=== PATIENT | male | born 1960 | race Caucasian/White ===

== ENCOUNTER 2020-03-21 03:57 | Emergency (ER) | payer OTHER ==
[~2020-03-21] VITALS: Ht 170.2 cm; Wt 70.3 kg
[~2020-03-21 03:57] MED LIST: CIPR-273; HYDR1INJ8; NOR10T; OXYB5TAB24; PHENERGAN; TAM04C; TRAZ50TA2; VENL25TA3
[2020-03-21 05:54] VITALS: BP 148/94
[2020-03-21] MEDS: LORazepam 2MG/ML-1ML VIAL IM ONE (05:54)
== END 2020-03-21 06:39 | disposition home or self-care (01) ==
LOC: ER 03:59
DX: F41.0 Panic disorder [episodic paroxysmal anxiety] (principal); I10 Essential (primary) hypertension
CPT/HCPCS: 93005; 96372; 99283; J2060

== ENCOUNTER 2020-04-02 07:47 | Emergency (ER) | payer OTHER ==
[~2020-04-02] VITALS: Ht 170.2 cm; Wt 70.3 kg
[2020-04-02] MEDS ORDERED: ONDANSETRON HCL 4 MG/2 ML VIAL IV ONE ×2 (08:00→13:45)
[2020-04-02] MEDS ORDERED: SODIUM CHLORIDE 0.9% 1,000 ML IV ONE ×2 (08:00)
[2020-04-02 08:38] LABS: Basophils # (auto) 0 10 ^3/uL (0-0.2); Basophils % (auto) 0.4 % (0.0-2.0); Eosinophils # (auto) 0 10 ^3/uL (0-0.8); Eosinophils % (auto) 0.3 % (0.0-7.0); Hematocrit 43.2 % (41.0-53.0); Hemoglobin 15.2 g/dL (13.5-17.5); Lymphocytes # (auto) 0.9 10 ^3/uL (0.4-5.4); Lymphocytes % (auto) 9.7 % (10.0-50.0); Mean Corpuscular Hgb Conc. 35.2 g/dL (32.0-36.0); Mean Corpuscular Volume 90.8 fL (80.0-100.0); Monocytes # (auto) 0.5 10 ^3/uL (0-1.3); Monocytes % (auto) 5.2 % (0.0-12.0); Neutrophils # (auto) 7.5 10 ^3/uL (1.6-8.6); Neutrophils % (auto) 84.4 % (37.0-80.0); Platelet Count (auto) 234 10^3/uL (140-450); Red Blood Cells 4.75 10^6/uL (4.5-5.90); Red Cell Distribution Width 15.4 % (11.8-14.3); White Blood Cell 8.9 10^3/uL (4.4-10.8)
[2020-04-02 09:02] LABS: Albumin 4.5 g/dL (3.4-5.0); Calcium 9.8 mg/dL (8.5-10.1); Potassium 3.7 mmol/L (3.5-5.1)
[2020-04-02 09:07] LABS: BUN/Creatinine Ratio 18.5; Bilirubin, Total 0.4 mg/dL (0.2-1.0); Total Protein 7.8 g/dL (6.4-8.2)
[2020-04-02] MEDS ORDERED: KETOROLAC TROMETH 30 MG/ML 1ML VIAL IV ONE (10:15)
[2020-04-02] MEDS ORDERED: PROMETHAZINE HCL 25 MG/ML 1ML IV ONE (10:15)
[2020-04-02] MEDS ORDERED: LABETALOL HCL 5 MG/ML 4ML SYRINGE IV ONE ×2 (10:15→12:30)
[2020-04-02] MEDS ORDERED: MORPHINE SULF INJ 2 MG/ML SYRINGE 1ML IV ONE (13:45)
[2020-04-02 14:32] LABS: Urine Bacteria FEW /hpf (None Seen); Urine Blood Negative /uL (Negative); Urine Specific Gravity 1.013 (1.001-1.035); Urine WBC 2 /hpf (0 - 3)
[2020-04-02] MEDS ORDERED: cefTRIAXone 1GM/50ML D5W 50 ML IV ONE ×2 (16:12→16:15)
[2020-04-02 16:18] VITALS: BP 145/95
== END 2020-04-02 16:34 | disposition short-term general hospital (02) ==
LOC: ER 07:47 → EDBD 07:47 → ER 16:34
DX: F41.9 Anxiety disorder, unspecified (principal); R11.2 Nausea with vomiting, unspecified; I10 Essential (primary) hypertension; Z79.899 Other long term (current) drug therapy; Z20.822 Contact with and (suspected) exposure to COVID-19
CPT/HCPCS: 36415; 74176; 80053; 81001; 85025; 87426; 93005; 96361; 96365; 96375; 96376; 99285; J0696; J1885; J2270; J2405; J2550; J3490; J7030

== ENCOUNTER 2021-01-18 02:03 | Emergency (ER) | payer OTHER ==
[~2021-01-18] VITALS: Ht 170.2 cm; Wt 68.0 kg
[~2021-01-18 02:03] MED LIST changes: +NITR-87 PO; +VENL1TAB96; -VENL25TA3
[2021-01-18 04:23] VITALS: BP 126/102
[2021-01-18] MEDS ORDERED: ONDANSETRON ODT 4 MG TAB PO ONE (04:45)
[2021-01-18] MEDS ORDERED: hydrOXYzine HCL 10 MG TAB PO ONE (04:45)
== END 2021-01-18 05:01 | disposition home or self-care (01) ==
LOC: ER 02:03
DX: F41.0 Panic disorder [episodic paroxysmal anxiety] (principal); I12.9 Hypertensive chronic kidney disease with stage 1 through stage 4 chronic kidney disease, or unspecified chronic kidney disease; N18.9 Chronic kidney disease, unspecified
CPT/HCPCS: 99283; Q0162

== ENCOUNTER 2021-06-21 12:10 | Emergency (ER) | payer MEDICARE, OTHER ==
[~2021-06-21] VITALS: Ht 170.2 cm; Wt 65.8 kg
[2021-06-21] MEDS ORDERED: ONDANSETRON HCL 4 MG/2 ML VIAL IV ONE ×2 (13:00→14:00)
[2021-06-21] MEDS ORDERED: MORPHINE SULFATE INJECTION 2 MG/ML SYRG IV ONE (13:00)
[2021-06-21] MEDS ORDERED: SODIUM CHLORIDE 0.9% 500 ML IV ONE (13:00)
[2021-06-21 13:10] VITALS: BP 151/81
[2021-06-21 13:28] LABS: Urine Bacteria NONE SEEN /hpf (None Seen); Urine Blood 3+ /uL (Negative); Urine Specific Gravity 1.014 (1.001-1.035); Urine WBC 10 /hpf (0 - 3)
[2021-06-21 13:44] LABS: Amphetamine Screen, Urine NEGATIVE (NEGATIVE); Barbiturate Scree,Urine NEGATIVE (NEGATIVE); Benzodiazephine Screen, Urine NEGATIVE (NEGATIVE); Cannabinoid Screen, Urine POSITIVE (NEGATIVE); Cocaine Screen, Urine NEGATIVE (NEGATIVE); Opiate Scree,Urine NEGATIVE (NEGATIVE)
[2021-06-21 13:51] LABS: Phencyclidine Screen, Urine NEGATIVE (NEGATIVE)
[2021-06-21 14:22] LABS: Basophils # (auto) 0.1 10 ^3/uL (0-0.2); Basophils % (auto) 0.9 % (0.0-2.0); Eosinophils # (auto) 0 10 ^3/uL (0-0.8); Eosinophils % (auto) 0.3 % (0.0-7.0); Hematocrit 38.2 % (41.0-53.0); Hemoglobin 13.3 g/dL (13.5-17.5); Lymphocytes # (auto) 0.8 10 ^3/uL (0.4-5.4); Lymphocytes % (auto) 10.7 % (10.0-50.0); Mean Corpuscular Hemoglobin 30.8 pg (28.0-32.0); Mean Corpuscular Hgb Conc. 34.8 g/dL (32.0-36.0); Mean Corpuscular Volume 88.5 fL (80.0-100.0); Monocytes # (auto) 0.6 10 ^3/uL (0-1.3); Monocytes % (auto) 7.6 % (0.0-12.0); Neutrophils # (auto) 5.9 10 ^3/uL (1.6-8.6); Neutrophils % (auto) 80.5 % (37.0-80.0); Red Blood Cells 4.31 10^6/uL (4.5-5.90); Red Cell Distribution Width 14.9 % (11.8-14.3); White Blood Cell 7.3 10^3/uL (4.4-10.8)
[2021-06-21 14:42] LABS: Calcium 8.9 mg/dL (8.5-10.1); Potassium 3.4 mmol/L (3.5-5.1)
[2021-06-21 14:45] LABS: BUN/Creatinine Ratio 9.8; Bilirubin, Total 0.4 mg/dL (0.2-1.0); Total Protein 7.2 g/dL (6.4-8.2)
[2021-06-21] MEDS ORDERED: ONDANSETRON HCL 4 MG/2 ML VIAL ONE (15:10)
[2021-06-21] MEDS ORDERED: CIPR-173 PO (15:31)
== END 2021-06-21 15:42 | disposition home or self-care (01) ==
LOC: ER 12:10
DX: N39.0 Urinary tract infection, site not specified (principal); I12.9 Hypertensive chronic kidney disease with stage 1 through stage 4 chronic kidney disease, or unspecified chronic kidney disease; N18.9 Chronic kidney disease, unspecified; F12.10 Cannabis abuse, uncomplicated; Z87.442 Personal history of urinary calculi
CPT/HCPCS: 36415; 74176; 80053; 80307; 81001; 85025; 96361; 96374; 96375; 96376; 99284; J2270; J2405; J7040

== ENCOUNTER 2021-06-25 11:35 | Emergency (ER) | payer MEDICARE, OTHER ==
[~2021-06-25] VITALS: Ht 170.2 cm; Wt 63.5 kg
[~2021-06-25 11:35] MED LIST changes: +CIPR-173 PO
[2021-06-25] MEDS ORDERED: IOHEXOL 300 MG/ML 100ML BOTTLE IJ ONE ×2 (12:05→13:19)
[2021-06-25 13:31] LABS: Urine Bacteria NONE SEEN /hpf (None Seen); Urine Blood 3+ /uL (Negative); Urine Mucus FEW (None Seen); Urine Specific Gravity 1.022 (1.001-1.035); Urine WBC 7 /hpf (0 - 3)
[2021-06-25 13:59] LABS: Albumin 4.5 g/dL (3.4-5.0); Calcium 9.2 mg/dL (8.5-10.1)
[2021-06-25 14:03] LABS: BUN/Creatinine Ratio 19.1; Bilirubin, Total 0.5 mg/dL (0.2-1.0); Total Protein 7.8 g/dL (6.4-8.2)
[2021-06-25 14:04] LABS: INR 1.05 (0.9-1.15); Partial Thromboplastin Time 24.8 sec (23.6-33.0)
[2021-06-25] MEDS ORDERED: cefTRIAXone 1GM/50ML D5W 50 ML IV ONE (14:30)
[2021-06-25] MEDS ORDERED: SODIUM CHLORIDE 0.9% 1,000 ML IV ONE (14:30)
[2021-06-25 14:57] LABS: Basophils # (auto) 0.1 10 ^3/uL (0-0.2); Basophils % (auto) 1.2 % (0.0-2.0); Eosinophils # (auto) 0 10 ^3/uL (0-0.8); Eosinophils % (auto) 0.6 % (0.0-7.0); Hematocrit 42.6 % (41.0-53.0); Hemoglobin 14.4 g/dL (13.5-17.5); Lymphocytes # (auto) 0.8 10 ^3/uL (0.4-5.4); Lymphocytes % (auto) 10.9 % (10.0-50.0); Mean Corpuscular Hgb Conc. 33.7 g/dL (32.0-36.0); Mean Corpuscular Volume 88.8 fL (80.0-100.0); Monocytes # (auto) 0.4 10 ^3/uL (0-1.3); Monocytes % (auto) 4.8 % (0.0-12.0); Neutrophils # (auto) 6.3 10 ^3/uL (1.6-8.6); Neutrophils % (auto) 82.5 % (37.0-80.0); Nucleated Red Blood Cells % 0.6 %; Red Cell Distribution Width 14.5 % (11.8-14.3); White Blood Cell 7.7 10^3/uL (4.4-10.8)
[2021-06-25] MEDS ORDERED: ONDANSETRON HCL 4 MG/2 ML VIAL IV ONE (16:30)
[2021-06-26] MEDS ORDERED: MORPHINE SULFATE 4 MG/ML SYR/VIAL ONE (03:25)
[2021-06-26] MEDS ORDERED: ONDANSETRON HCL 4 MG/2 ML VIAL ONE (03:25)
[2021-06-26] MEDS ORDERED: ONDANSETRON HCL 4 MG/2 ML VIAL IV ONE (03:45)
[2021-06-26] MEDS ORDERED: MORPHINE SULFATE 4 MG/ML SYR/VIAL IV ONE (03:45)
[2021-06-26 03:58] VITALS: BP 128/88
== END 2021-06-26 04:05 | disposition short-term general hospital (02) ==
LOC: ER 11:35
DX: N28.9 Disorder of kidney and ureter, unspecified (principal); R31.9 Hematuria, unspecified; R53.1 Weakness; G89.29 Other chronic pain; R10.9 Unspecified abdominal pain; I12.9 Hypertensive chronic kidney disease with stage 1 through stage 4 chronic kidney disease, or unspecified chronic kidney disease; N18.9 Chronic kidney disease, unspecified; Z79.2 Long term (current) use of antibiotics; Z79.899 Other long term (current) drug therapy; Z20.822 Contact with and (suspected) exposure to COVID-19
CPT/HCPCS: 36415; 74176; 80053; 81001; 83605; 85025; 85610; 85730; 87040; 87426; 93005; 96365; 96375; 96376; 99285; J0696; J2270; J2405; J7030; Q9967

== ENCOUNTER 2023-11-09 13:44 | Inpatient (IN) | payer OTHER, MEDICARE ==
[~2023-11-09] VITALS: Ht 167.6 cm; Wt 62.8 kg
[~2023-11-09 13:44] MED LIST changes: -TAM04C; +TAMS-35; +TRAZ-227; -TRAZ50TA2; -VENL1TAB96; +VENL25TA40
[2023-11-09 14:56] LABS: Basophils # (auto) 0 10 ^3/uL (0-0.2); Basophils % (auto) 0.2 % (0.0-2.0); Eosinophils # (auto) 0.2 10 ^3/uL (0-0.8); Eosinophils % (auto) 2.1 % (0.0-7.0); Hematocrit 39.3 % (41.0-53.0); Hemoglobin 13.5 g/dL (13.5-17.5); Lymphocytes # (auto) 0.7 10 ^3/uL (0.4-5.4); Lymphocytes % (auto) 8.4 % (10.0-50.0); Mean Corpuscular Hemoglobin 33.3 pg (28.0-32.0); Mean Corpuscular Hgb Conc. 34.3 g/dL (32.0-36.0); Mean Corpuscular Volume 97.1 fL (80.0-100.0); Monocytes # (auto) 0.8 10 ^3/uL (0-1.3); Monocytes % (auto) 9.2 % (0.0-12.0); Neutrophils # (auto) 7.1 10 ^3/uL (1.6-8.6); Neutrophils % (auto) 80.1 % (37.0-80.0); Platelet Count (auto) 206 10^3/uL (140-450); Red Blood Cells 4.05 10^6/uL (4.5-5.90); Red Cell Distribution Width 13.3 % (11.8-14.3); White Blood Cell 8.8 10^3/uL (4.4-10.8)
[2023-11-09 15:08] LABS: Alanine Aminotransferase 16 U/L (7-40); Albumin 4.1 g/dL (3.2-4.8); Alkaline Phosphatase 89 U/L (46-116); Anion Gap 3 (5-15); Aspartate Aminotransferase 11 U/L (13-40); BUN/Creatinine Ratio 18.3 (10.0-20.0); Bilirubin, Total 0.8 mg/dL (0.2-1.0); Blood Urea Nitrogen 22 mg/dL (9-23); Calcium 8.9 mg/dL (8.7-10.4); Carbon Dioxide 24 mmol/L (20-31); Chloride 111 mmol/L (98-107); Glucose 92 mg/dL (74-106); Lipase 51 U/L (12-53); Potassium 3.8 mmol/L (3.5-5.1); Sodium 138 mmol/L (136-145)
[2023-11-09 15:09] LABS: Total Protein 5.9 g/dL (5.7-8.2)
[2023-11-09] MEDS: PANTOPRAZOLE 40 MG/10 ML VIAL INJ IV ONE ×2 (17:00→21:58)
[2023-11-09] MEDS: SODIUM CHLORIDE 0.9% 500 ML IVB ONE (17:00)
[2023-11-09] MEDS: ONDANSETRON HCL 4 MG/2 ML VIAL IV ONE (17:00)
[2023-11-09] MEDS ORDERED: NITROGLYCERIN 0.4 MG SL TAB SL PRN (17:45)
[2023-11-09] MEDS: SODIUM CHLORIDE 0.9% 1,000 ML IV SCH (21:22)
[2023-11-09] MEDS: ONDANSETRON HCL 4 MG/2 ML VIAL IV PRN (21:57)
[2023-11-09] MEDS: MORPHINE SULFATE INJ 2 MG/ml SYRG IV PRN (21:58)
[2023-11-09] MEDS: PIPERACILLIN-TAZOB 3.375GM 100 ML IV ONE (21:59)
[2023-11-09 22:00] VITALS: PULSE 69; RESP 16; O2SAT 96
[2023-11-09] MEDS: PANTOPRAZOLE 40 MG/10 ML VIAL INJ IV SCH (22:00)
[2023-11-09 23:44] VITALS: BP 126/72; PULSE 81; RESP 18; TEMP 98.8; O2SAT 98
[2023-11-10 01:00] VITALS: BP 135/78; PULSE 78; RESP 19; TEMP 97.8; O2SAT 97
[2023-11-10] MEDS ORDERED: BUPR-581 PO (01:26)
[2023-11-10] MEDS ORDERED: PRE5T PO (01:26)
[2023-11-10] MEDS ORDERED: QUET50TA27 PO (01:26)
[2023-11-10] MEDS ORDERED: AMIT-399 PO (01:26)
[2023-11-10] MEDS ORDERED: ESCI1TAB37 PO (01:26)
[2023-11-10] MEDS ORDERED: AMLO1TAB23 PO (01:26)
[2023-11-10] MEDS ORDERED: ALBU108A5 INH (01:26)
[2023-11-10] MEDS: LORazepam 2MG/ML-1ML VIAL IV PRN (01:42)
[2023-11-10] MEDS: PIPERACILLIN-TAZOB 3.375GM 100 ML IV SCH (03:52)
[2023-11-10 05:00] VITALS: BP 99/72; PULSE 73; RESP 19; TEMP 98; O2SAT 94
[2023-11-10 07:10] LABS: Basophils # (auto) 0 10 ^3/uL (0-0.2); Basophils % (auto) 0.3 % (0.0-2.0); Eosinophils # (auto) 0.2 10 ^3/uL (0-0.8); Eosinophils % (auto) 3.7 % (0.0-7.0); Hematocrit 35.1 % (41.0-53.0); Hemoglobin 12.3 g/dL (13.5-17.5); Lymphocytes # (auto) 0.9 10 ^3/uL (0.4-5.4); Lymphocytes % (auto) 18.6 % (10.0-50.0); Mean Corpuscular Hemoglobin 33.4 pg (28.0-32.0); Mean Corpuscular Volume 95.6 fL (80.0-100.0); Monocytes # (auto) 0.4 10 ^3/uL (0-1.3); Monocytes % (auto) 7.4 % (0.0-12.0); Neutrophils # (auto) 3.5 10 ^3/uL (1.6-8.6); Nucleated Red Blood Cells % 0.1 %; Platelet Count (auto) 170 10^3/uL (140-450); Red Blood Cells 3.67 10^6/uL (4.5-5.90); Red Cell Distribution Width 13.2 % (11.8-14.3)
[2023-11-10 07:42] LABS: Alanine Aminotransferase 14 U/L (7-40); Albumin 3.6 g/dL (3.2-4.8); Alkaline Phosphatase 80 U/L (46-116); Anion Gap 5 (5-15); Aspartate Aminotransferase 11 U/L (13-40); BUN/Creatinine Ratio 15.6 (10.0-20.0); Bilirubin, Total 0.5 mg/dL (0.2-1.0); Blood Urea Nitrogen 20 mg/dL (9-23); Calcium 8.5 mg/dL (8.7-10.4); Carbon Dioxide 24 mmol/L (20-31); Chloride 113 mmol/L (98-107); Glucose 75 mg/dL (74-106); Potassium 3.5 mmol/L (3.5-5.1); Sodium 142 mmol/L (136-145)
[2023-11-10 09:00] VITALS: BP 124/77; PULSE 69; RESP 18; TEMP 98.1; O2SAT 98
[2023-11-10] MEDS ORDERED: GASTROGRAFIN 120 ML SOL ONE (09:26)
[2023-11-10 13:00] VITALS: BP 103/66; PULSE 73; RESP 18; TEMP 97.8; O2SAT 93
[2023-11-10 17:00] VITALS: BP 135/83; PULSE 77; RESP 16; TEMP 98.1; O2SAT 94
[2023-11-10] MEDS: ERGOCALCIFEROL 50,000 UNIT(1.25MG) CAP PO SCH (17:21)
[2023-11-10] MEDS: CYANOCOBALAMIN (B-12) 1000 MCG/1 ML VIAL IM ONE (17:21)
[2023-11-10 22:00] VITALS: BP 132/81; PULSE 62; RESP 18; TEMP 97.6; O2SAT 95
[2023-11-11 01:00] VITALS: BP 130/84; PULSE 73; RESP 20; TEMP 98.2; O2SAT 95
[2023-11-11 05:00] VITALS: BP 137/75; PULSE 70; RESP 18; TEMP 98.2; O2SAT 94
[2023-11-11 07:39] LABS: Anion Gap 7 (5-15); Carbon Dioxide 24 mmol/L (20-31); Chloride 112 mmol/L (98-107); Potassium 3.1 mmol/L (3.5-5.1); Sodium 143 mmol/L (136-145)
[2023-11-11 07:41] LABS: Calcium 8.6 mg/dL (8.7-10.4)
[2023-11-11 07:44] LABS: Basophils # (auto) 0 10 ^3/uL (0-0.2); Basophils % (auto) 0.3 % (0.0-2.0); Eosinophils # (auto) 0.2 10 ^3/uL (0-0.8); Eosinophils % (auto) 3.5 % (0.0-7.0); Hematocrit 34.5 % (41.0-53.0); Hemoglobin 12.2 g/dL (13.5-17.5); Lymphocytes # (auto) 0.8 10 ^3/uL (0.4-5.4); Lymphocytes % (auto) 17.5 % (10.0-50.0); Mean Corpuscular Hemoglobin 33.7 pg (28.0-32.0); Mean Corpuscular Hgb Conc. 35.3 g/dL (32.0-36.0); Mean Corpuscular Volume 95.4 fL (80.0-100.0); Monocytes # (auto) 0.3 10 ^3/uL (0-1.3); Monocytes % (auto) 6.9 % (0.0-12.0); Neutrophils # (auto) 3.4 10 ^3/uL (1.6-8.6); Neutrophils % (auto) 71.8 % (37.0-80.0); Nucleated Red Blood Cells % 0.1 %; Platelet Count (auto) 176 10^3/uL (140-450); Red Blood Cells 3.62 10^6/uL (4.5-5.90); White Blood Cell 4.8 10^3/uL (4.4-10.8)
[2023-11-11 07:45] LABS: BUN/Creatinine Ratio 12.1 (10.0-20.0); Blood Urea Nitrogen 14 mg/dL (9-23); Glucose 80 mg/dL (74-106)
[2023-11-11 09:00] VITALS: BP 126/83; PULSE 61; RESP 19; TEMP 98.4; O2SAT 93
[2023-11-11] MEDS ORDERED: CYANOCOBALAMIN (B-12) 1000 MCG/1 ML VIAL IM SCH (10:00)
[2023-11-11 13:00] VITALS: BP 144/95; PULSE 66; RESP 19; TEMP 98; O2SAT 96
[2023-11-11] MEDS: POTASSIUM CHLORIDE 40 MEQ, LIDOCAINE 1% (LOCAL ANESTH.) 4 ML in SODIUM CHL 0.9% 250 ML IV ONE (14:20)
[2023-11-11] MEDS ORDERED: METR-344 PO (15:01)
== END 2023-11-11 15:35 | disposition home or self-care (01) | DRG 378 ==
LOC: ER 13:44 → EDBD 13:44 → OVERFLOW 17:39 → CENTRAL 23:30
PROVIDERS: ADMIT Internal Medicine; ATTEND Internal Medicine
DX: K92.2 Gastrointestinal hemorrhage, unspecified (principal); K56.600 Partial intestinal obstruction, unspecified as to cause; E86.0 Dehydration; F32.A Depression, unspecified; F41.9 Anxiety disorder, unspecified; E55.9 Vitamin D deficiency, unspecified; I11.9 Hypertensive heart disease without heart failure; F12.10 Cannabis abuse, uncomplicated; Z87.442 Personal history of urinary calculi; Z79.899 Other long term (current) drug therapy
CPT/HCPCS: 36415; 74176; 74250; 80048; 80053; 82306; 82607; 83036; 83690; 85025; 93005; 96374; 96375; G0378; J2003; J2405; J2470; J2543

== ENCOUNTER 2024-06-07 18:12 | Inpatient (IN) | payer MEDICARE, OTHER ==
[~2024-06-07] VITALS: Ht 165.1 cm; Wt 70.2 kg
[~2024-06-07 18:12] MED LIST changes: +ALBU108A5 INH; +AMIT-399 PO; +AMLO1TAB23 PO; +BUPR-581 PO; -CIPR-173 PO; -CIPR-273; +ESCI1TAB37 PO; +METR-344 PO; -NITR-87 PO; +QUET50TA27 PO
--- NOTE | 2024-06-07 20:23 | ED.PDOC ---
Nitish. trauma (HPI) HPI Comments 64 year old M, JUSTICE, with PMHx of anxiety, depression, kidney stones, CKF, HTN, and UTI's presents to the ED for CC of s/p fall. EMS reports, patient is coming from home where he suffered a fall at 0500 this morning (05/28/24); caused by tripping over his cat. Patient states, that he has been unable to bear weight o nto his right leg following trauma. Patient comments, that he has suffered x3 falls in the past [id number] due, to increased weakness. Patient complains, of current right hip pain. Patient has SHx of bilateral hip replacements. Patient denies head injury, cervical injury, or loss of consciousness. No other symptoms or modifying factors present at this time. Chief Complaint: Fall Injury Time Seen by MD: 19:35 Primary Care Provider: UNKNOWN Reviewed notes: Nurses Notes, Dental Biller Notes, Medications, Allergies Allergies: Coded Allergies: NO KNOWN ALLERGIES (Unverified , 04/02/20) Home Meds Active Scripts Metronidazole (Flagyl) 500 Mg Tab, 1 TAB PO TID for 5 Days, #15 TAB Prov:HOLLI LAWSON RESIDENT 11/11/23 Reported Medications Albuterol Sulfate (Albuterol Sulfate Hfa) 108 Mcg/Act Aer, 2 PUFF INH PRN 11/10/23 Bupropion Hcl (Bupropion Hcl Xl) 300 Mg Tab, 1 TAB PO DAILY 11/10/23 Amitriptyline HCl (Amitriptyline HCl) 10 Mg Tab, 1 TAB PO HS 11/10/23 Quetiapine Fumerate (QUETIAPINE FUMARATE) 50 Mg Tab, 50 TAB PO HS 11/10/23 Escitalopram Oxalate (ESCITALOPRAM OXALATE) 20 Mg Tab, 1 TAB PO DAILY 11/10/23 Amlodipine Besylate (Amlodipine Besylate) 10 Mg Tab, 1 TAB PO DAILY 11/10/23 Trazodone Hcl (Trazodone Hcl) 50 Mg Tab 10/13/09 Venlafaxine Hydrochloride (Effexor) 25 Mg Tab 10/13/09 Tamsulosin Hcl (Flomax) 0.4 Mg Cap 10/13/09 Oxybutynin Chloride (Ditropan Xl) 5 Mg Tab 10/13/09 [Phenergan] No Conflict Check 10/13/09 Hydrocodone-Acetaminophen ([place] 10/325MG) 1 Tab Tb 10/13/09 Hydromorphone Hcl (Dilaudid) 1 Mg/Ml Inj 10/13/09 Information Source: Patient, Emergency Med Personnel Mode of Arrival: EMS Severity: Moderate Timing: Hours Duration: Since onset Prehospital treatment: None Location: (R) Hip Location of laceration: None Mechanism: Fall Associated signs and symtoms: Weakness Past Medical History PAST MEDICAL HISTORY: Anxiety, CKF, Depression, HTN, Kidney Stones, UTI'S Surgical History (Other): BILATERAL HIP REPLACEMENT Family History Family History: Family hx of lung shilpa Social History Smoker: Non-Smoker Alcohol: Denies ETOH Use Drugs: Marijuana Lives In: Home Constitutional: reports: weakness; denies: chills, diaphoresis, fatigue, fever, malaise, sweats, others EENTM: denies: blurred vision, double vision, ear bleeding, ear discharge, ear drainage, ear pain, ear ringing, eye pain, eye redness, hearing loss, mouth pain, mouth swelling, nasal discharge, nose bleeding, nose congestion, nose pain, photophobia, tearing, throat pain, throat swelling, voice changes, others Respiratory: denies: cough, hemoptysis, orthopnea, SOB at rest, shortness of breath, SOB with excertion, stridor, wheezing, others Cardiovascular: denies: chest pain, dizzy spells, diaphoresis, Dyspnea on exertion, edema, irregular heart beat, left arm pain, lightheadedness, palpita tions, PND, syncope, others Gastrointestinal: denies: abdomen distended, abdominal pain, blood streaked jose wels, constipated, diarrhea, dysphagia, difficulty swallowing, hematemesis, melena, nausea, poor appetite, poor fluid intake, rectal bleeding, rectal pain, vomiting, others Genitourinary: denies: burning, dysuria, flank pain, frequency, hematuria, incontinence, penile discharge, penile sore, pain, testicle pain, testicle swelling, urgency, others Neurological: denies: dizziness, fainting, headache, left sided numbness, left sided weakness, numbness, paresthesia, pre-existing deficit, right sided numbness, right sided weakness, seizure, speech problems, tingling, tremors, weakness, others Musculoskeletal: reports: others (RIGHT HIP PAIN); denies: back pain, gout, joint pain, joint swelling, muscle pain, muscle stiffness, neck pain Integumetry: denies: bruises, change in color, change in hair/nails, dryness, laceration, lesions, lumps, rash, wounds, others Allergic/Immunocompromised: denies: Difficulty Healing, Frequent Infections, Hives, Itching, others Hematologic/Lymphatic: denies: anemia, blood clots, easy bleeding, easy bruising, swollen glands, others Endocrine: denies: excessive hunger, excessive sweating, excessive thirst, excessive urination, flushing, intolerance to cold, intolerance to heat, unexplained weight gain, unexplained weight loss, others Psychiatric: denies: anxiety, bipolar disorder, depression, hopeless, panic disorder, schizophrenia, sleepless, suicidal, others All Other Systems: Reviewed and Negative Physical Exam General Appearance: No Apparent Distress, Normal HEENT: Normal ENT Inspection, Pharynx Normal Neck: Full Range of Motion, Non-Tender, Normal, Normal Inspection Respiratory: Chest Non-Tender, Lungs Clear, No Accessory Muscle Use, No Respiratory Distress, Normal Breath Sounds Cardiovascular: No Edema, No Murmur, No Gallop, Normal Peripheral Pulses, Regular Rate/Rhythm Breast Exam: Deferred Gastrointestinal: No Organomegaly, Non Tender, No Pulsatile Mass, Normal Bowel Sounds, Soft Genitalia: Deferred Pelvic: Deferred Rectal: Deferred Extremities: No calf tenderness, Normal capillary refill, No pedal edema, Other (limited range of motion) Musculoskeletal : Location: Right Extremity Location: Hip Apperance: Tenderness Neurologic: Alert, No Motor Deficits, Normal Affect, Normal Mood, No Sensory Deficits Cerebellar Function: Normal Reflexes: Normal Skin: Dry, Normal Color, Warm Lymphatic: No Adenopathy Was a procedure done? Was a procedure done?: No Differential Diagnosis Multiple Trauma: Fractures, Contusion, Other (strain, dislocation) X-Ray, Labs, Meds, VS Vital Signs Date Time Temp Pulse Resp B/P (MAP) Pulse Ox O2 Delivery O2 Flow Rate FiO2 06/07/24 22:00 98.2 82 16 13/88 (63) 97 98.2 06/07/24 22:00 78 16 131/88 06/07/24 21:12 88 18 141/87 06/07/24 18:20 98.6 90 14 148/96 (113) 98 98.6 Lab Test 06/07/24 22:20 Range/Units White Blood Count Pending Red Blood Count Pending Hemoglobin Pending Hematocrit Pending Mean Corpuscular Volume Pending Mean Corpuscular Hemoglobin Pending Mean Corpuscular Hemoglobin Concent Pending Red Cell Distribution Width Pending Platelet Count Pending Mean Platelet Volume Pending Neutrophils (%) (Auto) Pending Lymphocytes (%) (Auto) Pending Monocytes (%) (Auto) Pending Basophils (%) (Auto) Pending Neutrophils # (Auto) Pending Lymphocytes # (Auto) Pending Monocytes # (Auto) Pending Sodium Level Pending Potassium Level Pending Chloride Level Pending Carbon Dioxide Level Pending Anion Gap Pending Blood Urea Nitrogen Pending Creatinine Pending Glomerular Filtration Rate Calc Pending BUN/Creatinine Ratio Pending Serum Glucose Pending Calcium Level Pending Current Medications Medications (Trade) Dose Ordered Sig/Elton Route Start Time Stop Time Status Last Admin Morphine Sulfate 4 mg ONCE ONCE IV 06/07/24 21:00 06/07/24 21:01 DC 06/07/24 21:12 Ondansetron HCl (Zofran) 4 mg ONCE ONCE IV 06/07/24 21:00 06/07/24 21:01 DC 06/07/24 21:11 X-Ray, Labs, Meds, VS Comment Hip x-ray: FINDINGS/IMPRESSION: : There appears to be a minimally displaced periprosthetic fracture of the proximal right femur with the fracture line at the base of the right greater trochanter. Right hip arthroplasty in place. No periprosthetic lucency. Prominent heterotopic ossification adjacent to the right greater trochanter. There is a chronic fracture fragment adjacent to the lesser trochanter. Left hip arthroplasty in place. The visualized components of the hardware are intact. Visualized bowel gas is nonobstructed. Patient will be admitted for orthopedic consult in the morning Patient will be admitted for pain control Time of 1ST Reevaluation: 20:05 Reevaluation 1ST: Unchanged Patient Education/Counseling: Diagnosis, Treatment Family Education/Counseling: No Family Present Departure 1 Departure Time of Disposition: 22:56 Impression: Primary Impression: Hip fracture Qualified Codes: S72.001A - Fracture of unspecified part of neck of right femur, initial encounter for closed fracture Additional Impression: Inadequate pain control Disposition: 09 ADMITTED INPATIENT Condition: Stable Discharged With: Self Critical Care Note Critical Care Time?: No Stability Stability form required: No Heart Score Heart Score: Heart Score Response (Comments) Value History N/A 0 EKG N/A 0 Age N/A 0 Risk Factors N/A 0 Troponin N/A 0 Total 0 I personally scribed for ERIC ARRIAGA ([email or web address]) on 06/07/24 at 20:23. Electronically submitted by Padmini Franco ([email or web address]). ERIC ARRIAGA Jun 07, 2024 20:23
[2024-06-07] MEDS: ONDANSETRON HCL 4 MG/2 ML VIAL IV ONE (21:11)
[2024-06-07] MEDS: MORPHINE SULFATE 4 MG/ML SYR/VIAL IV ONE (21:12)
--- NOTE | 2024-06-07 21:48 | DVH ---
CLINICAL INDICATION: fall TECHNIQUE: XY R HIP COMPLETE XRAY Comparison: CT abdomen and pelvis from 11/09/2023 FINDINGS/IMPRESSION: : There appears to be a minimally displaced periprosthetic fracture of the proximal right femur with th e fracture line at the base of the right greater trochanter. Right hip arthroplasty in place. No periprosthetic lucency. Prominent heterotopic ossification adjacent to the right greater trochanter. There is a chronic fract ure fragment adjacent to the lesser trochanter. Left hip arthroplasty in place. The visualized components of the hardware are intact. Visualized bowel gas is nonobstructed.
--- NOTE | 2024-06-07 22:28 | DVH ---
Exam: CT PELVIS WO CONTRAST History: fall Comparison Study: None available at time of dictation. Technique: Multidetector CT of the pelvis was performed from iliac crests to pubic symphysis after th e administration of intravenous contrast was administered during this examination. Portal venous imag ing was obtained. Axial, coronal and sagittal multiplanar reformats were performed by the technologis t on a separate workstation. Radiation Dose : CT Dose: CTDI volume is 16.96 mGy. Dose-length product is 661.51 mGy*cm Findings: Visualized bowel: No bowel wall thickening or dilatation. Ascites: Absent Lymphadenopathy: No pelvic or mesenteric lymphadenopathy. Vasculature: The visualized abdominal aorta is normal in size and caliber. Abdominal and pelvic vesse ls demonstrate normal enhancement. Pelvic Organs: Unremarkable Musculoskeletal: No acute osseous abnormality. Bladder: Unremarkable Soft tissues: Unremarkable. IMPRESSION: 1. No acute pelvic finding. 2. Bilateral total hip prostheses in place. 3. Beam hardening artifact obscuring detail however alignment appears grossly normal All CT scans at this medical facility are performed using dose modulation techniques as appropriate t o a performed exam including the following: Automated exposure control was utilized; adjustment of th e MA and/or KV according to patient size; and use of iterative reconstruction technique.
[2024-06-07 22:39] LABS: Basophils # (auto) 0.1 10 ^3/uL (0-0.2); Basophils % (auto) 0.8 % (0.0-2.0); Eosinophils # (auto) 0.2 10 ^3/uL (0-0.8); Eosinophils % (auto) 1.7 % (0.0-7.0); Hematocrit 38.1 % (41.0-53.0); Lymphocytes # (auto) 0.9 10 ^3/uL (0.4-5.4); Lymphocytes % (auto) 9.1 % (10.0-50.0); Mean Corpuscular Hemoglobin 32.1 pg (28.0-32.0); Mean Corpuscular Hgb Conc. 34.1 g/dL (32.0-36.0); Mean Corpuscular Volume 94.1 fL (80.0-100.0); Monocytes % (auto) 9.6 % (0.0-12.0); Neutrophils # (auto) 8.2 10 ^3/uL (1.6-8.6); Neutrophils % (auto) 78.8 % (37.0-80.0); Nucleated Red Blood Cells % 0.1 %; Platelet Count (auto) 238 10^3/uL (140-450); Red Blood Cells 4.05 10^6/uL (4.5-5.90); White Blood Cell 10.4 10^3/uL (4.4-10.8)
[2024-06-07 22:46] LABS: Potassium 4.2 mmol/L (3.5-5.1); Sodium 142 mmol/L (136-145)
[2024-06-07 22:47] LABS: Anion Gap 9 (5-15); Carbon Dioxide 22 mmol/L (20-31)
[2024-06-07 22:48] LABS: Calcium 9.7 mg/dL (8.7-10.4)
[2024-06-07 22:52] VITALS: PULSE 88; RESP 16; O2SAT 96
[2024-06-07 23:14] LABS: Blood Urea Nitrogen 29 mg/dL (9-23); Chloride 111 mmol/L (98-107); Glucose 108 mg/dL (74-106)
[2024-06-07] MEDS ORDERED: DOCUSATE SOD 100 MG CAP PO PRN (23:45)
[2024-06-07] MEDS ORDERED: ACETAMINOPHEN 325 MG TAB PO PRN (23:45)
--- NOTE | 2024-06-07 23:45 | DVHHPRES ---
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 , hypertension, hyperlipidemia, tardive dyskinesia, coronary artery disease, C diff colitis, anxiety, depression, neph rolithiasis, who comes in after sustaining a fall. Patient says he has been having falls off and on over the last 3 weeks, however, this morning he tripped on his CAT in fell which was more severe than any other falls he had previously sustained. Denies any loss of consciousness, denies any head trauma. Patient does note having 6-8 episodes of vomiting today, no blood in the vomitus. Prior to this episode, patient states he was able to ambulate independently. On review of systems patient is complaining of fatigue, fever, chills, cough, nausea, diarrhea, dysuria and anxiety. Per patient, he has been on oral steroids for pain management. Of note, patient has bilateral total hip prosthesis possibly secondary to avascular necrosis?? That he underwent at the [facility] in [place]. Of note, patient notes a weight loss of 30 lb in the last 12 months, unintentional. Per patient he had a colonoscopy 6 months ago which was unremarkable and a chest CT "ages ago". 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 , hypertension, hyperlipidemia, tardive dyskinesia, coronary artery disease, C diff colitis, anxiety, depression, nephrolithiasis Past Surgical History Bilateral hip replacement Past Social History Smokin pack per day for the last 10-12 years Alcohol: Denies Drugs: Uses marijuana edibles daily, denies using any other drugs Allergies: Denies Patient lives with his daughter. Review of Systems Constitutional: Yes: Fever, Chills, Malaise; No: Sweats, Weakness, Other Eyes: No: Pain, Vision change, Conjunctivae inflammation, Eyelid inflammation, Other, Redness ENT: No: Ear pain, Ear discharge, Nose pain, Nose discharge, Nose congestion, Mouth pain, Mouth swelling, Throat pain, Throat swelling, Other Respiratory: Cough; No: Dry, Shortness of breath, SOB with excertion, Wheezing, Hemoptysis, Pleuritic Pain, Sputum, Wheezing, Other Cardiovascular: No: Chest Pain, Palpitations, Orthopnea, Paroxysmal Noc. Dyspnea, Edema, Lt Headedness, Other Gastrointestinal: Nausea, Diarrhea; No: Vomiting, Abdominal Pain, Constipation, Melena, Hematochezia, Other Genitourinary: Dysuria; No Frequency, No Incontinence, No Hematuria, No Retention, No Other Musculoskeletal: No: other, neck pain, shoulder pain, arm pain, back pain, hand pain, leg pain, foot pain Skin: No: Rash, Lesions, Jaundice, Bruising, Other Neurological: No: Weakness, Numbness, Incoordination, Change in speech, Confusion, Seizures, Other Allergies: Coded Allergies: NO KNOWN ALLERGIES (Unverified , 04/02/20) Exam Vital Signs Vital Signs Date Time Temp Pulse Resp B/P (MAP) Pulse Ox O2 Delivery O2 Flow Rate FiO2 06/07/24 22:52 88 16 96 Room Air* 0 21 06/07/24 22:00 98.2 (63) 98.2 Exam Temporal wasting noted General Appearance: Alert, Oriented X3, Cooperative, mild distress HEENT: Atraumatic, PERRLA, EOMI Respiratory: Clear to auscultation, Normal air movement Cardiovascular: Regular rate, No murmurs Abdominal: Normal bowel sounds, Soft, Other (Mild generalized tenderness to palpation) Extremities: No edema Skin: No rashes Neuro: Normal speech, Strength at 5/5 X4 ext, Sensation intact, Other (Right lower extremity sensations intact, able to wiggle right lower extremity toes.) Psych/Mental Status: Mental status NL, Mood NL Labs/Xrays Labs Test 06/07/24 22:20 Range/Units White Blood Count 10.4 4.4-10.8 10^3/uL Red Blood Count 4.05 L 4.5-5.90 10^6/uL Hemoglobin 13.0 L 13.5-17.5 g/dL Hematocrit 38.1 L 41.0-53.0 % Mean Corpuscular Volume 94.1 80.0-100.0 fL Mean Corpuscular Hemoglobin 32.1 H 28.0-32.0 pg Mean Corpuscular Hemoglobin Concent 34.1 32.0-36.0 g/dL Red Cell Distribution Width 14.0 11.8-14.3 % Platelet Count 238 140-450 10^3/uL Mean Platelet Volume 8.1 6.9-10.8 fL Neutrophils (%) (Auto) 78.8 37.0-80.0 % Lymphocytes (%) (Auto) 9.1 L 10.0-50.0 % Monocytes (%) (Auto) 9.6 0.0-12.0 % Eosinophils (%) (Auto) 1.7 0.0-7.0 % Basophils (%) (Auto) 0.8 0.0-2.0 % Neutrophils # (Auto) 8.2 1.6-8.6 10 ^3/uL Lymphocytes # (Auto) 0.9 0.4-5.4 10 ^3/uL Monocytes # (Auto) 1.0 0-1.3 10 ^3/uL Eosinophils # (Auto) 0.2 0-0.8 10 ^3/uL Basophils # (Auto) 0.1 0-0.2 10 ^3/uL Nucleated Red Blood Cells 0.1 % Sodium Level 142 136-145 mmol/L Potassium Level 4.2 3.5-5.1 mmol/L Chloride Level 111 H 98-107 mmol/L Carbon Dioxide Level 22 20-31 mmol/L Anion Gap 9 5-15 Blood Urea Nitrogen 29 H 9-23 mg/dL Creatinine 1.38 H 0.700-1.30 mg/dL Glomerular Filtration Rate Calc 57 >90 mL/min BUN/Creatinine Ratio 21.0 H 10.0-20.0 Serum Glucose 108 H 74-106 mg/dL Calcium Level 9.7 8.7-10.4 mg/dL Assessment/Plan Assessment/Plan S/p mechanical fall, denies any LOC or head trauma Minimally displaced periprosthetic fracture of proximal right femur - hip x-ray: There appears to be a minimally displaced periprosthetic fracture of the proximal right femur with the fracture line at the base of the right greater trochanter. Right hip arthroplasty in place. No periprosthetic lucency. Prominent heterotopic ossification adjacent to the right greater trochanter. There is a chronic fracture fragment adjacent to the lesser trochanter. Left hip arthroplasty in place. The visualized components of the hardware are intact. Visualized bowel gas is nonobstructed. - pelvic CT: No acute pelvic finding. Bilateral total hip prosthesis in place. Beam hardening artifact obscuring detail however alignment appears grossly normal. - IV morphine 2 mg as needed - topical lidocaine patch - Tylenol as needed for mild pain - consulted Orthopedics - ordered serum vitamin-D, folic acid, B12, TSH Unintentional weight loss of 30 lb in the last 12 months - per patient completed colonoscopy a few months ago, was unremarkable - ordered CT chest - monitor Possible hypothyroidism, TSH 8.16 - ordered free T4, total T3 History of anxiety History of depression - resumed home medications escitalopram, bupropion, quetiapine MINOO likely hemodynamically mediated/VMN on CKD? - monitor Vitamin D deficiency - vit d 50k units once DVT prophylaxis: Levonox 40mg Goals of care: Full code, discussed for >16 minutes on 06/07/24 Plan discussed with patient Plan discussed with Dr. Wang Plan discussed with: Patient, Other (RN) Date of Service: Jun 07, 2024 Billing Provider: LYNSEY WANG MD Common Visit Codes: [id number] INP/OBS CARE (HIGH) TON SIMMONS RESIDENT Jun 07, 2024 23:45
[2024-06-08] MEDS: HALOPERIDOL LACTATE 5 MG/ML INJ VIAL IM ONE (01:24)
[2024-06-08] MEDS: MORPHINE SULFATE INJ 2 MG/ml SYRG IV ONE (01:33)
[2024-06-08] MEDS: LIDOCAINE 5% TOPICAL PATCH TOP ONE (02:44)
[2024-06-08] MEDS: ENOXAPARIN SOD 40 MG/0.4 ML SYRINGE SC SCH (02:44)
[2024-06-08 06:27] LABS: Basophils # (auto) 0 10 ^3/uL (0-0.2); Basophils % (auto) 0.4 % (0.0-2.0); Eosinophils # (auto) 0.2 10 ^3/uL (0-0.8); Eosinophils % (auto) 1.9 % (0.0-7.0); Hematocrit 37.4 % (41.0-53.0); Hemoglobin 12.9 g/dL (13.5-17.5); Lymphocytes # (auto) 0.9 10 ^3/uL (0.4-5.4); Lymphocytes % (auto) 11.2 % (10.0-50.0); Mean Corpuscular Hemoglobin 32.7 pg (28.0-32.0); Mean Corpuscular Hgb Conc. 34.4 g/dL (32.0-36.0); Mean Corpuscular Volume 95.1 fL (80.0-100.0); Monocytes # (auto) 0.8 10 ^3/uL (0-1.3); Monocytes % (auto) 10.4 % (0.0-12.0); Neutrophils # (auto) 6.1 10 ^3/uL (1.6-8.6); Neutrophils % (auto) 76.1 % (37.0-80.0); Platelet Count (auto) 198 10^3/uL (140-450); Red Blood Cells 3.93 10^6/uL (4.5-5.90)
[2024-06-08 06:32] LABS: Alanine Aminotransferase 15 U/L (7-40); Albumin 4.1 g/dL (3.2-4.8); Alkaline Phosphatase 89 U/L (46-116); Anion Gap 6 (5-15); Aspartate Aminotransferase 14 U/L (13-40); BUN/Creatinine Ratio 20.3 (10.0-20.0); Calcium 9.3 mg/dL (8.7-10.4); Carbon Dioxide 23 mmol/L (20-31); Creatine Kinase IFCC 148 U/L (46-171); Potassium 4.3 mmol/L (3.5-5.1); Sodium 140 mmol/L (136-145)
[2024-06-08 06:33] LABS: Bilirubin, Total 0.6 mg/dL (0.2-1.0)
[2024-06-08 06:34] LABS: Blood Urea Nitrogen 27 mg/dL (9-23); Chloride 111 mmol/L (98-107); Glucose 114 mg/dL (74-106)
[2024-06-08 06:35] LABS: Folate (Folic Acid) 9.88 ng/mL (>5.38)
[2024-06-08] MEDS: ERGOCALCIFEROL 50,000 UNIT(1.25MG) CAP PO SCH (07:03)
[2024-06-08 08:00] VITALS: PULSE 67; RESP 16; O2SAT 92
--- NOTE | 2024-06-08 08:24 | DVH ---
INDICATION: ckd congenital kidney dx TECHNIQUE: Multiple real-time sonographic images of the kidneys and bladder were obtained. COMPARISON: None FINDINGS: The right kidney measures 9 cm in length, which is normal in size. There is normal echogeni city of the right kidney. No hydronephrosis. The left kidney measures 11 cm in length, which is normal in size. There is normal echogenicity of th e left kidney. No hydronephrosis. IMPRESSION: Bilateral medical renal disease. No hydronephrosis
--- NOTE | 2024-06-08 08:46 | DVH ---
CLINICAL INFORMATION: 64 years old, Male; 10 pack year history, unintentional weight loss 30 lb. TECHNIQUE: Axial CT imaging of the chest was performed without IV contrast. Sagittal and coronal ref ormatted images were made, stored and reviewed. Evaluation is limited without IV contrast. One or mor e of the following dose reduction techniques were used: Automated exposure control. Adjustment of mA and/or kV according to patient size. CTDIvol = 6.87 mGy DLP = 264.92 mGy-cm COMPARISON: None FINDINGS: Aorta: Mild atherosclerotic calcification. No aneurysm. Cardiac: Heart size is within normal limits. Dense coronary artery calcification. Mediastinum/kirk: Small subcentimeter mediastinal lymph nodes, likely reactive. Lungs: Mild dependent atelectasis. No focal consolidation. No pneumothorax or pleural effusion. No royal spicious pulmonary nodule visualized. Pulmonary arteries: No gross abnormality. Chest wall: No mass or other abnormality. Upper abdomen: Small hiatal hernia. Lobulated contour of both kidneys, partially visualized, not well evaluated on noncontrast enhanced exam, grossly similar in appearance compared to prior CT exams rikki ing back to 2020. Bones: No fracture or suspicious intraosseous lesions. IMPRESSION: 1. No evidence of acute disease in the chest. 2. No suspicious abnormality identified in the chest. No suspicious pulmonary nodule. 3. Small hiatal hernia. 4. Additional findings as described above.
[2024-06-08 09:03] LABS: COVID19 ANTIGEN SOFIA FIA NEGATIVE (NEGATIVE); Rapid Influenza A Negative (Negative); Rapid Influenza B Negative (Negative)
[2024-06-08 09:24] LABS: Free T4 (Free Thyroxine) 1.05 ng/dL (0.89-1.76); T3 Total 1.26 ng/mL (0.60-1.81)
[2024-06-08] MEDS ORDERED: PATIENTS OWN MEDICATION (Escitalopram Oxalate 1 TAB) PO SCH (10:00)
[2024-06-08] MEDS ORDERED: ENOXAPARIN SOD 40 MG/0.4 ML SYRINGE SC SCH (10:00)
[2024-06-08] MEDS: CITALOPRAM HYDROBR 20 MG TAB PO SCH (10:26)
[2024-06-08] MEDS: MORPHINE SULFATE INJ 2 MG/ml SYRG IV PRN (10:27)
[2024-06-08 10:40] LABS: Urine Bacteria None Seen /hpf (None Seen)
[2024-06-08 10:57] LABS: Urine Blood Negative /uL (Negative); Urine Clarity Clear (Clear); Urine Color Yellow (Yellow); Urine Hyaline Cast FEW /lpf (0 - 2); Urine Protein, UAD Negative (Negative); Urine Specific Gravity 1.024 (1.001-1.035); Urine Squamous Epithelial Cell FEW /hpf (<5); Urine Urobilinogen Normal (Negative); Urine WBC 1 /HPF (0-3)
[2024-06-08 11:03] LABS: Amphetamine Screen, Urine Neg (NEGATIVE); Cannabinoid Screen, Urine Pos (NEGATIVE); Opiate Scree,Urine Pos (NEGATIVE)
[2024-06-08 11:04] LABS: Barbiturate Scree,Urine Neg (NEGATIVE); Benzodiazephine Screen, Urine Neg (NEGATIVE); Cocaine Screen, Urine Neg (NEGATIVE); Phencyclidine Screen, Urine Neg (NEGATIVE)
[2024-06-08 12:00] VITALS: PULSE 77; RESP 18; O2SAT 95
--- NOTE | 2024-06-08 14:35 | DVHPNRES ---
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 Patient says he has been having falls off and on over the last 3 weeks, however, this morning he tripped on his CAT in fell which was more severe than any other falls he had previously sustained. Denies any loss of consciousness, denies any head trauma. Patient does note having 6-8 episodes of vomiting today, no blood in the vomitus. Prior to this episode, patient states he was able to ambulate independently. On review of systems patient is complaining of fatigue, fever, chills, cough, nausea, diarrhea, dysuria and anxiety. Per patient, he has been on oral steroids for pain management. Of note, patient has bilateral total hip prosthesis possibly secondary to avascular necrosis?? That he underwent at the [facility] in [place]. Of note, patient notes a weight loss of 30 lb in the last 12 months, unintentional. Per patient he had a colonoscopy 6 months ago which was unremarkable and a chest CT "ages ago". Patient was seen and examined on the bedside. He is alert, oriented x3. Complaint of right hip pain, generalized weakness and nausea. No other active complaint this time. ROS: Constitutional: No: Fever, Chills, Sweats, Weakness, Malaise, Other Eyes: No: Pain, Vision change, Conjunctivae inflammation, Eyelid inflammation, Other, Redness ENT: No: Ear pain, Ear discharge, Nose pain, Nose discharge, Nose congestion, Mouth pain, Mouth swelling, Throat pain, Throat swelling, Other Respiratory: Shortness of breath, improving No: Cough, Dry,Wheezing, Hemoptysis, Pleuritic Pain, Sputum, Wheezing, Other Cardiovascular: No: Chest Pain, Palpitations, Orthopnea, Paroxysmal Noc. Dyspnea, Edema, Lt Headedness, Other Gastrointestinal: No: Nausea, Vomiting, Abdominal Pain, Diarrhea, Constipation, Melena, Hematochezia, Other Musculoskeletal: Rt hip pain, No: other, neck pain, shoulder pain, arm pain, back pain, hand pain, leg pain, foot pain Neurological:; No: Weakness, Numbness, Incoordination, Change in speech, Confusion, Seizures Objective vital signs Vital Sign Date Time Temp Pulse Resp B/P (MAP) Pulse Ox O2 Delivery O2 Flow Rate FiO2 06/08/24 12:00 77 18 95 Room Air* 0 21 06/08/24 12:00 98.2 126/95 (105) 98.2 medications Current Medications Medications Dose Ordered Sig/Elton Route Start Time Stop Time Status Last Admin Dose Admin Acetaminophen 325 mg Q4HP PRN PO 06/07/24 23:45 Docusate Sodium 100 mg BIDPRN PRN PO 06/07/24 23:45 Patient Own Medication 1 tab DAILY PO 06/08/24 10:00 Quetiapine Fumarate 50 mg HS PO 06/08/24 22:00 Citalopram Hydrobromide 40 mg DAILY PO 06/08/24 10:00 06/08/24 10:26 40 MG Morphine Sulfate 2 mg Q4HPRN PRN IV 06/08/24 01:45 06/08/24 10:27 2 MG Enoxaparin Sodium 40 mg DAILY SC 06/08/24 02:15 06/08/24 02:44 40 MG Ergocalciferol 50,000 unit Q7D PO 06/08/24 06:45 06/08/24 07:03 50,000 UNIT Acetaminophen/ Hydrocodone Bitart 1 tab Q4HPRN PRN PO 06/08/24 10:45 Ondansetron HCl 4 mg Q8HPRN PRN IV 06/08/24 10:45 Examination Physical examination: General Appearance: Alert, Oriented X3, Cooperative, mild distress HEENT: Atraumatic, PERRLA, EOMI, Mucous membrane moist/pink Respiratory: Clear to auscultation, Normal air movement Cardiovascular: Regular rate, Normal S1, Normal S2, No murmurs, no chest wall tenderness Abdominal: Normal bowel sounds, Soft, No tenderness, No hepatosplenomegaly, No masses Extremities: Tenderness over the rt hip, No clubbing, No cyanosis, No edema, Normal pulses, No tenderness/swelling Skin: No rashes, No breakdown, No significant lesion Neuro: Normal speech, Strength at 5/5 X4 ext, Normal tone, Sensation intact, Cranial nerves 3-12 NL, Reflexes 2+ Psych/Mental Status: Mental status NL, Mood NL laboratory and microbiology Laboratory Tests 06/08/24 05:43 Test 06/08/24 05:43 Range/Units Serum Glucose 114 H 74-106 mg/dL Labs and/or images reviewed: Labs reviewed by me, Image(s) reviewed by me Problem List/Assessment/Plan Problem List/Assessment/Plan Assessment/Plan # S/p mechanical fall, denies any LOC or head trauma # Minimally displaced periprosthetic fracture of proximal right femur # Vitamin-D deficiency - Hip x-ray: There appears to be a minimally displaced periprosthetic fracture of the proximal right femur with the fracture line at the base of the right greater trochanter. Right hip arthroplasty in place. No periprosthetic lucency. Prominent heterotopic ossification adjacent to the right greater trochanter. There is a chronic fracture fragment adjacent to the lesser trochanter. Left hip arthroplasty in place. The visualized components of the hardware are intact. Visualized bowel gas is nonobstructed. - Pelvic CT: No acute pelvic finding. Bilateral total hip prosthesis in place. Beam hardening artifact obscuring detail however alignment appears grossly normal. - IV morphine 2 mg as needed - Topical lidocaine patch - Tylenol as needed for mild pain - Orthopedics evaluated the patient and recommended cast, nonweightbearing on the right side and follow up with Orthopedics in 1 week after discharge. - Vitamin-D 62399 units Q 7D. # Rule out malignancy - Unintentional weight loss of 30 lb in the last 12 months - per patient completed colonoscopy a few months ago, was unremarkable - CT chest unremarkable - Monitor # Possible subclinical hypothyroidism, TSH 8.16 - Normal Free T4 and T3. # History of anxiety/Depression - resumed home medications escitalopram, bupropion, quetiapine # MINOO on CKD likely hemodynamically mediated/VMN - Renal U/S showed bilateral medical renal disease - IV normal saline at 100 mL/hour - Monitor BMP DVT prophylaxis: Lovenox 40mg Goals of care: Full code, discussed for 20 minutes Plan discussed with Dr. Hutton Plan discussed with: Patient, Other (RN) My Orders My Orders Orders - DAVID ESTRADA Procedure Category Date Status Time Hydrocodone-Acet PHA 06/08/24 In Process 5/325mg Tab ([place] 10:45 Ondansetron Hcl PHA 06/08/24 In Process (Zofran) 10:45 Renal DIET 06/08/24 Transmitted Standard(2gna,3gk,Lopho) Dinner Addendum Addendum Addendum I was physically present for the prajapati portions of the service provided to patient by THE RESIDENT. I have reviewed the documentation, discussed the case with resident and agree with the resident's documentation except as noted. Also the patient's clinical case was discussed with the patient's nurse. This medical document was created using an electronic medical record system with computerized dictation system. Although this document has been carefully reviewed, there might still be some phonetic and typographical errors. These areas are purely typographical due to imperfections of the software programs, and do not reflect any compromise in the patient's medical care. Late signature. Date of Service: Jun 08, 2024 Billing Provider: ANGIE HUTTON MD Common Visit Codes: 51677-[id number] INP/OBS CARE(HIGH) Secondary Visit Codes: 69640-[id number] CARE PLAN 30 MINUTES (20 minutes) DAVID ESTRADA RESIDENT Jun 08, 2024 14:35 ANGIE HUTTON MD June 10, 2024 04:57
[2024-06-08] MEDS: SODIUM CHLORIDE 0.9% 1,000 ML IV SCH (15:16)
[2024-06-08] MEDS: ONDANSETRON HCL 4 MG/2 ML VIAL IV PRN (15:23)
[2024-06-08] MEDS: HYDROcodone-ACET 5/325MG TAB PO PRN (17:06)
--- NOTE | 2024-06-08 18:13 | DVHINCON2 ---
Consult Note Consult Consult Note Consulting Service: Orthopedic Surgery Referring Physician: ER Physician Reason for Consult: Right hip pain following ground-level fall HPI: The patient was evaluated in the emergency department following a ground-level fall. He complains of right hip pain. The emergency physician obtained an X-ray which revealed a periprosthetic greater trochanteric fracture of the right hip. CT scan was also performed for further characterization. No other injuries were reported. Review of Systems: Denies head trauma, loss of consciousness, headaches Denies pain in other joints Denies groin pain No bowel or bladder incontinence reported Physical Exam: Right hip: Tenderness to palpation over greater trochanter No groin tenderness Right lower extremity: Grossly neurovascularly intact, able to move toes and ankle No deformity or leg-length discrepancy noted Left lower extremity and bilateral upper extremities: No complaints Spine: No focal tenderness reported Assessment: Periprosthetic greater trochanteric fracture of the right hip Plan: Hx of Bilateral JIN many years ago with no concerns, was doing well till this fall.Has mulitple falls due to weakness for last few months per pt. Xray and CT of Bilateral hip reviewed NOTED minimally displaced periprosthetic fracture of the proximal right femur with the fracture line at the base of the right greater trochanter. Right hip arthroplasty in place. No periprosthetic lucency.Prominent heterotopic ossification adjacent to the right greater trochanter. There is a chronic fracture fragment adjacent to the lesser trochanter.Left hip arthroplasty in place. The visualized components of the hardware are intact. Case discussed with oncall surgeon Dr. Paulino recommendation as follows: Non-weight bearing on the right lower extremity until orthopedic follow-up next week,At follow-up: gradual transition to weight bearing as tolerated, with serial radiographs for fracture healing and or hardware eval. Pain control as managed by the emergency department Patient, bedside nurse, and ER physician in agreement with the plan All questions addressed at bedside Plan discussed with: Patient, Other (bedside nurse, hospitalist team) Visit Coding Surgery Date of Service if different f: Jun 08, 2024 Billing Provider: NIDHI COLE Surgery Visit Codes: 63302 - INP CONSULT <55 MIN NIDHI COLE Jun 08, 2024 18:13
[2024-06-08 18:15] VITALS: BP 127/93; PULSE 79; RESP 18; TEMP 98.1; O2SAT 94
[2024-06-08 20:00] VITALS: RESP 18
[2024-06-08 21:00] VITALS: BP 124/88; PULSE 84; RESP 18; TEMP 98.5; O2SAT 93
[2024-06-08] MEDS: QUEtiapine FUMARATE 25 MG TAB PO SCH (21:17)
[2024-06-08] MEDS ORDERED: QUETIAPINE FUMERATE PO SCH (22:00)
[2024-06-09 01:00] VITALS: BP 149/93; PULSE 82; RESP 18; TEMP 98.5; O2SAT 94
[2024-06-09 05:00] VITALS: BP 128/93; PULSE 89; RESP 18; TEMP 97.9; O2SAT 95
[2024-06-09 06:15] LABS: Anion Gap 7 (5-15); Carbon Dioxide 22 mmol/L (20-31); Potassium 4.2 mmol/L (3.5-5.1); Sodium 141 mmol/L (136-145)
[2024-06-09 06:16] LABS: Calcium 8.8 mg/dL (8.7-10.4); Chloride 112 mmol/L (98-107)
[2024-06-09 06:21] LABS: BUN/Creatinine Ratio 17.7 (10.0-20.0); Blood Urea Nitrogen 20 mg/dL (9-23); Glucose 90 mg/dL (74-106)
[2024-06-09 09:15] VITALS: BP 124/91; PULSE 85; RESP 17; TEMP 98.5; O2SAT 96
[2024-06-09 13:00] VITALS: BP 139/82; PULSE 84; RESP 94; TEMP 97.9; O2SAT 94
[2024-06-09] MEDS: HYDROcodone-ACET 10/325MG TAB PO PRN (13:21)
[2024-06-09] MEDS ORDERED: ERGO1CAP23 PO (15:11)
[2024-06-09] MEDS ORDERED: TRAM-626 PO (15:12)
[2024-06-09 16:25] VITALS: BP 132/80; PULSE 79; RESP 17; TEMP 97.8; O2SAT 95
--- NOTE | 2024-06-09 17:07 | DVHSR ---
APPROVED REPORT EXAM: Two-dimensional and M-mode echocardiogram with Doppler and color Doppler. Blood Pressure: 128/93 mmHg INDICATION Fracture RISK FACTORS Height: 5' 5", Weight: 154 DIMENSIONS LVDd4.1 (3.8-5.7cm)LA (2D)3.6 (1.9-4.0cm)Aortic Root3.9 (2.0-3.7cm) LVDs3.0 (2.5-4.0cm)LA (MM) (1.9-4.0cm)Aortic Cusp Exc1.7 (1.5-2.0cm) EF (%) 55.0 (55-70%)Rt. Atrium (1.9-4.0cm)Asc. Aorta cm IVSd1.4 (0.7-1.1cm)RV (D) (1.8-2.4cm) PWd1.2 (0.7-1.1cm) Mitral Valve MitralMitral Stenosis E wave0.80m/sMV Mean GR.mmHg A wave1.00m/sMV Peak GR.mmHg E/A ratio0.82D MVAcm2 Aortic Valve Aortic ValveAortic Stenosis V10.90m/Will Mean GR.4mmHg V21.40m/Will Peak GR.8mmHg LVOT Diameter2.1 (1.8-2.4cm)Doppler AVA2.23cm2 Pulmonic Valve V20.60m/s Conclusion Technically good study. Sinus rhythm. Aortic root enlargement. Right ventricular enlargement. Concentric LVH. Valves appear to be structurally normal. Left ventricular systolic performance is preserved. EF is 60% with normal RV function. Doppler is unremarkable. No pericardial effusion masses or vegetations.
--- NOTE | 2024-06-09 18:21 | DVHDSRES ---
Discharge Summary Date of Admission Resident Creating Document: DAVID ESTRADA RESIDENT Jun 07, 2024 at 23:41 Date of Discharge: June 09, 2024 Admitting Diagnosis Fall causing minimally displaced periprosthetic fracture of proximal right femur Wounds: No wound was present Labs/Diagnostic Data: Laboratory Results Test 06/09/24 05:12 06/08/24 09:00 06/08/24 06:07 06/08/24 05:43 Sodium Level 141 mmol/L (136-145) Potassium Level 4.2 mmol/L (3.5-5.1) Chloride Level 112 mmol/L (98-107) Carbon Dioxide Level 22 mmol/L (20-31) Anion Gap 7 (5-15) Blood Urea Nitrogen 20 mg/dL (9-23) Creatinine 1.13 mg/dL (0.700-1.30) Glomerular Filtration Rate Calc 73 mL/min (>90) BUN/Creatinine Ratio 17.7 (10.0-20.0) Serum Glucose 90 mg/dL (74-106) Calcium Level 8.8 mg/dL (8.7-10.4) Urine Color Yellow (Yellow) Urine Clarity Clear (Clear) Urine pH 6.0 (5.0-9.0) Urine Specific [place] 1.024 (1.001-1.035) Urine Protein Negative (Negative) Urine Ketones Negative (Negative) Urine Blood Negative /uL (Negative) Urine Nitrite Negative (Negative) Urine Bilirubin Negative (Negative) Urine Urobilinogen Normal mg/dL (Negative) Urine Leukocyte Esterase Negative /uL (Negative) Urine RBC <1 /hpf (0 - 3) Urine Microscopic WBC 1 /HPF (0-3) Urine Squamous Epithelial Cells Few /hpf (<5) Urine Bacteria None seen /hpf (None Seen) Urine Hyaline Casts Few /lpf (0 - 2) Urine Glucose Normal mg/dL (Normal) Urine Opiates Screen Pos (NEGATIVE) Urine Fentanyl Screen Neg (NEGATIVE) Urine Barbiturates Screen Neg (NEGATIVE) Urine Phencyclidine Screen Neg (NEGATIVE) Urine Amphetamines Screen Neg (NEGATIVE) Urine Benzodiazepines Screen Neg (NEGATIVE) Urine Cocaine Screen Neg (NEGATIVE) Urine Cannabinoids Screen Pos (NEGATIVE) Influenza Type A Antigen Negative (Negative) Influenza Type B Antigen Negative (Negative) SARS-CoV-2 Antigen (Rapid) Negative (NEGATIVE) White Blood Count 8.0 10^3/uL (4.4-10.8) Red Blood Count 3.93 10^6/uL (4.5-5.90) Hemoglobin 12.9 g/dL (13.5-17.5) Hematocrit 37.4 % (41.0-53.0) Mean Corpuscular Volume 95.1 fL (80.0-100.0) Mean Corpuscular Hemoglobin 32.7 pg (28.0-32.0) Mean Corpuscular Hemoglobin Concent 34.4 g/dL (32.0-36.0) Red Cell Distribution Width 14.0 % (11.8-14.3) Platelet Count 198 10^3/uL (140-450) Mean Platelet Volume 8.4 fL (6.9-10.8) Neutrophils (%) (Auto) 76.1 % (37.0-80.0) Lymphocytes (%) (Auto) 11.2 % (10.0-50.0) Monocytes (%) (Auto) 10.4 % (0.0-12.0) Eosinophils (%) (Auto) 1.9 % (0.0-7.0) Basophils (%) (Auto) 0.4 % (0.0-2.0) Neutrophils # (Auto) 6.1 10 ^3/uL (1.6-8.6) Lymphocytes # (Auto) 0.9 10 ^3/uL (0.4-5.4) Monocytes # (Auto) 0.8 10 ^3/uL (0-1.3) Eosinophils # (Auto) 0.2 10 ^3/uL (0-0.8) Basophils # (Auto) 0 10 ^3/uL (0-0.2) Nucleated Red Blood Cells 0.0 % Hemoglobin A1c 5.1 % A1C (<5.7) Total Bilirubin 0.6 mg/dL (0.2-1.0) Aspartate Amino Transferase (AST) 14 U/L (13-40) Alanine Aminotransferase (ALT) 15 U/L (7-40) Alkaline Phosphatase 89 U/L (46-116) Creatine Kinase 148 U/L (46-171) Total Protein 6.0 g/dL (5.7-8.2) Albumin 4.1 g/dL (3.2-4.8) Vitamin B12 Level 335 pg/mL (211-911) Vitamin D 25-Hydroxy 13.7 ng/mL (30.0-100) Folic Acid 9.88 ng/mL (>5.38) Thyroid Stimulating Hormone (TSH) 8.16 uIU/mL (0.55-4.78) Free Thyroxine (T4) Calculated 1.05 ng/dL (0.89-1.76) Total Triiodothyronine (TT3) 1.26 ng/mL (0.60-1.81) Other Laboratory Tests 06/09/24 05:12 06/08/24 05:43 Brief Hx & Hospital Course: Patient is a 64-year-old male with past medical history of 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 Patient says he has been having falls off and on over the last 3 weeks, however, this morning he tripped on his CAT in fell which was more severe than any other falls he had previously sustained. Denies any loss of consciousness, denies any head trauma. Patient does note having 6-8 episodes of vomiting today, no blood in the vomitus. Prior to this episode, patient states he was able to ambulate independently. On review of systems patient is complaining of fatigue, fever, chills, cough, nausea, diarrhea, dysuria and anxiety. Per patient, he has been on oral steroids for pain management. Of note, patient has bilateral total hip prosthesis possibly secondary to avascular necrosis?? That he underwent at the [facility] in [place]. Of note, patient notes a weight loss of 30 lb in the last 12 months, unintentional. Per patient he had a colonoscopy 6 months ago which was unremarkable and a chest CT "ages ago. Hospital course: Hip x-ray: There appears to be a minimally displaced periprosthetic fracture of the proximal right femur with the fracture line at the base of the right greater trochanter. Right hip arthroplasty in place. No periprosthetic lucency. Prominent heterotopic ossification adjacent to the right greater trochanter. There is a chronic fracture fragment adjacent to the lesser trochanter. Left hip arthroplasty in place. The visualized components of the hardware are intact. Visualized bowel gas is nonobstructed. Pelvic CT: No acute pelvic finding. Bilateral total hip prosthesis in place. Beam hardening artifact obscuring detail however alignment appears grossly normal. Orthopedics evaluated the patient and recommended nonweightbearing on the right side and follow up with Orthopedics in 1 week after discharge. was treated with IV morphine 2 mg as needed ,Topical lidocaine patch ,Tylenol as needed for pain and Vitamin-D 71202 units Q 7D. the patient and recommended home health for PT. Patient is being discharged to home with home health with vitamin-D 69250 units Q 7D for 10 weeks, advised to continue home medications. Patient was also advised to follow up with PCP in 1 week and to check BMP and with outpatient orthopedics in 1 week. Physical examination on discharge: General Appearance: Alert, Oriented X3, Cooperative, mild distress HEENT: Atraumatic, PERRLA, EOMI, Mucous membrane moist/pink Respiratory: Clear to auscultation, Normal air movement Cardiovascular: Regular rate, Normal S1, Normal S2, No murmurs, no chest wall tenderness Abdominal: Normal bowel sounds, Soft, No tenderness, No hepatosplenomegaly, No masses Extremities: Tenderness over the rt hip, No clubbing, No cyanosis, No edema, Normal pulses, No tenderness/swelling Skin: No rashes, No breakdown, No significant lesion Neuro: Normal speech, Strength at 5/5 X4 ext, Normal tone, Sensation intact, Cranial nerves 3-12 NL, Reflexes 2+ Psych/Mental Status: Mental status NL, Mood N Discussed with Dr. Hutton Consults/Reason for consult Orthopedics was consulted for right hip fracture Operations or Procedures Exam: CT PELVIS WO CONTRAST History: fall Radiation Dose : CT Dose: CTDI volume is 16.96 mGy. Dose-length product is 661.51 mGy*cm Findings: Visualized bowel: No bowel wall thickening or dilatation. Ascites: Absent Lymphadenopathy: No pelvic or mesenteric lymphadenopathy. Vasculature: The visualized abdominal aorta is normal in size and caliber. Abdominal and pelvic vessels demonstrate normal enhancement. Pelvic Organs: Unremarkable Musculoskeletal: No acute osseous abnormality. Bladder: Unremarkable Soft tissues: Unremarkable. IMPRESSION: 1. No acute pelvic finding. 2. Bilateral total hip prostheses in place. 3. Beam hardening artifact obscuring detail however alignment appears grossly normal CLINICAL INDICATION: fall TECHNIQUE: XY R HIP COMPLETE XRAY Comparison: CT abdomen and pelvis from 11/09/2023 FINDINGS/IMPRESSION: : There appears to be a minimally displaced periprosthetic fracture of the proximal right femur with the fracture line at the base of the right greater trochanter. Right hip arthroplasty in place. No periprosthetic lucency. Prominent heterotopic ossification adjacent to the right greater trochanter. There is a chronic fracture fragment adjacent to the lesser trochanter. Left hip arthroplasty in place. The visualized components of the hardware are intact. Visualized bowel gas is nonobstructed. Condition at Discharge: Stable Final Diagnosis/Problems List # S/p mechanical fall, denies any LOC or head trauma # Minimally displaced periprosthetic fracture of proximal right femur # Vitamin-D deficiency # MINOO on CKD hemodynamically mediated/VMN Discharge Disposition: Home with Health Services Discharge Instruct/Medications Diet: Regular Activity: See Comment Activity comment: Nonweightbearing on the R limb Follow Up/Referral: Follow up with PCP in 1 week and check BMP Follow up with outpatient Orthopedics in 1 week Medications: As per EMR Discharge Statement: "Patient was advised to return to the ER or call 911 if any headaches, dizziness, shortness of breath, chest pain, abdominal pain, bleeding, fevers, or worsening of medical condition. Patient was counseled about treatment plan, medications, possible side effects, patientverbalized understanding. All questions were answered to the best of my ability. This discharge took greater then 30 minutes in planning, reviewing documentation, counseling the patient, and discussing with other team members." ASSESSMENT ASSESSMENT Assessment # S/p mechanical fall, denies any LOC or head trauma # Minimally displaced periprosthetic fracture of proximal right femur # Vitamin-D deficiency # MINOO on CKD hemodynamically mediated/VMN Addendum Addendum Addendum I was physically present for the prajapati portions of the service provided to patient by THE RESIDENT. I have reviewed the documentation, discussed the case with resident and agree with the resident's documentation except as noted. Also the patient's clinical case was discussed with the patient's nurse. This medical document was created using an electronic medical record system with computerized dictation system. Although this document has been carefully reviewed, there might still be some phonetic and typographical errors. These areas are purely typographical due to imperfections of the software programs, and do not reflect any compromise in the patient's medical care. Late signature. Date of Service: June 09, 2024 Billing Provider: ANGIE HUTTON MD Common Visit Codes: 15299-ZIE/OBS DISCH DAY >30min DAVID ESTRADA RESIDENT June 09, 2024 18:21 ANGIE HUTTON MD June 10, 2024 05:01
== END 2024-06-09 17:16 | disposition home health service (06) | DRG 533 ==
LOC: EDBD 18:12 → ER 18:12 → OVERFLOW 23:41 → CENTRAL 06-08 18:01
PROVIDERS: ADMIT Internal Medicine; ATTEND Internal Medicine
DX: S72.8X1A Other fracture of right femur, initial encounter for closed fracture (principal); N17.0 Acute kidney failure with tubular necrosis; M97.01XA Periprosthetic fracture around internal prosthetic right hip joint, initial encounter; S72.111A Displaced fracture of greater trochanter of right femur, initial encounter for closed fracture; E03.9 Hypothyroidism, unspecified; R63.4 Abnormal weight loss; E55.9 Vitamin D deficiency, unspecified; F41.9 Anxiety disorder, unspecified; F32.A Depression, unspecified; E78.5 Hyperlipidemia, unspecified; I25.10 Atherosclerotic heart disease of native coronary artery without angina pectoris; N18.9 Chronic kidney disease, unspecified; I12.9 Hypertensive chronic kidney disease with stage 1 through stage 4 chronic kidney disease, or unspecified chronic kidney disease; Z96.642 Presence of left artificial hip joint; Z87.442 Personal history of urinary calculi; Z79.899 Other long term (current) drug therapy; Z68.25 Body mass index [BMI] 25.0-25.9, adult; X58.XXXA Exposure to other specified factors, initial encounter; Y93.89 Activity, other specified; Y92.89 Other specified places as the place of occurrence of the external cause
CPT/HCPCS: 36415; 71250; 72192; 73502; 76775; 80048; 80053; 80307; 81001; 82306; 82550; 82607; 82746; 83036; 84439; 84443; 84480; 85025; 86850; 86900; 86901; 87081; 87426; 87804; 93306; 96374; 96375; 97110; 97116; 97163; 97530; G0378; J2405

== ENCOUNTER 2024-07-22 02:23 | Emergency (ER) | payer MEDICARE ==
[~2024-07-22] VITALS: Ht 167.6 cm; Wt 63.8 kg
[~2024-07-22 02:23] MED LIST changes: +ERGO1CAP23 PO; -HYDR1INJ8; -METR-344 PO; +TRAM-626 PO
--- NOTE | 2024-07-22 02:45 | ED.PDOC ---
GI ASSESSMENT HPI Comments s C/C of loss of appetie x4 days, with nausea and x1 episode of vomiting yesterday. Pt states he had diarrhea "a long time ago." Denies abdominal pain. Pt anxious and restless upon Triage assessment. VSS. TREVINO. Time Seen by MD: 02:34 Primary Care Provider: UNKNOWN Reviewed Notes: Nurses Notes, Medications, Allergies Allergies: Coded Allergies: NO KNOWN ALLERGIES (Unverified , 04/02/20) Home Meds Active Scripts Promethazine Hcl (Promethazine Hcl) 25 Mg Tab, 1 TAB PO Q6HPRN PRN for 5 Days, #20 TAB Prov:JUAN MANUEL ARROYO CEMETERY MANAGER 07/22/24 Ciprofloxacin Hcl (Cipro) 500 Mg Tab, 500 MG PO BID for 7 Days, #14 TAB Prov:JUAN MANUEL ARROYO CEMETERY MANAGER 07/22/24 Ergocalciferol (VITAMIN D 03401 UNIT) 50,000 [place], [address] UNIT PO weekly for 10 Days, #10 CAP Prov:DAVID ESTRADA RESIDENT 06/09/24 Reported Medications Tramadol HCl (Tramadol HCl) 50 Mg Tab, 50 MG PO Q8HP PRN for 7 Days, #21 TAB 06/09/24 Tramadol HCl (Tramadol HCl) 50 Mg Tab, 50 MG PO Q8HP PRN for 7 Days, #21 TAB 06/09/24 Albuterol Sulfate (Albuterol Sulfate Hfa) 108 Mcg/Act Aer, 2 PUFF INH PRN 11/10/23 Bupropion Hcl (Bupropion Hcl Xl) 300 Mg Tab, 1 TAB PO DAILY 11/10/23 Amitriptyline HCl (Amitriptyline HCl) 10 Mg Tab, 1 TAB PO HS 11/10/23 Quetiapine Fumerate (QUETIAPINE FUMARATE) 50 Mg Tab, 50 TAB PO HS 11/10/23 Escitalopram Oxalate (ESCITALOPRAM OXALATE) 20 Mg Tab, 1 TAB PO DAILY 11/10/23 Amlodipine Besylate (Amlodipine Besylate) 10 Mg Tab, 1 TAB PO DAILY 11/10/23 Trazodone Hcl (Trazodone Hcl) 50 Mg Tab 10/13/09 Venlafaxine Hydrochloride (Effexor) 25 Mg Tab 10/13/09 Tamsulosin Hcl (Flomax) 0.4 Mg Cap 10/13/09 Oxybutynin Chloride (Ditropan Xl) 5 Mg Tab 10/13/09 [Phenergan] No Conflict Check 10/13/09 Hydrocodone-Acetaminophen ([place] 10/325MG) 1 Tab Tb 10/13/09 Information Source: Patient Past Medical History PAST MEDICAL HISTORY: Anxiety, CKF, Depression, HTN, Kidney Stones, UTI'S Family History Family History: Family hx of lung shilpa Social History Smoker: Non-Smoker Alcohol: Denies ETOH Use Drugs: Marijuana Lives In: Home Constitutional: denies: chills, diaphoresis, fatigue, fever, malaise, sweats, weakness, others EENTM: denies: blurred vision, double vision, ear bleeding, ear discharge, ear drainage, ear pain, ear ringing, eye pain, eye redness, hearing loss, mouth pain, mouth swelling, nasal discharge, nose bleeding, nose congestion, nose pain, photophobia, tearing, throat pain, throat swelling, voice changes, others Respiratory: denies: cough, hemoptysis, orthopnea, SOB at rest, shortness of breath, SOB with excertion, stridor, wheezing, others Cardiovascular: denies: chest pain, dizzy spells, diaphoresis, Dyspnea on exertion, edema, irregular heart beat, left arm pain, lightheadedness, palpitations, PND, syncope, others Gastrointestinal: reports: nausea Genitourinary: denies: burning, dysuria, flank pain, frequency, hematuria, incontinence, penile discharge, penile sore, pain, testicle pain, testicle swelling, urgency, others Neurological: denies: dizziness, fainting, headache, left sided numbness, left sided weakness, numbness, paresthesia, pre-existing deficit, right sided numbness, right sided weakness, seizure, speech problems, tingling, tremors, weakness, others Musculoskeletal: denies: back pain, gout, joint pain, joint swelling, muscle pain, muscle stiffness, neck pain, others Integumetry: denies: bruises, change in color, change in hair/nails, dryness, laceration, lesions, lumps, rash, wounds, others Allergic/Immunocompromised: denies: Difficulty Healing, Frequent Infections, Hives, Itching, others Hematologic/Lymphatic: denies: anemia, blood clots, easy bleeding, easy bruising, swollen glands, others Endocrine: denies: excessive hunger, excessive sweating, excessive thirst, excessive urination, flushing, intolerance to cold, intolerance to heat, unexplained weight gain, unexplained weight loss, others Psychiatric: denies: anxiety, bipolar disorder, depression, hopeless, panic disorder, schizophrenia, sleepless, suicidal, others Physical Exam General Appearance: No Apparent Distress, Normal HEENT: Normal ENT Inspection, Pharynx Normal, TMs Normal Neck: Full Range of Motion, Non-Tender Respiratory: Lungs Clear, No Respiratory Distress, Normal Breath Sounds Cardiovascular: No Edema, No JVD, No Murmur, No Gallop, Normal Peripheral Pulses, Regular Rate/Rhythm Breast Exam: Deferred Gastrointestinal: No Organomegaly, Non Tender, No Pulsatile Mass, Normal Bowel Sounds, Soft Genitalia: Deferred Pelvic: Deferred Rectal: Deferred Extremities: Normal capillary refill, Normal inspection, Normal range of motion, Non-tender, No pedal edema Musculoskeletal : Apperance: Normal Neurologic: Alert, No Motor Deficits, Normal Affect, Normal Mood, No Sensory Deficits Cerebellar Function: Normal Reflexes: Normal Skin: Dry, Pallor, Warm Lymphatic: No Adenopathy Was a procedure done? Was a procedure done?: No GI differential Dx Differential Diagnosis: Gastroenteritis, UTI, Viral X-Ray, Labs, Meds, VS Vital Signs Date Time Temp Pulse Resp B/P (MAP) Pulse Ox O2 Delivery O2 Flow Rate FiO2 07/22/24 04:16 98.0 89 16 132/88 (103) 100 98.0 07/22/24 02:23 97.7 89 18 132/88 (103) 95 97.7 Lab Test 07/22/24 02:44 07/22/24 00:00 Range/Units White Blood Count 7.5 4.4-10.8 10^3/uL Red Blood Count 4.89 4.5-5.90 10^6/uL Hemoglobin 15.7 13.5-17.5 g/dL Hematocrit 45.8 41.0-53.0 % Mean Corpuscular Volume 93.6 80.0-100.0 fL Mean Corpuscular Hemoglobin 32.2 H 28.0-32.0 pg Mean Corpuscular Hemoglobin Concent 34.3 32.0-36.0 g/dL Red Cell Distribution Width 14.0 11.8-14.3 % Platelet Count 235 140-450 10^3/uL Mean Platelet Volume 7.9 6.9-10.8 fL Neutrophils (%) (Auto) 67.1 37.0-80.0 % Lymphocytes (%) (Auto) 19.8 10.0-50.0 % Monocytes (%) (Auto) 8.6 0.0-12.0 % Eosinophils (%) (Auto) 3.1 0.0-7.0 % Basophils (%) (Auto) 1.4 0.0-2.0 % Neutrophils # (Auto) 5.0 1.6-8.6 10 ^3/uL Lymphocytes # (Auto) 1.5 0.4-5.4 10 ^3/uL Monocytes # (Auto) 0.6 0-1.3 10 ^3/uL Eosinophils # (Auto) 0.2 0-0.8 10 ^3/uL Basophils # (Auto) 0.1 0-0.2 10 ^3/uL Nucleated Red Blood Cells 0.0 % Sodium Level 139 136-145 mmol/L Potassium Level 4.1 3.5-5.1 mmol/L Chloride Level 108 H 98-107 mmol/L Carbon Dioxide Level 20 20-31 mmol/L Anion Gap 11 5-15 Blood Urea Nitrogen 20 9-23 mg/dL Creatinine 1.27 0.700-1.30 mg/dL Glomerular Filtration Rate Calc 63 >90 mL/min BUN/Creatinine Ratio 15.7 10.0-20.0 Serum Glucose 115 H 74-106 mg/dL Calcium Level 9.3 8.7-10.4 mg/dL Total Bilirubin 0.6 0.2-1.0 mg/dL Aspartate Amino Transferase (AST) 24 0-34 U/L Alanine Aminotransferase (ALT) 18 7-40 U/L Alkaline Phosphatase 184 H 46-116 U/L Total Protein 7.0 5.7-8.2 g/dL Albumin 4.9 H 3.2-4.8 g/dL Urine Color Yellow Yellow Urine Clarity Turbid H Clear Urine pH 5.5 5.0-9.0 Urine Specific [place] 1.025 1.001-1.035 Urine Protein 1+ H Negative Urine Ketones 1+ H Negative Urine Blood 1+ H Negative /uL Urine Nitrite Negative Negative Urine Bilirubin Negative Negative Urine Urobilinogen Normal Negative mg/dL Urine Leukocyte Esterase 3+ Negative /uL Urine RBC 21 0 - 3 /hpf Urine WBC Clumps Present None Seen /hpf Urine Microscopic WBC 1020 H 0-3 /HPF Urine Squamous Epithelial Cells Few <5 /hpf Urine Bacteria Mod H None Seen /hpf Urine Mucus Few None Seen Urine Glucose Normal Normal mg/dL Urine Opiates Screen Pos NEGATIVE Urine Fentanyl Screen Neg NEGATIVE Urine Barbiturates Screen Neg NEGATIVE Urine Phencyclidine Screen Neg NEGATIVE Urine Amphetamines Screen Neg NEGATIVE Urine Benzodiazepines Screen Neg NEGATIVE Urine Cocaine Screen Neg NEGATIVE Urine Cannabinoids Screen Pos NEGATIVE Current Medications Medications (Trade) Dose Ordered Sig/[place] Route Start Time Stop Time Status Last Admin Ondansetron HCl (Zofran Po) 4 mg ONCE ONCE PO 07/22/24 02:45 07/22/24 02:46 DC 07/22/24 04:15 X-Ray, Labs, Meds, VS Comment CBC CMP within normal limits UA positive leukocytes patient reports chronic h istory of UTIs we will script trial of Cipro also patient requesting refill of Phenergan he notes Zofran does not work for him for his nausea we will script temporary short term course of promethazine. Advised patient to take medications as prescribed side effects discussed. Advised to rest increase p.o. fluids with electrolytes. Advised to avoid caffeinated drinks. Patient to follow up with his PCP within 2-3 days advised on ER return precautions patient indicates understanding and agrees with discharge plan of care. Time of 1ST Reevaluation: 02:43 Reevaluation 1ST: Unchanged Time of 2ND Reevaluation: 03:39 Reevaluation 2ND: Improved Patient Education/Counseling: Diagnosis, Treatment, Prognosis, Need For Follow Up Family Education/Counseling: No Family Present Departure 1 Departure Time of Disposition: 03:38 Impression: Primary Impression: Nausea & vomiting Qualified Codes: R11.2 - Nausea with vomiting, unspecified Additional Impression: UTI (urinary tract infection) Qualified Codes: N30.00 - Acute cystitis without hematuria Disposition: 01 HOME / SELF CARE / HOMELESS Condition: Stable e-Prescriptions Promethazine Hcl (Promethazine Hcl) 25 Mg Tab 1 TAB PO Q6HPRN PRN for 5 Days, #20 TAB Prov: JUAN MANUEL ARROYO CEMETERY MANAGER 07/22/24 Ciprofloxacin Hcl (Cipro) 500 Mg Tab 500 MG PO BID for 7 Days, #14 TAB Prov: JUAN MANUEL ARROYO CEMETERY MANAGER 07/22/24 Discharged With: Self Critical Care Note Critical Care Time?: No Stability Stability form required: JUAN MANUEL Cm Jul 22, 2024 02:45
[2024-07-22 02:54] LABS: Basophils # (auto) 0.1 10 ^3/uL (0-0.2); Basophils % (auto) 1.4 % (0.0-2.0); Eosinophils # (auto) 0.2 10 ^3/uL (0-0.8); Eosinophils % (auto) 3.1 % (0.0-7.0); Hematocrit 45.8 % (41.0-53.0); Hemoglobin 15.7 g/dL (13.5-17.5); Lymphocytes # (auto) 1.5 10 ^3/uL (0.4-5.4); Lymphocytes % (auto) 19.8 % (10.0-50.0); Mean Corpuscular Hemoglobin 32.2 pg (28.0-32.0); Mean Corpuscular Hgb Conc. 34.3 g/dL (32.0-36.0); Mean Corpuscular Volume 93.6 fL (80.0-100.0); Monocytes # (auto) 0.6 10 ^3/uL (0-1.3); Monocytes % (auto) 8.6 % (0.0-12.0); Neutrophils % (auto) 67.1 % (37.0-80.0); Platelet Count (auto) 235 10^3/uL (140-450); Red Blood Cells 4.89 10^6/uL (4.5-5.90); White Blood Cell 7.5 10^3/uL (4.4-10.8)
[2024-07-22 03:08] LABS: Urine Bacteria MOD /hpf (None Seen); Urine Blood 1+ /uL (Negative); Urine Clarity Turbid (Clear); Urine Color Yellow (Yellow); Urine Mucus FEW (None Seen); Urine Protein, UAD 1+ (Negative); Urine Specific Gravity 1.025 (1.001-1.035); Urine Squamous Epithelial Cell FEW /hpf (<5); Urine Urobilinogen Normal (Negative); Urine WBC 1020 /HPF (0-3); Urine WBC Clumps PRESENT /hpf (None Seen); Urine pH 5.5 (5.0-9.0)
[2024-07-22 03:09] LABS: Alanine Aminotransferase 18 U/L (7-40); Anion Gap 11 (5-15); Aspartate Aminotransferase 24 U/L (0-34); BUN/Creatinine Ratio 15.7 (10.0-20.0); Bilirubin, Total 0.6 mg/dL (0.2-1.0); Blood Urea Nitrogen 20 mg/dL (9-23); Calcium 9.3 mg/dL (8.7-10.4); Potassium 4.1 mmol/L (3.5-5.1); Sodium 139 mmol/L (136-145)
[2024-07-22 03:10] LABS: Albumin 4.9 g/dL (3.2-4.8); Alkaline Phosphatase 184 U/L (46-116); Carbon Dioxide 20 mmol/L (20-31); Chloride 108 mmol/L (98-107); Glucose 115 mg/dL (74-106)
[2024-07-22 03:23] LABS: Amphetamine Screen, Urine Neg (NEGATIVE); Cannabinoid Screen, Urine Pos (NEGATIVE)
[2024-07-22 03:24] LABS: Barbiturate Scree,Urine Neg (NEGATIVE); Benzodiazephine Screen, Urine Neg (NEGATIVE); Cocaine Screen, Urine Neg (NEGATIVE); Opiate Scree,Urine Pos (NEGATIVE); Phencyclidine Screen, Urine Neg (NEGATIVE)
[2024-07-22] MEDS ORDERED: PROM25TA10 PO (03:42)
[2024-07-22] MEDS ORDERED: CIPR-173 PO (03:42)
[2024-07-22] MEDS: ONDANSETRON ODT 4 MG TAB PO ONE (04:15)
[2024-07-22 04:16] VITALS: BP 132/88; PULSE 89; RESP 16; TEMP 98; O2SAT 100
== END 2024-07-22 04:17 | disposition home or self-care (01) ==
LOC: ER 02:23
DX: N39.0 Urinary tract infection, site not specified (principal); R11.2 Nausea with vomiting, unspecified; F12.90 Cannabis use, unspecified, uncomplicated; F41.9 Anxiety disorder, unspecified; F32.A Depression, unspecified; I12.9 Hypertensive chronic kidney disease with stage 1 through stage 4 chronic kidney disease, or unspecified chronic kidney disease; N18.9 Chronic kidney disease, unspecified; Z87.440 Personal history of urinary (tract) infections; Z87.442 Personal history of urinary calculi; Z79.899 Other long term (current) drug therapy
CPT/HCPCS: 36415; 80053; 80307; 81001; 85025; 99283; Q0162

== ENCOUNTER 2024-08-21 12:48 | Inpatient (IN) | payer MEDICARE ==
[~2024-08-21] VITALS: Ht 167.6 cm; Wt 65.0 kg
--- NOTE | 2024-08-21 13:26 | ED.PDOC ---
GI ASSESSMENT HPI Comments 64 y.o male with PMHx of recurrent UTI's, kidney stones, CKD, sepsis, and HTN, presents to the ED for a chief complaint of nausea, vomiting, lower abdominal pain that started 3 days ago. Patient describes pain as sharp, constant, and rating a 8/10 on the pain scale. Patient reports 2 months ago had a right sided confirmed hip fracture s/p trip and fall, states no surgical intervention was made but is having pain to that side contributing to the pain rating scale. He denies any recent falls, fever, chills, hematuria. Chief Complaint: Nausea/Vomiting Time Seen by MD: 13:15 Primary Care Provider: UNKNOWN Reviewed Notes: Nurses Notes, Medications, Allergies Allergies: Coded Allergies: NO KNOWN ALLERGIES (Unverified , 04/02/20) Home Meds Active Scripts Ergocalciferol (VITAMIN D 57882 UNIT) 50,000 [place], [address] UNIT PO weekly for 10 Days, #10 CAP Prov:DAVID ESTRADA RESIDENT 06/09/24 Reported Medications Tramadol HCl (Tramadol HCl) 50 Mg Tab, 50 MG PO Q8HP PRN for 7 Days, #21 TAB 06/09/24 Tramadol HCl (Tramadol HCl) 50 Mg Tab, 50 MG PO Q8HP PRN for 7 Days, #21 TAB 06/09/24 Albuterol Sulfate (Albuterol Sulfate Hfa) 108 Mcg/Act Aer, 2 PUFF INH PRN 11/10/23 Bupropion Hcl (Bupropion Hcl Xl) 300 Mg Tab, 1 TAB PO DAILY 11/10/23 Amitriptyline HCl (Amitriptyline HCl) 10 Mg Tab, 1 TAB PO HS 11/10/23 Quetiapine Fumerate (QUETIAPINE FUMARATE) 50 Mg Tab, 50 TAB PO HS 11/10/23 Escitalopram Oxalate (ESCITALOPRAM OXALATE) 20 Mg Tab, 1 TAB PO DAILY 11/10/23 Amlodipine Besylate (Amlodipine Besylate) 10 Mg Tab, 1 TAB PO DAILY 11/10/23 Trazodone Hcl (Trazodone Hcl) 50 Mg Tab 10/13/09 Venlafaxine Hydrochloride (Effexor) 25 Mg Tab 10/13/09 Tamsulosin Hcl (Flomax) 0.4 Mg Cap 10/13/09 Oxybutynin Chloride (Ditropan Xl) 5 Mg Tab 10/13/09 [Phenergan] No Conflict Check 10/13/09 Hydrocodone-Acetaminophen ([place] 10/325MG) 1 Tab Tb 10/13/09 Information Source: Patient Mode of Arrival: EMS Timing: Days (3) Duration: Since onset Quality: Sharp Vomitus: None Stool: Normal Severity: Moderate Recent: None Recent Hx of: None Pain Location: Suprapubic Modifying Factors: Nothing Associated sign and symptoms: Nausea, Vomiting, Abdominal Pain Past Medical History PAST MEDICAL HISTORY: Anxiety, CKF, Depression, HTN, Kidney Stones, UTI'S Surgical History (Other): kidney stones removed, bilateral hip replacement Family History Family History: Family hx of lung shilpa Social History Smoker: Non-Smoker Alcohol: Denies ETOH Use Drugs: Marijuana Lives In: Home Constitutional: denies: chills, diaphoresis, fatigue, fever, malaise, sweats, weakness, others EENTM: denies: blurred vision, double vision, ear bleeding, ear discharge, ear drainage, ear pain, ear ringing, eye pain, eye redness, hearing loss, mouth pain, mouth swelling, nasal discharge, nose bleeding, nose congestion, nose pain, photophobia, tearing, throat pain, throat swelling, voice changes, others Respiratory: denies: cough, hemoptysis, orthopnea, SOB at rest, shortness of breath, SOB with excertion, stridor, wheezing, others Cardiovascular: denies: chest pain, dizzy spells, diaphoresis, Dyspnea on ex ertion, edema, irregular heart beat, left arm pain, lightheadedness, palpitations, PND, syncope, others Gastrointestinal: reports: abdominal pain, nausea, vomiting; denies: abdomen distended, blood streaked bowels, constipated, diarrhea, dysphagia, difficulty swallowing, hematemesis, melena, poor appetite, poor fluid intake, rectal bleeding, rectal pain, others Genitourinary: denies: burning, dysuria, flank pain, frequency, hematuria, incontinence, penile discharge, penile sore, pain, testicle pain, testicle swelling, urgency, others Neurological: denies: dizziness, fainting, headache, left sided numbness, left sided weakness, numbness, paresthesia, pre-existing deficit, right sided numbness, right sided weakness, seizure, speech problems, tingling, tremors, weakness, others Musculoskeletal: denies: back pain, gout, joint pain, joint swelling, muscle pain, muscle stiffness, neck pain, others Integumetry: denies: bruises, change in color, change in hair/nails, dryness, laceration, lesions, lumps, rash, wounds, others Allergic/Immunocompromised: denies: Difficulty Healing, Frequent Infections, Hives, Itching, others Hematologic/Lymphatic: denies: anemia, blood clots, easy bleeding, easy bruising, swollen glands, others Endocrine: denies: excessive hunger, excessive sweating, excessive thirst, excessive urination, flushing, intolerance to cold, intolerance to heat, unexplained weight gain, unexplained weight loss, others Psychiatric: denies: anxiety, bipolar disorder, depression, hopeless, panic disorder, schizophrenia, sleepless, suicidal, others All Other Systems: Reviewed and Negative Physical Exam General Appearance: Moderate Distress HEENT: Normal ENT Inspection, Pharynx Normal, TMs Normal Neck: Full Range of Motion, Non-Tender, Normal, Normal Inspection Respiratory: Chest Non-Tender, Lungs Clear, No Accessory Muscle Use, No Respiratory Distress, Normal Breath Sounds Cardiovascular: No Edema, No JVD, No Murmur, No Gallop, Normal Peripheral Pulses, Regular Rate/Rhythm Breast Exam: Deferred Gastrointestinal: Diffuse, No Organomegaly, No Pulsatile Mass, Normal Bowel Sounds, Soft, Tenderness Genitalia: Deferred Pelvic: Deferred Rectal: Deferred Extremities: No calf tenderness, Normal capillary refill, Normal inspection, Normal range of motion, Non-tender, No pedal edema Musculoskeletal : Apperance: Normal Neurologic: Alert, telescope maintenance II-XII nml as Tested, No Motor Deficits, Normal Affect, Normal Mood, No Sensory Deficits Cerebellar Function: Normal Reflexes: Normal Skin: Dry, Normal Color, Warm Lymphatic: No Adenopathy Was a procedure done? Was a procedure done?: No GI differential Dx Differential Diagnosis: Gastroenteritis, Inflammatory BD, UTI, Dehydration, Kidney Stone X-Ray, Labs, Meds, VS Vital Signs Date Time Temp Pulse Resp B/P (MAP) Pulse Ox O2 Delivery O2 Flow Rate FiO2 08/21/24 13:10 98.3 98 16 123/84 (97) 98 98.3 Lab Test 08/21/24 13:46 Range/Units White Blood Count 19.1 H 4.4-10.8 10^3/uL Red Blood Count 4.92 4.5-5.90 10^6/uL Hemoglobin 15.6 13.5-17.5 g/dL Hematocrit 45.9 41.0-53.0 % Mean Corpuscular Volume 93.3 80.0-100.0 fL Mean Corpuscular Hemoglobin 31.7 28.0-32.0 pg Mean Corpuscular Hemoglobin Concent 33.9 32.0-36.0 g/dL Red Cell Distribution Width 14.0 11.8-14.3 % Platelet Count 243 140-450 10^3/uL Mean Platelet Volume 8.2 6.9-10.8 fL Neutrophils (%) (Auto) 93.4 H 37.0-80.0 % Lymphocytes (%) (Auto) 1.9 L 10.0-50.0 % Monocytes (%) (Auto) 3.6 0.0-12.0 % Eosinophils (%) (Auto) 0.7 0.0-7.0 % Basophils (%) (Auto) 0.4 0.0-2.0 % Neutrophils # (Auto) 17.8 H 1.6-8.6 10 ^3/uL Lymphocytes # (Auto) 0.4 0.4-5.4 10 ^3/uL Monocytes # (Auto) 0.7 0-1.3 10 ^3/uL Eosinophils # (Auto) 0.1 0-0.8 10 ^3/uL Basophils # (Auto) 0.1 0-0.2 10 ^3/uL Nucleated Red Blood Cells 0.0 % Sodium Level 144 136-145 mmol/L Potassium Level 4.1 3.5-5.1 mmol/L Chloride Level 116 H 98-107 mmol/L Carbon Dioxide Level 17 L 20-31 mmol/L Anion Gap 11 5-15 Blood Urea Nitrogen 14 9-23 mg/dL Creatinine 1.34 H 0.700-1.30 mg/dL Glomerular Filtration Rate Calc 59 >90 mL/min BUN/Creatinine Ratio 10.4 10.0-20.0 Serum Glucose 116 H 74-106 mg/dL Calcium Level 9.2 8.7-10.4 mg/dL EXAM DESCRIPTION: CT CT AB PEL WO CON-NO ORAL OR IV IMPRESSION: 1. Intraluminal fluid throughout the colon, suggesting rapid transit / diarrheal state. 2. Coronary artery disease. IV Hep-Lock was established The patient was given normal saline as a bolus The patient was given Zofran 4 mg IV push The CBC shows elevated white blood cell count of 19.1 The chemistry panel shows creatinine of 1.34 The patient is being admitted to the hospitalist Images Reviewed?: Images reviewed and evaluated by me Time of 1ST Reevaluation: 13:26 Reevaluation 1ST: Unchanged Patient Education/Counseling: Diagnosis, Treatment, Prognosis Family Education/Counseling: No Family Present SEPSIS Sepsis Screen Physician Orders Urinalysis (08/21/24 13:32) Heplock Iv (08/21/24 13:32) Public Service Officer (08/21/24 13:32) Blood Pressure (08/21/24 13:32) Pulse Oximetry (08/21/24 13:32) Sodium Chloride 0.9% (08/21/24 13:45) Ct Ab Pel Wo Con-No Oral Or Iv (08/21/24 13:32) Vital Signs Date Time Temp Pulse Resp B/P (MAP) Pulse Ox O2 Delivery O2 Flow Rate FiO2 08/21/24 13:10 98.3 98 16 123/84 (97) 98 98.3 Laboratory Tests Test 08/21/24 13:46 White Blood Count 19.1 10^3/uL (4.4-10.8) H Departure 1 Departure Time of Disposition: 14:34 Impression: Primary Impression: Intractable abdominal pain Additional Impression: Intractable vomiting Disposition: 09 ADMITTED INPATIENT Admit to: Med Surg Condition: Fair Critical Care Note Critical Care Time?: No Stability Stability form required: Yes Unstable for transfer: ED Physician Assesment (Clinical assesment) I personally scribed for VALENTIN CESPEDES MD ([email or web address]) on 08/21/24 at 13:26. Electronically submitted by Judi Fregoso ([employer]). I personally scribed for VALENTIN CESPEDES MD ([email or web address]) on 08/21/24 at 14:21. Electronically submitted by Judi Fregoso ([employer]). VALENTIN CESPEDES MD Aug 21, 2024 13:26
[2024-08-21 13:55] LABS: Hematocrit 45.9 % (41.0-53.0); Hemoglobin 15.6 g/dL (13.5-17.5); Mean Corpuscular Hemoglobin 31.7 pg (28.0-32.0); Mean Corpuscular Volume 93.3 fL (80.0-100.0); Nucleated Red Blood Cells % 0.0 %
[2024-08-21 14:01] LABS: Chloride 116 mmol/L (98-107); Potassium 4.1 mmol/L (3.5-5.1); Sodium 144 mmol/L (136-145)
[2024-08-21 14:02] LABS: Anion Gap 11 (5-15); Calcium 9.2 mg/dL (8.7-10.4)
[2024-08-21 14:03] LABS: Carbon Dioxide 17 mmol/L (20-31)
[2024-08-21 14:07] LABS: BUN/Creatinine Ratio 10.4 (10.0-20.0); Blood Urea Nitrogen 14 mg/dL (9-23)
--- NOTE | 2024-08-21 14:08 | DVH ---
EXAM DESCRIPTION: CT CT AB PEL WO CON-NO ORAL OR IV CLINICAL HISTORY: pain COMPARISON: CT CT AB PEL WO CON-NO ORAL OR IV on DOS: 11/09/23, CT ABD PELVIS WO CONTRAST on DOS: 06/25, CT ABD PELVIS WO CONTRAST on DOS: 06/21/21, CT ABD PELVIS WO CONTRAST on DOS: 01/14/21, CT ABD PEL VIS WO CONTRAST on DOS: 04/02/20 TECHNIQUE: CT abdomen and pelvis without IV contrast was performed. Coronal and sagittal MPR images were generat ed.CTDI/ DLP = 10.69 / 656.09 Dose reduction technique with one or more of the following methods was performed: Automated exposure control, adjustment of the mA and/or kV according to patient size, use of iterative reconstruction [place] FINDINGS: Lower chest: Multivessel coronary artery disease. Liver: Homogenous in attenuation. . Biliary: No calcified gallstones. No biliary ductal dilatation. Pancreas: No fat stranding or focal lesion. Spleen: Normal in size.. Adrenal glands: No nodularity. Kidneys: No nephrolithiasis. No hydroureteronephrosis. Asymmetric right renal cortical scarring.. Bladder: The urinary bladder is obscured by streak artifact from the hip hardware Reproductive organs: The prostate gland is obscured by streak artifact from the hip hardware. Bowel: No visualized bowel wall thickening or dilatation, but portions of the distal large bowel are obscured by the streak artifact from the hip hardware. There is intraluminal fluid noted throughout t he colon. . Peritoneum: No free fluid. No free air. Vessels: Normal caliber abdominal aorta. Mild atherosclerotic calcifications.. Lymph nodes: No suspicious lymph nodes. Soft tissues: Unremarkable. . Osseous structures: No acute fracture or subluxation. No suspicious osseous lesions. Degenerative c hanges of the visualized thoracolumbar spine. Postoperative changes from bilateral hip arthroplasty. IMPRESSION: 1. Intraluminal fluid throughout the colon, suggesting rapid transit / diarrheal state. 2. Coronary artery disease.
[2024-08-21 14:09] LABS: Glucose 116 mg/dL (74-106)
[2024-08-21 15:30] LABS: Urine Budding Yeast OCCASIONAL /hpf (None Seen); Urine Protein, UAD 1+ (Negative)
[2024-08-21 16:30] VITALS: PULSE 64; RESP 18; O2SAT 97
[2024-08-21] MEDS: SODIUM CHLORIDE 0.9% 1,000 ML IV ONE (16:35)
[2024-08-21] MEDS: ONDANSETRON HCL 4 MG/2 ML VIAL IV ONE (16:35)
[2024-08-21] MEDS: MORPHINE SULFATE 4 MG/ML SYR/VIAL IV ONE (16:44)
[2024-08-21] MEDS ORDERED: NITROGLYCERIN 0.4 MG SL TAB SL PRN (22:30)
[2024-08-21] MEDS ORDERED: MORPHINE SULFATE INJ 2 MG/ml SYRG IV PRN (22:30)
--- NOTE | 2024-08-21 22:34 | DVHHP2 ---
History of Present Illness History of Present Illness Patient is a 64-year-old male with past medical history of CKD , hypertension, hyperlipidemia, tardive dyskinesia, coronary artery disease, C diff colitis, anxiety, depression, nephrolithiasis came to ED with the complaint of nausea, vomiting for 2 weeks which is worsen for last 3 days associated with abdominal pain which is intermittent, 5 - 6/10 intensity, stabbing in nature, no radiation, no aggravating or relieving factors. Vomitus contained food material but no blood stain mixed with vomitus. Patient also complained of alternate diarrhea and constipation for a long time but never seen by GI specialist. He had history of UTI month ago and treated with antibiotic. Patient noncompliant with his medications because of inactive health insurance. Patient taking antipsychotic medication diagnosed tardive dyskinesia, last seen by psychiatric 2 months ago. Denies any chest pain, SOB, headache, fever, vertigo, dizziness. Past Medical History: CKD , hypertension, hyperlipidemia, tardive dyskinesia, coronary artery disease, C diff colitis, anxiety, depression, nephrolithiasis Past Surgical History: Bilateral hip surgery Past Social History: Smokin pack per day for the last 10-12 years Alcohol: Denies Drugs: denies using any other drugs Allergies: Denies Patient lives with his daughter. PCP: Unknown Review of Systems Constitutional: Yes: Other (Movement on upper and lower extremity); No: Fever, Chills, Sweats, Weakness, Malaise Gastrointestinal: Nausea, Vomiting, Abdominal Pain, Diarrhea Genitourinary: No Dysuria, No Frequency, No Incontinence, No Hematuria, No Retention, No Other Musculoskeletal: No: other, neck pain, shoulder pain, arm pain, back pain, hand pain, leg pain, foot pain Skin: No: Rash, Lesions, Jaundice, Bruising, Other Neurological: No: Weakness, Numbness, Incoordination, Change in speech, Confusion, Seizures, Other Allergies: Coded Allergies: NO KNOWN ALLERGIES (Unverified , 04/02/20) Medications Current Medications Medications Dose Ordered Sig/Elton Route Start Time Stop Time Status Last Admin Dose Admin Nitroglycerin 0.4 mg Q5MINP PRN SL 08/21/24 22:30 Morphine Sulfate 2 mg Q30M PRN IV 08/21/24 22:30 Amitriptyline HCl 10 mg HS PO 08/22/24 22:00 UNV Amlodipine Besylate 10 mg DAILY PO 08/22/24 10:00 UNV Bupropion HCl 150 mg BID@07,19 PO 08/22/24 07:00 UNV Oxybutynin Chloride 5 mg Q12HR PO 08/22/24 10:00 UNV Quetiapine Fumarate 50 mg HS PO 08/22/24 22:00 UNV Famotidine 40 mg Q12HR PO 08/22/24 10:00 UNV Ondansetron HCl 4 mg Q6HR IV 08/22/24 00:00 UNV Exam Vital Signs Vital Signs Date Time Temp Pulse Resp B/P (MAP) Pulse Ox O2 Delivery O2 Flow Rate FiO2 08/21/24 22:03 98.0 77 20 102/54 (70) 99 98.0 08/21/24 19:04 Room Air 08/21/24 16:30 0 21 General Appearance: Alert, Oriented X3, Cooperative HEENT: PERRLA, EOMI Respiratory: Clear to auscultation, Normal air movement Cardiovascular: Regular rate, Normal S1, Normal S2 Abdominal: Normal bowel sounds, Soft, No tenderness, No hepatospenomegaly Extremities: No cyanosis, No edema, Normal pulses, Other (Uncontrolled movement observed both upper and lower extremity) Skin: No rashes, No breakdown Neuro: Normal gait, Normal speech, Sensation intact Labs/Xrays Labs Test 08/21/24 13:46 08/21/24 13:00 Range/Units White Blood Count 19.1 H 4.4-10.8 10^3/uL Red Blood Count 4.92 4.5-5.90 10^6/uL Hemoglobin 15.6 13.5-17.5 g/dL Hematocrit 45.9 41.0-53.0 % Mean Corpuscular Volume 93.3 80.0-100.0 fL Mean Corpuscular Hemoglobin 31.7 28.0-32.0 pg Mean Corpuscular Hemoglobin Concent 33.9 32.0-36.0 g/dL Red Cell Distribution Width 14.0 11.8-14.3 % Platelet Count 243 140-450 10^3/uL Mean Platelet Volume 8.2 6.9-10.8 fL Neutrophils (%) (Auto) 93.4 H 37.0-80.0 % Lymphocytes (%) (Auto) 1.9 L 10.0-50.0 % Monocytes (%) (Auto) 3.6 0.0-12.0 % Eosinophils (%) (Auto) 0.7 0.0-7.0 % Basophils (%) (Auto) 0.4 0.0-2.0 % Neutrophils # (Auto) 17.8 H 1.6-8.6 10 ^3/uL Lymphocytes # (Auto) 0.4 0.4-5.4 10 ^3/uL Monocytes # (Auto) 0.7 0-1.3 10 ^3/uL Eosinophils # (Auto) 0.1 0-0.8 10 ^3/uL Basophils # (Auto) 0.1 0-0.2 10 ^3/uL Nucleated Red Blood Cells 0.0 % Sodium Level 144 136-145 mmol/L Potassium Level 4.1 3.5-5.1 mmol/L Chloride Level 116 H 98-107 mmol/L Carbon Dioxide Level 17 L 20-31 mmol/L Anion Gap 11 5-15 Blood Urea Nitrogen 14 9-23 mg/dL Creatinine 1.34 H 0.700-1.30 mg/dL Glomerular Filtration Rate Calc 59 >90 mL/min BUN/Creatinine Ratio 10.4 10.0-20.0 Serum Glucose 116 H 74-106 mg/dL Calcium Level 9.2 8.7-10.4 mg/dL Urine Color Yellow Yellow Urine Clarity Turbid H Clear Urine pH 5.5 5.0-9.0 Urine Specific [place] 1.020 1.001-1.035 Urine Protein 1+ H Negative Urine Ketones Negative Negative Urine Blood Negative Negative /uL Urine Nitrite Negative Negative Urine Bilirubin Negative Negative Urine Urobilinogen Normal Negative mg/dL Urine Leukocyte Esterase Negative Negative /uL Urine RBC 2 0 - 3 /hpf Urine Microscopic WBC 2 0-3 /HPF Urine Squamous Epithelial Cells Few <5 /hpf Urine Calcium Oxalate Crystals Mod None Seen Urine Bacteria None seen None Seen /hpf Urine Hyaline Casts Few 0 - 2 /lpf Urine Mucus Few None Seen Urine Yeast (Budding) Occasional None Seen /hpf Urine Glucose Normal Normal mg/dL SEPSIS Sepsis Screen Date sepsis recognized/suspect: Aug 21, 2024 Time Sepsis recognized/suspect: 1906 Recent Procedure: No On Antibiotic Therapy: No Respiratory Rate >20: No Heart Rate >90: No Temp<36 C (96.8 F) or >38.3 C: No SBP <90 or MAP <65 mmHG: No New Acute Mental Status Change: No Is the patient on CPAP, BIPAP,: No Physician Orders Admit (08/21/24 22:18) Nitroglycerin Sublingual (Ntrostat Subli (08/21/24 22:30) Morphine Sulfate Injection (08/21/24 22:30) Oxygen By Nasal Cannula (08/21/24 22:18) Amitriptyline Hcl Tablet (Elavil Tablet) (08/22/24 22:00) Amlodipine Tablet (Norvasc Tablet) (08/22/24 10:00) Bupropion Tablet (Wellbutrin Tablet) (08/22/24 07:00) Oxybutynin Chloride Tablet (Ditropan Tab (08/22/24 10:00) Quetiapine Fumarate Tablet (Seroquel Tab (08/21/24 22:30) Quetiapine Fumarate Tablet (Seroquel Tab (08/22/24 22:00) Famotidine Tablet (Pepcid Tablet) (08/22/24 10:00) Clear Liq Diet (08/22/24 Breakfast) 1/2 Ns (08/21/24 22:30) Ciprofloxacin 400mg/200ml (Cipro Iv) (08/22/24 10:00) Metronidazole Ivpb Flagyl (08/22/24 06:00) Metronidazole Ivpb Flagyl (08/21/24 22:30) Lactic Acid W/ Reflex Order (08/21/24 22:20) Blood Culture (08/21/24 22:20) Urine Bacterial Culture (08/21/24 22:20) Clostridium Difficile Toxin (08/21/24 22:20) Ciprofloxacin 400mg/200ml (Cipro Iv) (08/21/24 22:30) Ondansetron Hcl (Zofran) (08/22/24 00:00) B-Type Natriuretic Peptide (08/21/24 22:20) Chest Xray 1 View (08/21/24 22:33) Vital Signs Date Time Temp Pulse Resp B/P (MAP) Pulse Ox O2 Delivery O2 Flow Rate FiO2 08/21/24 22:03 98.0 77 20 102/54 (70) 99 98.0 08/21/24 20:50 98.0 72 20 108/61 (77) 98 98.0 7/13/25 19:04 98.3 82 20 120/82 (95) 93 98.3 08/21/24 19:04 82 20 93 Room Air 08/21/24 17:05 64 17 124/81 08/21/24 16:44 64 18 128/81 08/21/24 16:30 64 18 97 Room Air* 0 21 08/21/24 16:30 98.0 64 18 128/81 (97) 97 98.0 Laboratory Tests Test 08/21/24 13:46 White Blood Count 19.1 10^3/uL (4.4-10.8) H Medications Medications Dose Ordered Sig/Elton Route Start Time Stop Time Status Last Admin Dose Admin Morphine Sulfate 4 mg ONCE ONCE IV 08/21/24 16:45 08/21/24 16:46 DC 08/21/24 16:44 4 MG Ondansetron HCl 4 mg ONCE ONCE IV 08/21/24 13:45 08/21/24 13:46 DC 08/21/24 16:35 4 MG Sodium Chloride 1,000 ml @ 1,000 mls/hr Q1H ONCE IV 08/21/24 13:45 08/21/24 14:44 DC 08/21/24 16:35 1,000 MLS/HR Assessment/Plan Assessment/Plan # Sepsis due to acute gastroenteritis rule out C diff -Patient came with nausea, vomiting, abdominal pain -CT abd/pelvis w/o contrast-Intraluminal fluid throughout the colon, suggesting rapid transit / diarrheal state. -Received NSS bolus, ondansetron, morphine IV in ER -BNP 24.4 -WBC count 19.1 with left shift neutrophil 93.4 -continue clear liquid diet -ciprofloxacin 400 mg IV Q 12 H -metronidazole 500 mg IV q.8h -ondansetron 4 mg IV q.6 H p.r.n. -/2 NSS 100 cc/ hour IV -blood culture, urine culture -stool for C diff -lactic acid level -MONITOR CBC # MINOO due to vasomotor nephropathy -serum creatinine 1.34>1.39, baseline 1.13 -/2 NSS 125 cc/hour -Avoid nephrotoxic drugs -Monitor BMP # Normal anion gap metabolic acidosis -Patient history of diarrhea -HCO3- 17, -AG 11 #Hypothyroidism, TSH 8.16 (06/08/2024) - TSH-1.89, free T4, total T3 #History of anxiety #History of depression - Resumed home medications amitriptyline, bupropion, quetiapine #Vitamin D deficiency - Vit d 50k /week # Urinary incontinence -Oxybutynin 5 mg p.o. b.i.d. # Tardive dyskinesia due to side effects of medications -Seen by psychiatrist and last visit 2 months ago -ON EXAMINATION, moment upper and lower extremity noted -Quetiapine 50 mg p.o. q.h.s. -Venlafaxine 150 mg p.o. b.i.d. Diet: Clear liquid GI prophylaxis: Pantoprazole 40 mg IV daily DVT prophylaxis: Heparin 5000 sc q.12h Goals of care: Full code status, plan discussed for >29 with patient. Case discussed with Dr. Wang Plan discussed with: Patient, Other (Nurse) My Orders Orders - CT GUIDRY RESIDENT Procedure Category Date Status Time Admit ADMIT 08/21/24 Transmitted 22:18 Nitroglycerin PHA 08/21/24 In Process Sublingual (Ntrostat 22:30 Morphine Sulfate PHA 08/21/24 In Process Injection 22:30 Oxygen By Nasal RT 08/21/24 Transmitted Cannula 22:18 Amitriptyline Hcl PHA 08/22/24 Logged Tablet (Elavil Tablet) 22:00 Amlodipine Tablet PHA 08/22/24 Logged (Norvasc Tablet) 10:00 Bupropion Tablet PHA 08/22/24 Logged (Wellbutrin Tablet) 07:00 Oxybutynin Chloride PHA 08/22/24 Logged Tablet (Ditropan Tab 10:00 Quetiapine Fumarate PHA 08/21/24 Logged Tablet (Seroquel Tab 22:30 Quetiapine Fumarate PHA 08/22/24 Logged Tablet (Seroquel Tab 22:00 Famotidine Tablet PHA 08/22/24 Transmitted (Pepcid Tablet) 10:00 Clear Liq Diet DIET 08/22/24 Transmitted Breakfast 1/2 Ns PHA 08/21/24 Transmitted 22:30 Ciprofloxacin PHA 08/22/24 Transmitted 400mg/200ml (Cipro Iv) 10:00 Metronidazole Ivpb PHA 08/22/24 Transmitted Flagyl 06:00 Metronidazole Ivpb PHA 08/21/24 Transmitted Flagyl 22:30 Lactic Acid W/ Reflex LAB 08/21/24 Logged Order 22:20 Blood Culture SREE 08/21/24 Logged 22:20 Urine Bacterial SREE 08/21/24 Logged Culture 22:20 Clostridium Difficile SREE 08/21/24 Logged Toxin 22:20 Ciprofloxacin PHA 08/21/24 Transmitted 400mg/200ml (Cipro Iv) 22:30 Ondansetron Hcl PHA 08/22/24 Logged (Zofran) 00:00 B-Type Natriuretic LAB 08/21/24 Logged Peptide 22:20 Chest Xray 1 View XY 08/21/24 Transmitted 22:33 Date of Service: Aug 21, 2024 Billing Provider: LYNSEY WANG MD Common Visit Codes: [id number] INP/OBS CARE (HIGH) Secondary Visit Codes: [id number] CARE PLAN [address] GUIDRY RESIDENT Aug 21, 2024 22:34
[2024-08-22] VITALS (8 sets, daily range): BP systolic 111–135; BP diastolic 69–88; PULSE 60–69; RESP 16–18; TEMP 98–98.4; O2SAT 92–97
[2024-08-22] MEDS: ONDANSETRON HCL 4 MG/2 ML VIAL IV SCH (00:05)
[2024-08-22] MEDS: SOD CHL 0.45% 1,000 ML IV SCH (00:12)
[2024-08-22] MEDS: CIPROFLOXACIN 400MG/200ML 200 ML IV ONE (01:48)
[2024-08-22 04:08] LABS: Hematocrit 36.4 % (41.0-53.0); Hemoglobin 12.4 g/dL (13.5-17.5); Mean Corpuscular Hemoglobin 32.2 pg (28.0-32.0); Mean Corpuscular Volume 94.6 fL (80.0-100.0); Nucleated Red Blood Cells % 0.1 %
[2024-08-22 04:10] LABS: Potassium 4.0 mmol/L (3.5-5.1); Sodium 142 mmol/L (136-145)
[2024-08-22 04:11] LABS: Anion Gap 8 (5-15); Calcium 9.1 mg/dL (8.7-10.4); Carbon Dioxide 22 mmol/L (20-31)
[2024-08-22 04:16] LABS: BUN/Creatinine Ratio 12.1 (10.0-20.0); Blood Urea Nitrogen 17 mg/dL (9-23); Glucose 88 mg/dL (74-106); Triglycerides 141 mg/dL (< 150)
[2024-08-22 04:18] LABS: Cholesterol 174 mg/dL (< 200)
[2024-08-22 04:41] LABS: Chloride 112 mmol/L (98-107); HDL Cholesterol 38 mg/dL (40-59)
--- NOTE | 2024-08-22 07:26 | DVH ---
CHEST RADIOGRAPH Indication: r/o cardiopulmonary disease Technique: Single frontal view of the chest was obtained Comparison: None FINDINGS: Lines and Tubes: None Lungs: Left basilar opacity. Pleura: No effusion. No pneumothorax. Cardiomediastinal contours: Unremarkable Bones: No acute osseous abnormality. IMPRESSION: 1. Left basilar opacity which may reflect atelectasis or pneumonia.
[2024-08-22] MEDS: ACETAMINOPHEN 325 MG TAB PO ONE ×2 (09:45→10:15)
[2024-08-22] MEDS: FAMOTIDINE 20 MG TAB PO SCH (09:45)
[2024-08-22] MEDS: OXYBUTYNIN CHL 5 MG TAB PO SCH (09:45)
[2024-08-22] MEDS: HEPARIN SODIUM (PORCINE) 5000 UNITS/ML 1ML VIAL SC SCH (09:46)
[2024-08-22] MEDS: CIPROFLOXACIN 400MG/200ML 200 ML IV SCH (09:53)
--- NOTE | 2024-08-22 14:35 | DVHPNRES ---
Progress Note Date Seen: Aug 22, 2024 Resident Creating Document: LEA LY RESIDENT Medical Necessity Reason Pt with a Central, PICC or Fol: No Subjective Review of Systems Patient is a 64-year-old male with past medical history of CKD, hypertension, hyperlipidemia, tardive dyskinesia, coronary artery disease, anxiety, depression, nephrolithiasis, history of fall 2 months ago, C diff colitis, and previous hospitalizations due to sepsis, came to the ED with chief complaints of nausea and vomiting since 2 weeks which got worse for the last 2 days associated with abdominal pain which was intermediate 6/10 and in intensity, stabbing in nature with no radiation all no aggravating or relieving factors and diarrhea since 2 days. The vomit contained food material but no blood. Patient states that he has alternate diarrhea and constipation, and vomiting since a long time. Patient also had a UTI 1 month ago and treated with antibiotics. He takes Wellbutrin and Seroquel for anxiety, depression, last seen by the psychiatrist 2 months ago. Patient had undergone a colonoscopy 3 years ago which had benign polyps. He also complained that he could not pee for 2 days before getting admitted to the hospital. Patient denies any chest pain shortness of breath, headache, fever, nausea, vomiting, diarrhea today. Patient seen at bedside. Patient appears comfortable, alert x3, states that he feels better than yesterday will, complained of dizziness when standing up, pain in his hip and leg. No overnight events. He denies any nausea, vomiting, diarrhea, constipation, abdominal pain on palpation. Patient is discontinued on amitriptyline, oxybutynine. Pending bladder scan. Today WBC 7.3, creatinine 1.4. Objective vital signs Vital Sign Date Time Temp Pulse Resp B/P (MAP) Pulse Ox O2 Delivery O2 Flow Rate FiO2 08/22/24 09:44 111/73 08/22/24 09:00 98.0 65 18 92 98.0 08/22/24 08:00 Room Air* 0 21 Total Intake and Output 08/21/24 08/21/24 08/22/24 15:00 23:00 07:00 Intake Total 1000 ml 800 ml Balance 1000 ml 800 ml medications Current Medications Medications Dose Ordered Sig/Elton Route Start Time Stop Time Status Last Admin Dose Admin Nitroglycerin 0.4 mg Q5MINP PRN SL 08/21/24 22:30 Morphine Sulfate 2 mg Q30M PRN IV 08/21/24 22:30 Amlodipine Besylate 10 mg DAILY PO 08/22/24 10:00 08/22/24 09:44 10 MG Bupropion HCl 150 mg BID@07,19 PO 08/22/24 07:00 08/22/24 05:45 150 MG Quetiapine Fumarate 50 mg HS PO 08/22/24 22:00 Famotidine 20 mg DAILY PO 08/22/24 10:00 08/22/24 09:45 20 MG Sodium Chloride 1,000 ml @ 100 mls/hr Q10H IV 08/21/24 22:30 08/22/24 00:12 100 MLS/HR Ciprofloxacin 200 ml @ 200 mls/hr Q12HR IV 08/22/24 10:00 08/22/24 09:53 200 MLS/HR Metronidazole 100 ml @ 100 mls/hr Q8HR IV 08/22/24 06:00 08/22/24 05:45 100 MLS/HR Ondansetron HCl 4 mg Q6HR IV 08/22/24 00:00 08/22/24 05:45 4 MG Heparin Sodium (Porcine) 5,000 units Q12HR SC 08/22/24 10:00 08/22/24 09:46 5,000 UNITS Examination General: Patient alert and oriented in person, place and time. Patient following commands. HEENT: Normocephalic, atraumatic, moist mucous membranes Respiratory/pulmonary: Clear lungs bilaterally, vesicular murmurs present in almost all lung benjamin, no associated crackles or wheezes. Cardiovascular: Normal heart sounds S1 and S2 with no associated murmurs Abdomen: Abdomen nondistended, there is no pain to palpation in any of the abdominal quadrants, no palpable masses. Extremities: There is no peripheral edema present at the lower extremities. Peripheral Pulses: 3+ Radial (R). 3+ Radial (L). 3+ Dorsalis pedis (R). 3+ Dorsalis pedis(L) Skin: No rashes or pruritus, there is no sacral edema present at this time. Neurological: Intact cranial nerves with no focal neurologic deficits( involuntary movements due to medication side effect) laboratory and microbiology Laboratory Tests 08/22/24 03:25 Test 08/22/24 03:25 Range/Units Serum Glucose 88 74-106 mg/dL Problem List/Assessment/Plan Problem List/Assessment/Plan # Sepsis due to acute gastroenteritis, ruled out C diff -Patient came with nausea, vomiting, abdominal pain -CT abd/pelvis w/o contrast- Intraluminal fluid throughout the colon, suggesting rapid transit / diarrheal state, coronary artery disease -continue clear liquid diet -ciprofloxacin 400 mg IV Q 12 H -metronidazole 500 mg IV q.8h -ondansetron 4 mg IV q.6 H p.r.n. -blood culture, urine culture -lactic acid level- 0.7 # MINOO due to VMN -serum creatinine 1.34>1.39, baseline 1.13 -1/2 NSS 125 cc/hour -Avoid nephrotoxic drugs -Monitor BMP # Normal anion gap metabolic acidosis -Patient history of diarrhea and vomiting -HCO3- 17, -AG 11 #Hypothyroidism, TSH 8.16 (06/08/2024) - TSH-1.89, free T4, total T3 #History of anxiety #History of depression - Resumed home medications bupropion, quetiapine - stopped Amitriptyline #Vitamin D deficiency - Vit d 50k /week # Urinary incontinence -Stopped Oxybutynin - Bladder scan to rule out urinary retention, pending # Tardive dyskinesia due to side effects of medications -Seen by psychiatrist and last visit 2 months ago -Quetiapine 50 mg p.o. q.h.s. Diet: Clear liquid Goals of care discussed with patient for 23 minutes: Full code Case discussed with Dr. Soria Plan discussed with: Patient Dietary Evaluation Review Comments: 1) Advance to Renal specific 40gm protein diet 2) Monitor PO intake, wt trend, lab values Expected Outcomes/Goals: GI symptoms to improve fu 2-3 days Date of Service: Aug 22, 2024 Billing Provider: LANA SORIA MD Common Visit Codes: [id number] INP/OBS CARE(HIGH) LEA LY RESIDENT Aug 22, 2024 14:35 LANA SORIA MD Aug 24, 2024 21:36
--- NOTE | 2024-08-22 16:47 | MEDREC ---
[facility] ASP Intervention Section I [facility] ASP Intervention: IV to PO conversion (PLEASE CONSIDER IV TO PO CONVERSION FOR ANTIBIOTICS (PT TOLERATES FOOD AND IS TAKING PO MEDICATIONS). ) NASIM VALERIO PHARMACIST Aug 22, 2024 16:47
[2024-08-22] MEDS ORDERED: AMITRIPTYLINE HCL 10 MG TAB PO SCH (22:00)
[2024-08-23] VITALS (8 sets, daily range): BP systolic 120–152; BP diastolic 72–88; PULSE 62–77; RESP 14–18; TEMP 96.1–98.6; O2SAT 94–98
[2024-08-23 05:58] LABS: Hematocrit 37.2 % (41.0-53.0); Hemoglobin 12.5 g/dL (13.5-17.5); Mean Corpuscular Hemoglobin 31.5 pg (28.0-32.0); Mean Corpuscular Volume 94.0 fL (80.0-100.0); Nucleated Red Blood Cells % 0.2 %
[2024-08-23 06:26] LABS: Anion Gap 10 (5-15); Carbon Dioxide 20 mmol/L (20-31); Potassium 3.5 mmol/L (3.5-5.1); Sodium 142 mmol/L (136-145)
[2024-08-23 06:29] LABS: Calcium 8.5 mg/dL (8.7-10.4); Chloride 112 mmol/L (98-107)
[2024-08-23 06:32] LABS: BUN/Creatinine Ratio 7.5 (10.0-20.0); Glucose 76 mg/dL (74-106)
[2024-08-23 06:33] LABS: Blood Urea Nitrogen 8 mg/dL (9-23)
--- NOTE | 2024-08-23 13:15 | DVHPNRES ---
Progress Note Date Seen: Aug 23, 2024 Resident Creating Document: LEA LY RESIDENT Medical Necessity Reason Pt with a Central, PICC or Fol: No Subjective Review of Systems Patient is a 64-year-old male with past medical history of CKD, hypertension, hyperlipidemia, tardive dyskinesia, coronary artery disease, anxiety, depression, nephrolithiasis, history of fall 2 months ago, C diff colitis, and previous hospitalizations due to sepsis, came to the ED with chief complaints of nausea and vomiting since 2 weeks which got worse for the last 2 days associated with abdominal pain which was intermediate 6/10 and in intensity, stabbing in nature with no radiation all no aggravating or relieving factors and diarrhea since 2 days. The vomit contained food material but no blood. Patient states that he has alternate diarrhea and constipation, and vomiting since a long time. Patient also had a UTI 1 month ago and treated with antibiotics. He takes Wellbutrin and Seroquel for anxiety, depression, last seen by the psychiatrist 2 months ago. Patient had undergone a colonoscopy 3 years ago which had benign polyps. He also complained that he could not pee for 2 days before getting admitted to the hospital. Patient seen at bedside. Patient appears comfortable, alert x3, he complained of nausea, dizziness, and 1 episode of diarrhea last night. Nurse reports no overnight events. Orthostatic test was checked and is negative, and patient switched to cardiac diet. Patient denies any chest pain shortness of breath, headache, fever, nausea, vomiting, diarrhea, dysuria, blood in the urine today. Bladder scan done. Possible discharge tomorrow. Objective vital signs Vital Sign Date Time Temp Pulse Resp B/P (MAP) Pulse Ox O2 Delivery O2 Flow Rate FiO2 08/23/24 12:52 98.0 69 14 132/88 (103) 96 98.0 08/23/24 08:00 Room Air* 0 21 Total Intake and Output 08/22/24 08/22/24 08/23/24 15:00 23:00 07:00 Intake Total 500 ml 1750 ml 1100 ml Output Total 1000 ml Balance 500 ml 750 ml 1100 ml medications Current Medications Medications Dose Ordered Sig/Elton Route Start Time Stop Time Status Last Admin Dose Admin Amlodipine Besylate 10 mg DAILY PO 08/22/24 10:00 08/23/24 08:36 10 MG Bupropion HCl 150 mg BID@ PO 08/22/24 07:00 08/23/24 05:52 150 MG Quetiapine Fumarate 50 mg HS PO 08/22/24 22:00 08/22/24 21:05 50 MG Famotidine 20 mg DAILY PO 08/22/24 10:00 08/23/24 08:37 20 MG Sodium Chloride 1,000 ml @ 100 mls/hr Q10H IV 08/21/24 22:30 08/23/24 00:05 100 MLS/HR Ciprofloxacin 200 ml @ 200 mls/hr Q12HR IV 08/22/24 10:00 08/23/24 08:34 200 MLS/HR Metronidazole 100 ml @ 100 mls/hr Q8HR IV 08/22/24 06:00 08/23/24 05:52 100 MLS/HR Ondansetron HCl 4 mg Q6HR IV 08/22/24 00:00 08/23/24 10:53 4 MG Enoxaparin Sodium 40 mg DAILY SC 08/24/24 10:00 Examination General: Patient alert and oriented in person, place and time. Patient following commands. HEENT: Normocephalic, atraumatic, moist mucous membranes Respiratory/pulmonary: Clear lungs bilaterally, vesicular murmurs present in almost all lung benjamin, no associated crackles or wheezes. Cardiovascular: Normal heart sounds S1 and S2 with no associated murmurs Abdomen: Abdomen nondistended, there is no pain to palpation in any of the abdominal quadrants, no palpable masses. Extremities: There is no peripheral edema present at the lower extremities. Peripheral Pulses: 3+ Radial (R). 3+ Radial (L). 3+ Dorsalis pedis (R). 3+ Dorsalis pedis(L) Skin: No rashes or pruritus, there is no sacral edema present at this time. Neurological: Intact cranial nerves with no focal neurologic deficits( involuntary movements due to medication side effect) laboratory and microbiology Laboratory Tests 08/23/24 05:12 Test 08/23/24 05:12 Range/Units Serum Glucose 76 74-106 mg/dL Microbiology Date/Time Source Procedure Growth Status 08/21/24 22:50 Blood Blood Culture - Preliminary NO GROWTH AFTER 24 HOURS OF INCUBATION. Resulted 08/21/24 13:00 Voided Urine Urine Culture - Preliminary Resulted Problem List/Assessment/Plan Problem List/Assessment/Plan # Sepsis due to acute gastroenteritis, ruled out C diff - Patient came with nausea, vomiting, abdominal pain - CT abd/pelvis w/o contrast- Intraluminal fluid throughout the colon, suggesting rapid transit / diarrheal state, coronary artery disease - clear liquid diet changed to Cardiac diet - ciprofloxacin 400 mg IV Q 12 H - metronidazole 500 mg IV q.8h - ondansetron 4 mg IV q.6 H p.r.n. - blood culture, urine culture - lactic acid level- 0.7 # MINOO due to VMN - serum creatinine 1.34>1.39, baseline 1.13 - 1/2 NSS 125 cc/hour - Avoid nephrotoxic drugs - Monitor BMP # Normal anion gap metabolic acidosis - Patient history of diarrhea and vomiting - HCO3- 17, - AG 11 #Hypothyroidism, TSH 8.16 (06/08/2024) - TSH-1.89, free T4, total T3 #History of anxiety #History of depression - Resumed home medications bupropion, quetiapine - stopped Amitriptyline #Vitamin D deficiency - Vit d 50k /week # Urinary incontinence - Stopped Oxybutynin - Bladder scan done and showed Pre void: 278ml, Post void: 107ml # Tardive dyskinesia due to side effects of medications - Seen by psychiatrist and last visit 2 months ago - Quetiapine 50 mg p.o. q.h.s. Diet: Cardiac diet DVT PPx: Lovenox Goals of care discussed with patient for 23 minutes: Full code Case discussed with Dr. Soria Plan discussed with: Patient My Orders My Orders Orders - LEA LY Procedure Category Date Status Time Cardiac DIET 08/23/24 Transmitted Diet-2gna,Lofat,Lochol Lunch Dietary Evaluation Review Comments: 1) Advance to Renal specific 40gm protein diet 2) Monitor PO intake, wt trend, lab values Expected Outcomes/Goals: GI symptoms to improve fu 2-3 days Date of Service: Aug 23, 2024 Billing Provider: LANA SORIA MD Common Visit Codes: [id number] INP/OBS CARE(HIGH) LEA LY Aug 23, 2024 13:15 LANA SORIA MD Aug 24, 2024 21:48
[2024-08-23] MEDS: HYDROcodone-ACET 10/325MG TAB PO PRN (17:14)
[2024-08-23] MEDS: LOSARTAN POTASSIUM 50 MG TAB PO ONE (17:53)
[2024-08-24 01:00] VITALS: BP 105/63; PULSE 70; RESP 17; TEMP 96.5; O2SAT 95
[2024-08-24 05:00] VITALS: BP 113/72; PULSE 62; RESP 17; TEMP 97; O2SAT 96
[2024-08-24 05:45] LABS: Hematocrit 36.4 % (41.0-53.0); Hemoglobin 12.5 g/dL (13.5-17.5); Mean Corpuscular Hemoglobin 32.3 pg (28.0-32.0); Mean Corpuscular Volume 93.8 fL (80.0-100.0); Nucleated Red Blood Cells % 0.1 %
[2024-08-24 05:53] LABS: Anion Gap 8 (5-15); Carbon Dioxide 25 mmol/L (20-31); Potassium 3.9 mmol/L (3.5-5.1); Sodium 142 mmol/L (136-145)
[2024-08-24 05:54] LABS: Calcium 8.7 mg/dL (8.7-10.4)
[2024-08-24 05:59] LABS: BUN/Creatinine Ratio 8.0 (10.0-20.0); Blood Urea Nitrogen 11 mg/dL (9-23); Chloride 109 mmol/L (98-107); Glucose 91 mg/dL (74-106)
[2024-08-24 09:00] VITALS: BP 105/74; PULSE 64; RESP 16; TEMP 98.1; O2SAT 98
[2024-08-24] MEDS ORDERED: LOSARTAN POTASSIUM 50 MG TAB PO SCH (10:00)
[2024-08-24] MEDS: ENOXAPARIN SOD 40 MG/0.4 ML SYRINGE SC SCH (10:17)
[2024-08-24] MEDS ORDERED: AUG875T PO (13:47)
--- NOTE | 2024-08-24 17:44 | DVHDSRES ---
Discharge Summary Date of Admission Resident Creating Document: LEA LY Aug 21, 2024 at 22:18 Date of Discharge: Aug 24, 2024 Admitting Diagnosis Gastroenteritis Labs/Diagnostic Data: Laboratory Results Test 08/24/24 04:55 08/22/24 03:25 08/21/24 22:50 08/21/24 13:46 White Blood Count 4.3 10^3/uL (4.4-10.8) Red Blood Count 3.88 10^6/uL (4.5-5.90) Hemoglobin 12.5 g/dL (13.5-17.5) Hematocrit 36.4 % (41.0-53.0) Mean Corpuscular Volume 93.8 fL (80.0-100.0) Mean Corpuscular Hemoglobin 32.3 pg (28.0-32.0) Mean Corpuscular Hemoglobin Concent 34.4 g/dL (32.0-36.0) Red Cell Distribution Width 13.8 % (11.8-14.3) Platelet Count 164 10^3/uL (140-450) Mean Platelet Volume 8.1 fL (6.9-10.8) Neutrophils (%) (Auto) 61.9 % (37.0-80.0) Lymphocytes (%) (Auto) 25.1 % (10.0-50.0) Monocytes (%) (Auto) 9.3 % (0.0-12.0) Eosinophils (%) (Auto) 2.9 % (0.0-7.0) Basophils (%) (Auto) 0.8 % (0.0-2.0) Neutrophils # (Auto) 2.7 10 ^3/uL (1.6-8.6) Lymphocytes # (Auto) 1.1 10 ^3/uL (0.4-5.4) Monocytes # (Auto) 0.4 10 ^3/uL (0-1.3) Eosinophils # (Auto) 0.1 10 ^3/uL (0-0.8) Basophils # (Auto) 0 10 ^3/uL (0-0.2) Nucleated Red Blood Cells 0.1 % Sodium Level 142 mmol/L (136-145) Potassium Level 3.9 mmol/L (3.5-5.1) Chloride Level 109 mmol/L (98-107) Carbon Dioxide Level 25 mmol/L (20-31) Anion Gap 8 (5-15) Blood Urea Nitrogen 11 mg/dL (9-23) Creatinine 1.37 mg/dL (0.700-1.30) Glomerular Filtration Rate Calc 58 mL/min (>90) BUN/Creatinine Ratio 8.0 (10.0-20.0) Serum Glucose 91 mg/dL (74-106) Calcium Level 8.7 mg/dL (8.7-10.4) Triglycerides Level 141 mg/dL (< 150) Cholesterol Level 174 mg/dL (< 200) LDL Cholesterol 113 mg/dL (< 100) HDL Cholesterol 38 mg/dL (40-59) Vitamin B12 Level 327 pg/mL (211-911) Folic Acid 8.21 ng/mL (>5.38) Thyroid Stimulating Hormone (TSH) 1.85 uIU/mL (0.55-4.78) Total Triiodothyronine (TT3) 1.03 ng/mL (0.60-1.81) Lactic Acid Level 0.7 mmol/L (0.4-2.0) B-Type Natriuretic Peptide 24.44 pg/mL (0-100) Test 08/21/24 13:00 Urine Color Yellow (Yellow) Urine Clarity Turbid (Clear) Urine pH 5.5 (5.0-9.0) Urine Specific Peck 1.020 (1.001-1.035) Urine Protein 1+ (Negative) Urine Ketones Negative (Negative) Urine Blood Negative /uL (Negative) Urine Nitrite Negative (Negative) Urine Bilirubin Negative (Negative) Urine Urobilinogen Normal mg/dL (Negative) Urine Leukocyte Esterase Negative /uL (Negative) Urine RBC 2 /hpf (0 - 3) Urine Microscopic WBC 2 /HPF (0-3) Urine Squamous Epithelial Cells Few /hpf (<5) Urine Calcium Oxalate Crystals Mod (None Seen) Urine Bacteria None seen /hpf (None Seen) Urine Hyaline Casts Few /lpf (0 - 2) Urine Mucus Few (None Seen) Urine Yeast (Budding) Occasional /hpf (None Urine Glucose Normal mg/dL (Normal) Other Laboratory Tests 08/24/24 04:55 Brief Hx & Hospital Course: Patient is a 64-year-old male with past medical history of CKD, hypertension, hyperlipidemia, tardive dyskinesia, coronary artery disease, anxiety, depression, nephrolithiasis, history of fall 2 months ago, C diff colitis, and previous hospitalizations due to sepsis, came to the ED with chief complaints of nausea and vomiting since 2 weeks which got worse for the last 2 days associated with abdominal pain which was intermediate 6/10 and in intensity, stabbing in nature with no radiation all no aggravating or relieving factors and diarrhea since 2 days. The vomit contained food material but no blood. Patient states that he has alternate diarrhea and constipation, and vomiting since a long time. Patient also had a UTI 1 month ago and treated with antibiotics. He takes Wellbutrin and Seroquel for anxiety, depression, last seen by the psychiatrist 2 months ago. Patient had undergone a colonoscopy 3 years ago which had benign polyps. He also complained that he could not pee for 2 days before getting admitted to the hospital. Patient was admitted with sepsis secondary to acute infectious gastroenteritis, ruled out C diff. imaging revealed finding consistent with rapid transit/ data state. Patient was managed with IV ciprofloxacin and metronidazole along with supportive care including IVF and antiemetics. Initially clear liquid diet was initiated, later advanced to cardiac diet and tolerated well. patient also obtained with MINOO likely from volume depletion from diarrhea, administered IVF and continuously monitored labs. For the chronic medical problems like hypothyroidism, vitamin-D deficiency, depression and anxiety with estimated home medications. Patient condition was improved, hemodynamically stable in condition to discharge home with optimal medical treatment as prescribed and advised to follow up with PCP on outpatient. He is stable for discharge and comunicated understanding of his discharge plan and the medications he should and should not take. General: Patient alert and oriented in person, place and time. Patient following commands. HEENT: Normocephalic, atraumatic, moist mucous membranes Respiratory/pulmonary: Clear lungs bilaterally, vesicular murmurs present in almost all lung benjamin, no associated crackles or wheezes. Cardiovascular: Normal heart sounds S1 and S2 with no associated murmurs Abdomen: Abdomen nondistended, there is no pain to palpation in any of the abdominal quadrants, no palpable masses. Extremities: There is no peripheral edema present at the lower extremities. Peripheral Pulses: 3+ Radial (R). 3+ Radial (L). 3+ Dorsalis pedis (R). 3+ Dorsalis pedis(L) Skin: No rashes or pruritus, there is no sacral edema present at this time. Neurological: Intact cranial nerves with no focal neurologic deficits( involuntary movements due to medication side effect) Operations or Procedures IMPRESSION: 1. Intraluminal fluid throughout the colon, suggesting rapid transit / diarrheal state. 2. Coronary artery disease. Condition at Discharge: Stable Final Diagnosis/Problems List # Sepsis due to acute gastroenteritis, likely infectious etiology # ruled out C diff # MINOO due to VMN # Normal anion gap metabolic acidosis # Hypothyroidism, TSH 8.16 (06/08/2024) # History of anxiety # History of depression-No suicide or homicide ideations # Vitamin D deficiency # Urinary incontinence # Tardive dyskinesia due to side effects of medications Discharge Disposition: Home Discharge Instruct/Medications Diet: Cardiac 2g Na,low cholest, Renal Activity: No Restrictions, As Tolerated Follow Up/Referral: Follow up with PCP in 1-2 weeks Medications: As Per EMR Scheduled Albuterol Sulfate (Albuterol Sulfate Hfa), 2 PUFF INH PRN, (Reported) Amlodipine Besylate (Amlodipine Besylate), 1 TAB PO DAILY, (Reported) Amoxicillin & Pot Clavulanate (Augmentin Tablet), 875 MG PO BID Bupropion Hcl (Bupropion Hcl Xl), 1 TAB PO DAILY, (Reported) Ergocalciferol (Vitamin D 02230 Unit), 50,000 UNIT PO weekly Escitalopram Oxalate (Escitalopram Oxalate), 1 TAB PO DAILY, (Reported) Quetiapine Fumerate (Quetiapine Fumarate), 50 TAB PO HS, (Reported) Miscellaneous Medications Hydrocodone-Acetaminophen ([place] 10/325MG), (Reported) [Phenergan], (Reported) Discharge Statement: "Patient was advised to return to the ER or call 911 if any headaches, dizziness, shortness of breath, chest pain, abdominal pain, bleeding, fevers, or worsening of medical condition. Patient was counseled about treatment plan, medications, possible side effects, patientverbalized understanding. All questions were answered to the best of my ability. This discharge took greater then 30 minutes in planning, reviewing documentation, counseling the patient, and discussing with other team members." ASSESSMENT ASSESSMENT Assessment # Sepsis due to acute gastroenteritis, ruled out C diff Date of Service: Aug 24, 2024 Billing Provider: LANA SORIA MD Common Visit Codes: 60526-DOO/OBS DISCH DAY >30min LEA LY RESIDENT Aug 24, 2024 17:44 LANA SORIA MD Aug 24, 2024 22:14
== END 2024-08-24 14:42 | disposition home or self-care (01) | DRG 871 ==
LOC: EDBD 12:48 → ER 12:48 → OVERFLOW 22:18 → EAST 08-22 05:15
PROVIDERS: ADMIT Student in an Organized Health Care Education/Training Program; ATTEND Student in an Organized Health Care Education/Training Program
DX: A41.9 Sepsis, unspecified organism (principal); N17.0 Acute kidney failure with tubular necrosis; E87.20 Acidosis, unspecified; A09 Infectious gastroenteritis and colitis, unspecified; E03.9 Hypothyroidism, unspecified; E55.9 Vitamin D deficiency, unspecified; G24.01 Drug induced subacute dyskinesia; R32 Unspecified urinary incontinence; I12.9 Hypertensive chronic kidney disease with stage 1 through stage 4 chronic kidney disease, or unspecified chronic kidney disease; N18.9 Chronic kidney disease, unspecified; Z96.643 Presence of artificial hip joint, bilateral; F41.9 Anxiety disorder, unspecified; F32.A Depression, unspecified; I25.10 Atherosclerotic heart disease of native coronary artery without angina pectoris; T50.995A Adverse effect of other drugs, medicaments and biological substances, initial encounter; K59.00 Constipation, unspecified; E78.5 Hyperlipidemia, unspecified; Z87.442 Personal history of urinary calculi; Z87.440 Personal history of urinary (tract) infections; Z79.899 Other long term (current) drug therapy; Z91.148 Patient's other noncompliance with medication regimen for other reason; Z87.891 Personal history of nicotine dependence; Y92.89 Other specified places as the place of occurrence of the external cause
CPT/HCPCS: 36415; 71045; 74176; 80048; 80061; 81001; 82607; 82746; 83605; 83880; 84443; 84480; 85025; 87040; 87086; 96361; 96374; 96375; G0378; J2405; J3490

== ENCOUNTER 2024-09-26 19:25 | Emergency (ER) | payer MEDICARE ==
[~2024-09-26] VITALS: Ht 167.6 cm; Wt 61.1 kg
[~2024-09-26 19:25] MED LIST changes: -AMIT-399 PO; +AUG875T PO; -OXYB5TAB24; -TAMS-35; -TRAM-626 PO; -TRAZ-227; -VENL25TA40
[2024-09-26] MEDS: SODIUM CHLORIDE 0.9% 1,000 ML IVB ONE (20:00)
[2024-09-26 20:12] LABS: Hematocrit 48.2 % (41.0-53.0); Hemoglobin 16.7 g/dL (13.5-17.5); Mean Corpuscular Hemoglobin 31.9 pg (28.0-32.0); Mean Corpuscular Volume 92.2 fL (80.0-100.0); Nucleated Red Blood Cells % 0.3 %
[2024-09-26 20:25] LABS: Alanine Aminotransferase 17 U/L (7-40); Anion Gap 14 (5-15); BUN/Creatinine Ratio 8.0 (10.0-20.0); Blood Urea Nitrogen 13 mg/dL (9-23); Calcium 10.0 mg/dL (8.7-10.4); Carbon Dioxide 20 mmol/L (20-31); Chloride 106 mmol/L (98-107); Lipase 44 U/L (12-53); Potassium 3.7 mmol/L (3.5-5.1); Sodium 140 mmol/L (136-145); Total Protein 7.5 g/dL (5.7-8.2)
[2024-09-26 20:26] LABS: Albumin 5.5 g/dL (3.2-4.8); Alkaline Phosphatase 138 U/L (46-116); Bilirubin, Total 0.7 mg/dL (0.2-1.0); Glucose 111 mg/dL (74-106)
--- NOTE | 2024-09-26 21:00 | ED.PDOC ---
History of Present Illness HPI Comments 64 y/o M presents with 2x day history of constant nausea and vomiting, with associated poor appetite and generalized weakness. Patient comments on progressively worsening symptoms following unprovoked and atraumatic onset. He reports also on having an episode of diarrhea a week ago that resolved on its own, already, along with a right hip and femur fracture that remain untreated, due to insurance issues. Extensive past medical history of CKD, hypertension, hyperlipidemia, tardive dyskinesia, coronary artery disease, anxiety, depression, nephrolithiasis, history of fall 3 months ago and current right hip and femur fracture, C diff colitis, UTI's, and previous hospitalizations due to sepsis. Patient comments of suspicion on being septic, again. Denial of any abdominal pain, bloody or bilious vomitus, diarrhea, constipation, fever, chills, or further acute symptoms. Chief Complaint: Abdominal Pain Time Seen by MD: 19:30 Primary Care Provider: UNKNOWN Reviewed Notes: Nurses Notes, Medications, Allergies Allergies: Coded Allergies: NO KNOWN ALLERGIES (Unverified , 04/02/20) Home Meds Active Scripts Metoclopramide Hcl (Reglan) 10 Mg Tab, 10 MG PO Q8HP PRN, #30 TAB Prov:IRAJ HERRERA MD 09/26/24 Ondansetron HCl (Ondansetron Hydrochloride) 8 Mg Tab, 8 MG PO Q6HP PRN, #30 TAB Prov:IRAJ HERRERA MD 09/26/24 Amoxicillin & Pot Clavulanate (AUGMENTIN TABLET) 875 Mg Tb, 875 MG PO BID for 5 Days, #10 TAB Prov:DAVID ESTRADA RESIDENT 08/24/24 Ergocalciferol (VITAMIN D 62409 UNIT) 50,000 [place], [address] UNIT PO weekly for 10 Days, #10 CAP Prov:DAVID ESTRADA RESIDENT 06/09/24 Reported Medications Albuterol Sulfate (Albuterol Sulfate Hfa) 108 Mcg/Act Aer, 2 PUFF INH PRN 11/10/23 Bupropion Hcl (Bupropion Hcl Xl) 300 Mg Tab, 1 TAB PO DAILY 11/10/23 Quetiapine Fumerate (QUETIAPINE FUMARATE) 50 Mg Tab, 50 TAB PO HS 11/10/23 Escitalopram Oxalate (ESCITALOPRAM OXALATE) 20 Mg Tab, 1 TAB PO DAILY 11/10/23 Amlodipine Besylate (Amlodipine Besylate) 10 Mg Tab, 1 TAB PO DAILY 11/10/23 [Phenergan] No Conflict Check 10/13/09 Hydrocodone-Acetaminophen ([place] 10/325MG) 1 Tab Tb 10/13/09 Information Source: Patient Mode of Arrival: Ambulatory Past Medical History PAST MEDICAL HISTORY: Anxiety, CAD, CKF, Depression, High Lipids, HTN, Kidney Stones, UTI'S Past Medical History (Other): C diff colitis tardive dyskinesia history of fall 3 months ago previous hospitalizations due to sepsis Family History Family History: Family hx of lung shilpa Social History Smoker: Non-Smoker Alcohol: Denies ETOH Use Drugs: Marijuana Lives In: Home All Other Systems: Reviewed and Negative (Comprehensive systems review obtained and negative except for what is stated in the HPI.) Physical Exam General Appearance: Mild Distress, Normal HEENT: Normal ENT Inspection, Pharynx Normal, TMs Normal Neck: Full Range of Motion, Non-Tender, Normal, Normal Inspection Respiratory: Chest Non-Tender, Lungs Clear, No Accessory Muscle Use, No Respiratory Distress, Normal Breath Sounds Cardiovascular: No Edema, No JVD, No Murmur, No Gallop, Normal Peripheral Pulses, Regular Rate/Rhythm Breast Exam: Deferred Gastrointestinal: No Organomegaly, Non Tender, No Pulsatile Mass, Normal Bowel Sounds, Soft Genitalia: Deferred Pelvic: Deferred Rectal: Deferred Extremities: No calf tenderness, Normal capillary refill, Normal inspection, Normal range of motion, Non-tender, No pedal edema Musculoskeletal : Apperance: Normal Neurologic: Alert, physical director II-XII nml as Tested, No Motor Deficits, Normal Affect, Normal Mood, No Sensory Deficits Cerebellar Function: Normal Reflexes: Normal Skin: Dry, Normal Color, Warm Lymphatic: No Adenopathy Was a procedure done? Was a procedure done?: No Differential Dx Considerations may include: gastritis, gastroenteritis, viral syndrome, dehydration, malnutrition, sepsis, among others X-Ray, Labs, Meds, VS Vital Signs Date Time Temp Pulse Resp B/P (MAP) Pulse Ox O2 Delivery O2 Flow Rate FiO2 09/27/24 00:55 91 20 145/69 09/27/24 00:25 89 20 167/93 09/27/24 00:05 98.9 58 20 167/93 (117) 96 98.9 09/27/24 00:05 63 20 96 Room Air 09/26/24 19:25 97.4 62 18 132/101 100 97.4 Lab Test 09/26/24 18:49 Range/Units White Blood Count 8.6 4.4-10.8 10^3/uL Red Blood Count 5.23 4.5-5.90 10^6/uL Hemoglobin 16.7 13.5-17.5 g/dL Hematocrit 48.2 41.0-53.0 % Mean Corpuscular Volume 92.2 80.0-100.0 fL Mean Corpuscular Hemoglobin 31.9 28.0-32.0 pg Mean Corpuscular Hemoglobin Concent 34.6 32.0-36.0 g/dL Red Cell Distribution Width 14.0 11.8-14.3 % Platelet Count 313 140-450 10^3/uL Mean Platelet Volume 8.7 6.9-10.8 fL Neutrophils (%) (Auto) 65.3 37.0-80.0 % Lymphocytes (%) (Auto) 20.5 10.0-50.0 % Monocytes (%) (Auto) 11.7 0.0-12.0 % Eosinophils (%) (Auto) 1.7 0.0-7.0 % Basophils (%) (Auto) 0.8 0.0-2.0 % Neutrophils # (Auto) 5.6 1.6-8.6 10 ^3/uL Lymphocytes # (Auto) 1.8 0.4-5.4 10 ^3/uL Monocytes # (Auto) 1.0 0-1.3 10 ^3/uL Eosinophils # (Auto) 0.1 0-0.8 10 ^3/uL Basophils # (Auto) 0.1 0-0.2 10 ^3/uL Nucleated Red Blood Cells 0.3 % Sodium Level 140 136-145 mmol/L Potassium Level 3.7 3.5-5.1 mmol/L Chloride Level 106 98-107 mmol/L Carbon Dioxide Level 20 20-31 mmol/L Anion Gap 14 5-15 Blood Urea Nitrogen 13 9-23 mg/dL Creatinine 1.63 H 0.700-1.30 mg/dL Glomerular Filtration Rate Calc 47 >90 mL/min BUN/Creatinine Ratio 8.0 L 10.0-20.0 Serum Glucose 111 H 74-106 mg/dL Calcium Level 10.0 8.7-10.4 mg/dL Total Bilirubin 0.7 0.2-1.0 mg/dL Aspartate Amino Transferase (AST) 24 13-40 U/L Alanine Aminotransferase (ALT) 17 7-40 U/L Alkaline Phosphatase 138 H 46-116 U/L Total Protein 7.5 5.7-8.2 g/dL Albumin 5.5 H 3.2-4.8 g/dL Lipase 44 12-53 U/L Current Medications Medications (Trade) Dose Ordered Sig/Elton Route Start Time Stop Time Status Last Admin Ondansetron HCl (Zofran) 4 mg ONCE ONCE IV 09/26/24 20:00 09/26/24 20:01 DC 09/27/24 00:25 Sodium Chloride 1,000 ml @ 1,000 mls/hr Q1H ONCE IVB 09/26/24 20:00 09/26/24 20:59 DC 09/26/24 20:00 Morphine Sulfate 4 mg ONCE ONCE IV 09/26/24 20:00 09/26/24 20:01 DC 09/27/24 00:25 Time of 1ST Reevaluation: 20:00 Reevaluation 1ST: Unchanged Patient Education/Counseling: Diagnosis, Treatment Family Education/Counseling: No Family Present SEPSIS Sepsis Screen Date sepsis recognized/suspect: Sep 26, 2024 Time Sepsis recognized/suspect: 1924 Recent Procedure: No On Antibiotic Therapy: No Respiratory Rate >20: No Heart Rate >90: No Temp<36 C (96.8 F) or >38.3 C: No SBP <90 or MAP <65 mmHG: No New Acute Mental Status Change: No Is the patient on CPAP, BIPAP,: No Physician Orders Urinalysis (09/26/24 19:38) Vital Signs Date Time Temp Pulse Resp B/P (MAP) Pulse Ox O2 Delivery O2 Flow Rate FiO2 09/27/24 00:55 91 20 145/69 09/27/24 00:25 89 20 167/93 09/27/24 00:05 98.9 58 20 167/93 (117) 96 98.9 09/27/24 00:05 63 20 96 Room Air 09/26/24 19:25 97.4 62 18 132/101 100 97.4 Laboratory Tests Test 09/26/24 18:49 White Blood Count 8.6 10^3/uL (4.4-10.8) Medications Medications Dose Ordered Sig/Elton Route Start Time Stop Time Status Last Admin Dose Admin Morphine Sulfate 4 mg ONCE ONCE IV 09/26/24 20:00 09/26/24 20:01 DC 09/27/24 00:25 Ondansetron HCl 4 mg ONCE ONCE IV 09/26/24 20:00 09/26/24 20:01 DC 09/27/24 00:25 Sodium Chloride 1,000 ml @ 1,000 mls/hr Q1H ONCE IVB 09/26/24 20:00 09/26/24 20:59 DC 09/26/24 20:00 Departure 1 Departure Time of Disposition: 22:00 Impression: Primary Impression: Nausea and vomiting Disposition: HOME / SELF CARE / HOMELESS Condition: Stable e-Prescriptions Metoclopramide Hcl (Reglan) 10 Mg Tab 10 MG PO Q8HP PRN, #30 TAB Prov: IRAJ HERRERA MD 09/26/24 Ondansetron HCl (Ondansetron Hydrochloride) 8 Mg Tab 8 MG PO Q6HP PRN, #30 TAB Prov: IRAJ HERRERA MD 09/26/24 Discharged With: Self Critical Care Note Critical Care Time?: No Stability Stability form required: No Heart Score Heart Score: Heart Score Response (Comments) Value History N/A 0 EKG N/A 0 Age N/A 0 Risk Factors N/A 0 Troponin N/A 0 Total 0 I personally scribed for IRAJ HERRERA MD ([email or web address]) on 09/26/24 at 21:00. Electronically submitted by Saleem Abdalla ([email or web address]). IRAJ HERRERA MD Sep 26, 2024 21:00
[2024-09-26] MEDS ORDERED: ONDA-180 PO (21:49)
[2024-09-26] MEDS ORDERED: METO-281 PO (21:49)
[2024-09-27 00:05] VITALS: TEMP 98.9; O2SAT 96
[2024-09-27] MEDS: MORPHINE SULFATE 4 MG/ML SYR/VIAL IV ONE (00:25)
[2024-09-27] MEDS: ONDANSETRON HCL 4 MG/2 ML VIAL IV ONE (00:25)
[2024-09-27 00:55] VITALS: BP 145/69; PULSE 91; RESP 20
== END 2024-09-27 01:45 | disposition home or self-care (01) ==
LOC: ER 19:25
DX: R11.2 Nausea with vomiting, unspecified (principal); E78.5 Hyperlipidemia, unspecified; I12.9 Hypertensive chronic kidney disease with stage 1 through stage 4 chronic kidney disease, or unspecified chronic kidney disease; N18.9 Chronic kidney disease, unspecified; F41.9 Anxiety disorder, unspecified; F32.A Depression, unspecified; F12.90 Cannabis use, unspecified, uncomplicated; I25.10 Atherosclerotic heart disease of native coronary artery without angina pectoris; Z79.899 Other long term (current) drug therapy; Z87.440 Personal history of urinary (tract) infections; Z87.442 Personal history of urinary calculi
CPT/HCPCS: 36415; 80053; 83690; 85025; 96361; 96374; 96375; 99284; J2270; J2405; J7030

== ENCOUNTER 2024-10-04 03:43 | Emergency (ER) | payer MEDICARE ==
[~2024-10-04] VITALS: Ht 167.6 cm; Wt 63.6 kg
[~2024-10-04 03:43] MED LIST changes: +METO-281 PO; +ONDA-180 PO
--- NOTE | 2024-10-04 04:36 | ED.PDOC ---
Back pain HPI HPI Comments 64-year-old male presents to ER for evaluation of lump on neck. Patient states that he has had a tender lump on the left side of his neck that he states "comes and goes" x "3-4 months". Patient state the lump currently isn't there but reports "his family made him come into ER to get it checked out". Patient denies any current pain and presents to ER ambulatory on arrival, with steady gait, in no distress. Denies fever, body aches, chills, night sweats, fatigue, weight loss, earache, sore throat, injury or any further symptoms/complaints Chief Complaint: Neck Pain Time Seen by MD: 03:56 Primary Care Provider: UNKNOWN Reviewed Notes: Nurses Notes, Medications, Allergies Allergies: Coded Allergies: NO KNOWN ALLERGIES (Unverified , 04/02/20) Home Meds Active Scripts Metoclopramide Hcl (Reglan) 10 Mg Tab, 10 MG PO Q8HP PRN, #30 TAB Prov:IRAJ HERRERA MD 09/26/24 Ondansetron HCl (Ondansetron Hydrochloride) 8 Mg Tab, 8 MG PO Q6HP PRN, #30 TAB Prov:IRAJ HERRERA MD 09/26/24 Amoxicillin & Pot Clavulanate (AUGMENTIN TABLET) 875 Mg Tb, 875 MG PO BID for 5 Days, #10 TAB Prov:DAVID ESTRADA RESIDENT 08/24/24 Ergocalciferol (VITAMIN D 55843 UNIT) 50,000 [place], [address] UNIT PO weekly for 10 Days, #10 CAP Prov:DAVID ESTRADA RESIDENT 06/09/24 Reported Medications Albuterol Sulfate (Albuterol Sulfate Hfa) 108 Mcg/Act Aer, 2 PUFF INH PRN 11/10/23 Bupropion Hcl (Bupropion Hcl Xl) 300 Mg Tab, 1 TAB PO DAILY 11/10/23 Quetiapine Fumerate (QUETIAPINE FUMARATE) 50 Mg Tab, 50 TAB PO HS 11/10/23 Escitalopram Oxalate (ESCITALOPRAM OXALATE) 20 Mg Tab, 1 TAB PO DAILY 11/10/23 Amlodipine Besylate (Amlodipine Besylate) 10 Mg Tab, 1 TAB PO DAILY 11/10/23 [Phenergan] No Conflict Check 10/13/09 Hydrocodone-Acetaminophen ([place] 10/325MG) 1 Tab Tb 10/13/09 Information Source: Patient Mode of Arrival: Ambulatory Past Medical History PAST MEDICAL HISTORY: Anxiety, CAD, CKF, Depression, High Lipids, HTN, Kidney Stones, UTI'S Surgical History: Denies all surgeries Family History Family History: Family hx of lung shilpa Social History Smoker: Non-Smoker Alcohol: Denies ETOH Use Drugs: Marijuana Lives In: Home Constitutional: denies: chills, diaphoresis, fatigue, fever, malaise, sweats, weakness, others EENTM: denies: blurred vision, double vision, ear bleeding, ear discharge, ear drainage, ear pain, ear ringing, eye pain, eye redness, hearing loss, mouth pain, mouth swelling, nasal discharge, nose bleeding, nose congestion, nose pain, photophobia, tearing, throat pain, throat swelling, voice changes, others Respiratory: denies: cough, hemoptysis, orthopnea, SOB at rest, shortness of breath, SOB with excertion, stridor, wheezing, others Cardiovascular: denies: chest pain, dizzy spells, diaphoresis, Dyspnea on exertion, edema, irregular heart beat, left arm pain, lightheadedness, palpitations, PND, syncope, others Gastrointestinal: denies: abdomen distended, abdominal pain, blood streaked bowels, constipated, diarrhea, dysphagia, difficulty swallowing, hematemesis, melena, nausea, poor appetite, poor fluid intake, rectal bleeding, rectal pain, vomiting, others Genitourinary: denies: burning, dysuria, flank pain, frequency, hematuria, incontinence, penile discharge, penile sore, pain, testicle pain, testicle swelling, urgency, others Neurological: denies: dizziness, fainting, headache, left sided numbness, left sided weakness, numbness, paresthesia, pre-existing deficit, right sided numbness, right sided weakness, seizure, speech problems, tingling, tremors, weakness, others Musculoskeletal: denies: back pain, gout, joint pain, joint swelling, muscle pain, muscle stiffness, neck pain, others Integumetry: reports: others (As stated in HPI) Allergic/Immunocompromised: denies: Difficulty Healing, Frequent Infections, Hives, Itching, others Hematologic/Lymphatic: denies: anemia, blood clots, easy bleeding, easy bruising, swollen glands, others Endocrine: denies: excessive hunger, excessive sweating, excessive thirst, excessive urination, flushing, intolerance to cold, intolerance to heat, unexplained weight gain, unexplained weight loss, others Psychiatric: denies: anxiety, bipolar disorder, depression, hopeless, panic disorder, schizophrenia, sleepless, suicidal, others Physical Exam General Appearance: No Apparent Distress HEENT: Normal ENT Inspection, PERRL/EOMI, Pharynx Normal, TMs Normal Neck: Full Range of Motion, Non-Tender (No palpable lumps or skin changes to neck appreciated. ), Normal, Normal Inspection Respiratory: Chest Non-Tender, Lungs Clear, No Accessory Muscle Use, No Respiratory Distress, Normal Breath Sounds Cardiovascular: No Murmur, No Gallop, Regular Rate/Rhythm Breast Exam: Deferred Gastrointestinal: NOT DONE Genitalia: Deferred Pelvic: Deferred Rectal: Deferred Extremities: Normal capillary refill, Normal range of motion Neurologic: Alert, filter tank tender helper II-XII nml as Tested, No Motor Deficits, Normal Affect, Normal Mood, No Sensory Deficits Cerebellar Function: Normal Reflexes: Normal Skin: Dry, Normal Color, Warm Peripheral Pulses: 2+ carotid (R), 2+ carotid (L), 2+ Radial (R), 2+ Radial (L), 2+ Brachial (R), 2+ Brachial (L) Lymphatic: No Adenopathy Was a procedure done? Was a procedure done?: No Sedation Sedation?: No Back Pain Differential Dx Differential Diagnosis: Fracture, Other (mass, neurovascular injury, strain) X-Ray, Labs, Meds, VS Vital Signs Date Time Temp Pulse Resp B/P (MAP) Pulse Ox O2 Delivery O2 Flow Rate FiO2 10/04/24 03:45 97.5 68 18 159/96 97 97.5 Patient asymptomatic during ER visit/prior to discharge Previous chart history reviewed Advised to follow up with PCP in 1-2 days Patient verbalized understanding and agreeable with current plan of care Advised to return to ER immediately if symptoms worsen Time of 1ST Reevaluation: 04:12 Reevaluation 1ST: N/A Patient Education/Counseling: Diagnosis, Treatment, Prognosis, Need For Follow Up Family Education/Counseling: No Family Present SEPSIS Sepsis Screen Date sepsis recognized/suspect: Oct 04, 2024 Time Sepsis recognized/suspect: 348 Recent Procedure: No On Antibiotic Therapy: No Respiratory Rate >20: No Heart Rate >90: No Temp<36 C (96.8 F) or >38.3 C: No SBP <90 or MAP <65 mmHG: No New Acute Mental Status Change: No Is the patient on CPAP, BIPAP,: No Vital Signs Date Time Temp Pulse Resp B/P (MAP) Pulse Ox O2 Delivery O2 Flow Rate FiO2 10/04/24 03:45 97.5 68 18 159/96 97 97.5 Departure 1 Departure Time of Disposition: 04:32 Impression: Primary Impression: Lump on neck Disposition: 01 HOME / SELF CARE / HOMELESS Condition: Stable Discharged With: Self Critical Care Note Critical Care Time?: No Stability Stability form required: No Heart Score Heart Score: Heart Score Response (Comments) Value History N/A 0 EKG N/A 0 Age N/A 0 Risk Factors N/A 0 Troponin N/A 0 Total 0 REESE CALLE Oct 04, 2024 04:36
[2024-10-04 04:48] VITALS: BP 123/85; PULSE 62; RESP 18; TEMP 97.8; O2SAT 96
== END 2024-10-04 04:55 | disposition home or self-care (01) ==
LOC: ER 03:43
DX: R22.1 Localized swelling, mass and lump, neck (principal); F12.90 Cannabis use, unspecified, uncomplicated; E78.5 Hyperlipidemia, unspecified; I12.9 Hypertensive chronic kidney disease with stage 1 through stage 4 chronic kidney disease, or unspecified chronic kidney disease; N18.9 Chronic kidney disease, unspecified; F41.9 Anxiety disorder, unspecified; F32.A Depression, unspecified; I25.10 Atherosclerotic heart disease of native coronary artery without angina pectoris; Z87.440 Personal history of urinary (tract) infections; Z79.899 Other long term (current) drug therapy

== ENCOUNTER 2024-11-06 17:50 | Emergency (ER) | payer MEDICARE ==
[~2024-11-06] VITALS: Ht 167.6 cm; Wt 63.0 kg
[2024-11-06] MEDS: ONDANSETRON HCL 4 MG/2 ML VIAL IV ONE (18:15)
[2024-11-06] MEDS: SODIUM CHLORIDE 0.9% 1,000 ML IV ONE (18:15)
--- NOTE | 2024-11-06 18:27 | ED.PDOC ---
History of Present Illness HPI Comments 64 y/o M presents with relative for c/c of nausea, vomiting, and fever. Patient endorses on having ongoing symptoms for the past 2x days in addition to running out his prescription Zofran medication. No endorsement of any recent spoiled food consumption, sick contact, or travel. Denial of any abdominal pain, bloody or bilious vomitus, diarrhea, constipations, urinary symptoms, fever, chills, or further associated symptoms. Chief Complaint: Nausea/Vomiting Time Seen by MD: 18:10 Primary Care Provider: UNKNOWN Reviewed Notes: Nurses Notes, Medications, Allergies Allergies: Coded Allergies: NO KNOWN ALLERGIES (Unverified , 04/02/20) Home Meds Active Scripts Promethazine HCl (Promethegan) 25 Mg Sup, 25 MG MO Q6HP PRN, #20 SUPP Prov:IRAJ HERRERA MD 11/06/24 Ondansetron HCl (Ondansetron Hydrochloride) 8 Mg Tab, 8 MG PO Q6HP PRN, #30 TAB Prov:IRAJ HERRERA MD 11/06/24 Metoclopramide Hcl (Reglan) 10 Mg Tab, 10 MG PO Q8HP PRN, #30 TAB Prov:IRAJ HERRERA MD 09/26/24 Ondansetron HCl (Ondansetron Hydrochloride) 8 Mg Tab, 8 MG PO Q6HP PRN, #30 TAB Prov:IRAJ HERRERA MD 09/26/24 Amoxicillin & Pot Clavulanate (AUGMENTIN TABLET) 875 Mg Tb, 875 MG PO BID for 5 Days, #10 TAB Prov:DAVID ESTRADA RESIDENT 08/24/24 Ergocalciferol (VITAMIN D 39509 UNIT) 50,000 [place], [address] UNIT PO weekly for 10 Days, #10 CAP Prov:DAVID ESTRADA RESIDENT 06/09/24 Reported Medications Albuterol Sulfate (Albuterol Sulfate Hfa) 108 Mcg/Act Aer, 2 PUFF INH PRN 11/10/23 Bupropion Hcl (Bupropion Hcl Xl) 300 Mg Tab, 1 TAB PO DAILY 11/10/23 Quetiapine Fumerate (QUETIAPINE FUMARATE) 50 Mg Tab, 50 TAB PO HS 11/10/23 Escitalopram Oxalate (ESCITALOPRAM OXALATE) 20 Mg Tab, 1 TAB PO DAILY 11/10/23 Amlodipine Besylate (Amlodipine Besylate) 10 Mg Tab, 1 TAB PO DAILY 11/10/23 [Phenergan] No Conflict Check 10/13/09 Hydrocodone-Acetaminophen ([place] 10/325MG) 1 Tab Tb 10/13/09 Information Source: Patient, Relative Mode of Arrival: Ambulatory Severity: Moderate Timing: Days Duration: Since onset Prehospital treatment: None Past Medical History PAST MEDICAL HISTORY: Anxiety, CAD, CKF, Depression, High Lipids, HTN, Kidney Stones, UTI'S Surgical History: Denies all surgeries Family History Family History: Family hx of lung shilpa Social History Smoker: Non-Smoker Alcohol: Denies ETOH Use Drugs: Marijuana Lives In: Home All Other Systems: Reviewed and Negative (Comprehensive review of systems are negative unless stated in HPI) Physical Exam General Appearance: Mild Distress, Normal HEENT: Normal ENT Inspection, Pharynx Normal, TMs Normal Neck: Full Range of Motion, Non-Tender, Normal, Normal Inspection Respiratory: Chest Non-Tender, Lungs Clear, No Accessory Muscle Use, No Respiratory Distress, Normal Breath Sounds Cardiovascular: No Edema, No JVD, No Murmur, No Gallop, Normal Peripheral Pulses, Regular Rate/Rhythm Breast Exam: Deferred Gastrointestinal: No Organomegaly, Non Tender, No Pulsatile Mass, Normal Bowel Sounds, Soft Genitalia: Deferred Pelvic: Deferred Rectal: Deferred Extremities: No calf tenderness, Normal capillary refill, Normal inspection, Normal range of motion, Non-tender, No pedal edema Musculoskeletal : Apperance: Normal 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 Was a procedure done?: No Differential Dx Considerations may include: viral syndrome, spoiled food, UTI, gastritis, gastroenteritis, dehydration, electrolyte imbalance, among others X-Ray, Labs, Meds, VS Vital Signs Date Time Temp Pulse Resp B/P (MAP) Pulse Ox O2 Delivery O2 Flow Rate FiO2 11/06/24 22:36 68 17 98 Room Air* 0 21 11/06/24 22:00 98.0 68 17 128/84 (99) 98 98.0 11/06/24 17:54 97.5 72 18 121/84 96 97.5 Lab Test 9/28/25 18:11 Range/Units White Blood Count 11.2 H 4.4-10.8 10^3/uL Red Blood Count 4.63 4.5-5.90 10^6/uL Hemoglobin 14.8 13.5-17.5 g/dL Hematocrit 43.5 41.0-53.0 % Mean Corpuscular Volume 94.0 80.0-100.0 fL Mean Corpuscular Hemoglobin 31.9 28.0-32.0 pg Mean Corpuscular Hemoglobin Concent 34.0 32.0-36.0 g/dL Red Cell Distribution Width 14.6 H 11.8-14.3 % Platelet Count 231 140-450 10^3/uL Mean Platelet Volume 8.2 6.9-10.8 fL Neutrophils (%) (Auto) 84.9 H 37.0-80.0 % Lymphocytes (%) (Auto) 8.5 L 10.0-50.0 % Monocytes (%) (Auto) 5.0 0.0-12.0 % Eosinophils (%) (Auto) 1.2 0.0-7.0 % Basophils (%) (Auto) 0.4 0.0-2.0 % Neutrophils # (Auto) 9.5 H 1.6-8.6 10 ^3/uL Lymphocytes # (Auto) 0.9 0.4-5.4 10 ^3/uL Monocytes # (Auto) 0.6 0-1.3 10 ^3/uL Eosinophils # (Auto) 0.1 0-0.8 10 ^3/uL Basophils # (Auto) 0 0-0.2 10 ^3/uL Nucleated Red Blood Cells 0.1 % Sodium Level 140 136-145 mmol/L Potassium Level 4.8 3.5-5.1 mmol/L Chloride Level 108 H 98-107 mmol/L Carbon Dioxide Level 23 20-31 mmol/L Anion Gap 9 5-15 Blood Urea Nitrogen 26 H 9-23 mg/dL Creatinine 1.54 H 0.700-1.30 mg/dL Glomerular Filtration Rate Calc 50 >90 mL/min BUN/Creatinine Ratio 16.9 10.0-20.0 Serum Glucose 124 H 74-106 mg/dL Calcium Level 9.2 8.7-10.4 mg/dL Magnesium Level 2.0 1.6-2.6 mg/dL Total Bilirubin 0.7 0.2-1.0 mg/dL Aspartate Amino Transferase (AST) 24 13-40 U/L Alanine Aminotransferase (ALT) 18 7-40 U/L Alkaline Phosphatase 128 H 46-116 U/L Troponin I High Sensitivity 5 </=54 ng/L Total Protein 7.0 5.7-8.2 g/dL Albumin 4.9 H 3.2-4.8 g/dL Current Medications Medications (Trade) Dose Ordered Sig/Elton Route Start Time Stop Time Status Last Admin Sodium Chloride 1,000 ml @ 1,000 mls/hr Q1H ONCE IV 11/06/24 18:15 11/06/24 19:14 DC 11/06/24 18:15 Ondansetron HCl (Zofran) 4 mg ONCE ONCE IV 11/06/24 18:15 11/06/24 18:16 DC 11/06/24 18:15 Time of 1ST Reevaluation: 18:40 Reevaluation 1ST: Unchanged Patient Education/Counseling: Diagnosis, Treatment, Need For Follow Up Family Education/Counseling: Diagnosis, Treatment, Need For Follow Up SEPSIS Sepsis Screen Date sepsis recognized/suspect: Nov 06, 2024 Time Sepsis recognized/suspect: 1751 Recent Procedure: No On Antibiotic Therapy: No Respiratory Rate >20: No Heart Rate >90: No Temp<36 C (96.8 F) or >38.3 C: No SBP <90 or MAP <65 mmHG: No New Acute Mental Status Change: No Is the patient on CPAP, BIPAP,: No Physician Orders Electrocardigram (11/06/24 18:02) Vital Signs Date Time Temp Pulse Resp B/P (MAP) Pulse Ox O2 Delivery O2 Flow Rate FiO2 11/06/24 22:36 68 17 98 Room Air* 0 21 11/06/24 22:00 98.0 68 17 128/84 (99) 98 98.0 11/06/24 17:54 97.5 72 18 121/84 96 97.5 Laboratory Tests Test 11/06/24 18:11 White Blood Count 11.2 10^3/uL (4.4-10.8) H Medications Medications Dose Ordered Sig/Elton Route Start Time Stop Time Status Last Admin Dose Admin Ondansetron HCl 4 mg ONCE ONCE IV 11/06/24 18:15 11/06/24 18:16 DC 11/06/24 18:15 Sodium Chloride 1,000 ml @ 1,000 mls/hr Q1H ONCE IV 11/06/24 18:15 11/06/24 19:14 DC 11/06/24 18:15 Departure 1 Departure Time of Disposition: 20:40 Impression: Primary Impression: Nausea and vomiting Additional Impression: Renal insufficiency Disposition: HOME / SELF CARE / HOMELESS Condition: Stable e-Prescriptions Promethazine HCl (Promethegan) 25 Mg Sup 25 MG MO Q6HP PRN, #20 SUPP Prov: IRAJ HERRERA MD 11/06/24 Ondansetron HCl (Ondansetron Hydrochloride) 8 Mg Tab 8 MG PO Q6HP PRN, #30 TAB Prov: IRAJ HERRERA MD 11/06/24 Discharged With: Self Critical Care Note Critical Care Time?: No Stability Stability form required: No Heart Score Heart Score: Heart Score Response (Comments) Value History N/A 0 EKG N/A 0 Age N/A 0 Risk Factors N/A 0 Troponin N/A 0 Total 0 I personally scribed for IRAJ HERRERA MD ([email or web address]) on 11/06/24 at 18:27. Electronically submitted by Saleem Abdalla ([email or web address]). IRAJ HERRERA MD Nov 06, 2024 18:27
[2024-11-06 18:35] LABS: Hematocrit 43.5 % (41.0-53.0); Hemoglobin 14.8 g/dL (13.5-17.5); Mean Corpuscular Hemoglobin 31.9 pg (28.0-32.0); Mean Corpuscular Volume 94.0 fL (80.0-100.0); Nucleated Red Blood Cells % 0.1 %
[2024-11-06 18:53] LABS: Alanine Aminotransferase 18 U/L (7-40); Anion Gap 9 (5-15); BUN/Creatinine Ratio 16.9 (10.0-20.0); Bilirubin, Total 0.7 mg/dL (0.2-1.0); Calcium 9.2 mg/dL (8.7-10.4); Carbon Dioxide 23 mmol/L (20-31); Magnesium 2.0 mg/dL (1.6-2.6); Potassium 4.8 mmol/L (3.5-5.1); Sodium 140 mmol/L (136-145); Total Protein 7.0 g/dL (5.7-8.2)
[2024-11-06 18:56] LABS: Albumin 4.9 g/dL (3.2-4.8); Alkaline Phosphatase 128 U/L (46-116); Blood Urea Nitrogen 26 mg/dL (9-23); Chloride 108 mmol/L (98-107); Glucose 124 mg/dL (74-106)
[2024-11-06 22:00] VITALS: BP 128/84; TEMP 98
[2024-11-06 22:36] VITALS: PULSE 68; RESP 17; O2SAT 98
[2024-11-06] MEDS ORDERED: PRO25RS PR (22:36)
== END 2024-11-06 22:43 | disposition home or self-care (01) ==
LOC: ER 17:50
DX: N28.9 Disorder of kidney and ureter, unspecified (principal); I10 Essential (primary) hypertension; F32.A Depression, unspecified; F41.9 Anxiety disorder, unspecified; Z79.899 Other long term (current) drug therapy; Z87.440 Personal history of urinary (tract) infections; Z87.442 Personal history of urinary calculi
CPT/HCPCS: 36415; 80053; 83735; 84484; 85025; 96361; 96374; 99283; J2405; J7030

== ENCOUNTER 2024-11-10 21:32 | Emergency (ER) | payer MEDICARE ==
[~2024-11-10] VITALS: Ht 167.6 cm; Wt 63.6 kg
[~2024-11-10 21:32] MED LIST changes: +PRO25RS PR
[2024-11-10] MEDS: SODIUM CHLORIDE 0.9% 1,000 ML IV ONE (21:45)
[2024-11-10 22:26] LABS: Hematocrit 43.4 % (41.0-53.0); Hemoglobin 15.2 g/dL (13.5-17.5); Mean Corpuscular Hemoglobin 32.4 pg (28.0-32.0); Mean Corpuscular Volume 92.3 fL (80.0-100.0); Nucleated Red Blood Cells % 0.0 %
[2024-11-10 22:32] LABS: Chloride 106 mmol/L (98-107); Potassium 3.8 mmol/L (3.5-5.1); Sodium 141 mmol/L (136-145)
[2024-11-10 22:33] LABS: Anion Gap 12 (5-15); Calcium 9.8 mg/dL (8.7-10.4); Carbon Dioxide 23 mmol/L (20-31)
[2024-11-10 22:38] LABS: BUN/Creatinine Ratio 12.2 (10.0-20.0); Blood Urea Nitrogen 22 mg/dL (9-23); Lipase 34 U/L (12-53)
[2024-11-10 22:45] LABS: Glucose 115 mg/dL (74-106)
[2024-11-11 01:38] VITALS: BP 95/67; PULSE 101; RESP 18; TEMP 97.9; O2SAT 95
[2024-11-11 01:49] LABS: Urine Protein, UAD TRACE (Negative)
[2024-11-11] MEDS ORDERED: DICY10CA PO (02:23)
[2024-11-11] MEDS ORDERED: ZOFR4T PO (02:23)
[2024-11-11] MEDS ORDERED: METO-281 PO (02:23)
--- NOTE | 2024-11-11 02:23 | ED.PDOC ---
GI ASSESSMENT HPI Comments Patient is a lean 64-year-old male who arrives to the ED today via EMS due to complaints of abdominal pain with nausea and vomiting for the past four days. Patient states the symptoms came on and has been relatively unrelenting. Patient has a history of GI concerns as well as intermittent and chronic nausea and vomiting. Patient was seen this facility two days ago for same complaints. Patient denies any fever. Chief Complaint: Abdominal Pain Time Seen by MD: 21:36 Primary Care Provider: UNKNOWN Reviewed Notes: Nurses Notes, Rn Ambulatory Notes Allergies: Coded Allergies: NO KNOWN ALLERGIES (Unverified , 04/02/20) Home Meds Active Scripts Promethazine HCl (Promethegan) 25 Mg Sup, 25 MG AR Q6HP PRN, #20 SUPP Prov:IRAJ HERRERA MD 11/06/24 Ondansetron HCl (Ondansetron Hydrochloride) 8 Mg Tab, 8 MG PO Q6HP PRN, #30 TAB Prov:IRAJ HERRERA MD 11/06/24 Metoclopramide Hcl (Reglan) 10 Mg Tab, 10 MG PO Q8HP PRN, #30 TAB Prov:IRAJ HERRERA MD 09/26/24 Ondansetron HCl (Ondansetron Hydrochloride) 8 Mg Tab, 8 MG PO Q6HP PRN, #30 TAB Prov:IRAJ HERRERA MD 09/26/24 Amoxicillin & Pot Clavulanate (AUGMENTIN TABLET) 875 Mg Tb, 875 MG PO BID for 5 Days, #10 TAB Prov:DAVID ESTRADA RESIDENT 08/24/24 Ergocalciferol (VITAMIN D 76384 UNIT) 50,000 [place], [address] UNIT PO weekly for 10 Days, #10 CAP Prov:DAVID ESTRADA RESIDENT 06/09/24 Reported Medications Albuterol Sulfate (Albuterol Sulfate Hfa) 108 Mcg/Act Aer, 2 PUFF INH PRN 11/10/23 Bupropion Hcl (Bupropion Hcl Xl) 300 Mg Tab, 1 TAB PO DAILY 11/10/23 Quetiapine Fumerate (QUETIAPINE FUMARATE) 50 Mg Tab, 50 TAB PO HS 11/10/23 Escitalopram Oxalate (ESCITALOPRAM OXALATE) 20 Mg Tab, 1 TAB PO DAILY 11/10/23 Amlodipine Besylate (Amlodipine Besylate) 10 Mg Tab, 1 TAB PO DAILY 11/10/23 [Phenergan] No Conflict Check 10/13/09 Hydrocodone-Acetaminophen ([place] 10/325MG) 1 Tab Tb 10/13/09 Information Source: Patient, Emergency Med Personnel Mode of Arrival: EMS Timing: Days Duration: Since onset, Intermittent Prehospital treatment: Treatment Quality: Sharp, Stabbing Vomitus: Food Particles, Soft, Watery Severity: Moderate Recent: None Recent Hx of: Other Pain Location: Epigastric Associated sign and symptoms: Nausea, Vomiting, Abdominal Pain Past Medical History PAST MEDICAL HISTORY: Anxiety, CAD, CKF, Depression, High Lipids, HTN, Kidney Stones, UTI'S Past Medical History (Other): History of chronic GI concerns Surgical History: Denies all surgeries Family History Family History: Family hx of lung shilpa Social History Smoker: Non-Smoker Alcohol: Denies ETOH Use Drugs: Marijuana Lives In: Home Constitutional: denies: chills, diaphoresis, fatigue, fever, malaise, sweats, weakness, others EENTM: denies: blurred vision, double vision, ear bleeding, ear discharge, ear drainage, ear pain, ear ringing, eye pain, eye redness, hearing loss, mouth pain, mouth swelling, nasal discharge, nose bleeding, nose congestion, nose pain, photophobia, tearing, throat pain, throat swelling, voice changes, others Respiratory: denies: cough, hemoptysis, orthopnea, SOB at rest, shortness of breath, SOB with excertion, stridor, wheezing, others Cardiovascular: denies: chest pain, dizzy spells, diaphoresis, Dyspnea on exertion, edema, irregular heart beat, left arm pain, lightheadedness, palpitations, PND, syncope, others Gastrointestinal: reports: abdominal pain, nausea, vomiting; denies: abdomen distended, blood streaked bowels, constipated, diarrhea, dysphagia, difficulty swallowing, hematemesis, melena, poor appetite, poor fluid intake, rectal bleeding, rectal pain, others Genitourinary: denies: burning, dysuria, flank pain, frequency, hematuria, incontinence, penile discharge, penile sore, pain, testicle pain, testicle swelling, urgency, others Neurological: denies: dizziness, fainting, headache, left sided numbness, left sided weakness, numbness, paresthesia, pre-existing deficit, right sided numbness, right sided weakness, seizure, speech problems, tingling, tremors, weakness, others Musculoskeletal: denies: back pain, gout, joint pain, joint swelling, muscle pain, muscle stiffness, neck pain, others Integumetry: denies: bruises, change in color, change in hair/nails, dryness, laceration, lesions, lumps, rash, wounds, others Allergic/Immunocompromised: denies: Difficulty Healing, Frequent Infections, Hives, Itching, others Hematologic/Lymphatic: denies: anemia, blood clots, easy bleeding, easy bruisi ng, swollen glands, others Endocrine: denies: excessive hunger, excessive sweating, excessive thirst, exce ssive urination, flushing, intolerance to cold, intolerance to heat, unexplained weight gain, unexplained weight loss, others Psychiatric: denies: anxiety, bipolar disorder, depression, hopeless, panic disorder, schizophrenia, sleepless, suicidal, others Physical Exam General Appearance: Moderate Distress (Moderate distress due to abdominal pain and nausea and vomiting.), Thin HEENT: Normal ENT Inspection, Pharynx Normal, TMs Normal Neck: Full Range of Motion, Non-Tender, Normal, Normal Inspection Respiratory: Chest Non-Tender, Lungs Clear, No Accessory Muscle Use, No Respiratory Distress, Normal Breath Sounds Cardiovascular: No Edema, No JVD, No Murmur, No Gallop, Normal Peripheral Pulses, Regular Rate/Rhythm Breast Exam: Deferred Gastrointestinal: Other (Nonspecific diffuse epigastric tenderness to palpation. Abdomen was reasonably soft. No pulsatile masses. No signs of trauma.) Genitalia: Deferred Pelvic: Deferred Rectal: Deferred Extremities: No calf tenderness, No pedal edema Neurologic: Alert Cerebellar Function: NOT DONE Reflexes: NOT DONE Skin: Dry, Normal Color, Warm Lymphatic: No Adenopathy Was a procedure done? Was a procedure done?: No GI differential Dx Differential Diagnosis: Gastritis/PUD, Gastroenteritis, Pancreatitis, UTI, Other (Chronic abdominal pain) X-Ray, Labs, Meds, VS Vital Signs Date Time Temp Pulse Resp B/P (MAP) Pulse Ox O2 Delivery O2 Flow Rate FiO2 11/11/24 01:38 101 18 95 Room Air 11/11/24 01:38 97.9 101 18 95/67 (76) 95 97.9 11/10/24 21:48 97.6 100 20 130/100 96 97.6 Lab Test 11/11/24 00:05 11/10/24 22:02 Range/Units Urine Color Yellow Yellow Urine Clarity Clear Clear Urine pH 7.0 5.0-9.0 Urine Specific Ewing 1.019 1.001-1.035 Urine Protein Trace H Negative Urine Ketones Negative Negative Urine Blood Negative Negative /uL Urine Nitrite Negative Negative Urine Bilirubin Negative Negative Urine Urobilinogen Normal Negative mg/dL Urine Leukocyte Esterase Negative Negative /uL Urine RBC 1 0 - 3 /hpf Urine Microscopic WBC 2 0-3 /HPF Urine Squamous Epithelial Cells Few <5 /hpf Urine Calcium Oxalate Crystals Few None Seen Urine Bacteria None seen None Seen /hpf Urine Hyaline Casts Mod 0 - 2 /lpf Urine Granular Casts Mod 0 /lpf Urine Mucus Few None Seen Urine Glucose Normal Normal mg/dL White Blood Count 9.6 4.4-10.8 10^3/uL Red Blood Count 4.70 4.5-5.90 10^6/uL Hemoglobin 15.2 13.5-17.5 g/dL Hematocrit 43.4 41.0-53.0 % Mean Corpuscular Volume 92.3 80.0-100.0 fL Mean Corpuscular Hemoglobin 32.4 H 28.0-32.0 pg Mean Corpuscular Hemoglobin Concent 35.1 32.0-36.0 g/dL Red Cell Distribution Width 14.9 H 11.8-14.3 % Platelet Count 239 140-450 10^3/uL Mean Platelet Volume 8.6 6.9-10.8 fL Neutrophils (%) (Auto) 82.0 H 37.0-80.0 % Lymphocytes (%) (Auto) 8.7 L 10.0-50.0 % Monocytes (%) (Auto) 8.1 0.0-12.0 % Eosinophils (%) (Auto) 1.0 0.0-7.0 % Basophils (%) (Auto) 0.2 0.0-2.0 % Neutrophils # (Auto) 7.9 1.6-8.6 10 ^3/uL Lymphocytes # (Auto) 0.8 0.4-5.4 10 ^3/uL Monocytes # (Auto) 0.8 0-1.3 10 ^3/uL Eosinophils # (Auto) 0.1 0-0.8 10 ^3/uL Basophils # (Auto) 0 0-0.2 10 ^3/uL Nucleated Red Blood Cells 0.0 % Sodium Level 141 136-145 mmol/L Potassium Level 3.8 3.5-5.1 mmol/L Chloride Level 106 98-107 mmol/L Carbon Dioxide Level 23 20-31 mmol/L Anion Gap 12 5-15 Blood Urea Nitrogen 22 9-23 mg/dL Creatinine 1.81 H 0.700-1.30 mg/dL Glomerular Filtration Rate Calc 41 >90 mL/min BUN/Creatinine Ratio 12.2 10.0-20.0 Serum Glucose 115 H 74-106 mg/dL Calcium Level 9.8 8.7-10.4 mg/dL Lipase 34 12-53 U/L Current Medications Medications (Trade) Dose Ordered Sig/Elton Route Start Time Stop Time Status Last Admin Sodium Chloride 1,000 ml @ 1,000 mls/hr Q1H ONCE IV 11/10/24 21:45 11/10/24 22:44 DC 11/10/24 21:45 X-Ray, Labs, Meds, VS Comment All studies performed the ED were evaluated by me personally. Serum and urinalysis was unremarkable for any systemic concerns. Patient appears to be experiencing continued chronic abdominal pain concerns. 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 Meds as needed. Time of 1ST Reevaluation: 02:21 Reevaluation 1ST: Improved Consultation: PCP, GI Patient Education/Counseling: Diagnosis, Treatment Family Education/Counseling: Diagnosis, Treatment SEPSIS Sepsis Screen Date sepsis recognized/suspect: Nov 11, 2024 Time Sepsis recognized/suspect: 0138 Recent Procedure: No On Antibiotic Therapy: No Respiratory Rate >20: No Heart Rate >90: Yes Temp<36 C (96.8 F) or >38.3 C: No SBP <90 or MAP <65 mmHG: No New Acute Mental Status Change: No Is the patient on CPAP, BIPAP,: No Physician Orders Heplock Iv (11/10/24 ) Vital Signs Date Time Temp Pulse Resp B/P (MAP) Pulse Ox O2 Delivery O2 Flow Rate FiO2 11/11/24 01:38 101 18 95 Room Air 11/11/24 01:38 97.9 101 18 95/67 (76) 95 97.9 11/10/24 21:48 97.6 100 20 130/100 96 97.6 Laboratory Tests Test 11/10/24 22:02 White Blood Count 9.6 10^3/uL (4.4-10.8) Medications Medications Dose Ordered Sig/Elton Route Start Time Stop Time Status Last Admin Dose Admin Sodium Chloride 1,000 ml @ 1,000 mls/hr Q1H ONCE IV 11/10/24 21:45 11/10/24 22:44 DC 11/10/24 21:45 Departure 1 Departure Time of Disposition: 02:22 Impression: Primary Impression: Chronic abdominal pain Additional Impression: Nausea and vomiting Disposition: HOME / SELF CARE / HOMELESS Condition: Stable Additional Instructions: Advised patient utilize medication as needed and additionally, patient should continue follow up with architecture internship to address his long-term GI concerns. e-Prescriptions Metoclopramide Hcl (Reglan) 10 Mg Tab 10 MG PO Q6HP PRN, #20 TAB Prov: IGNACIO JACOBSEN 11/11/24 Ondansetron Odt 4MG Tab (ZOFRAN PO) 4 Mg Tb 4 MG PO Q6HP PRN, #20 TAB ODT TAB-DISSOLVE IN MOUTH, THEN SWALLOW Prov: IGNACIO JACOBSEN 11/11/24 Dicyclomine Hcl (BENTYL CAPSULE) 10 Mg Cp 1 CAP PO Q6HPRN, #20 CAP 0 Refills Prov: IGNACIO JACOBSEN 11/11/24 Discharged With: Self, Friend Critical Care Note Critical Care Time?: No Stability Stability form required: No Heart Score Heart Score: Heart Score Response (Comments) Value History N/A 0 EKG N/A 0 Age N/A 0 Risk Factors N/A 0 Troponin N/A 0 Total 0 IGNACIO JACOBSEN Nov 11, 2024 02:23
[2024-11-11] MEDS: METOCLOPRAMIDE HCL 5MG/ml INJ 2ml VIAL IV ONE (02:44)
[2024-11-11] MEDS: ONDANSETRON HCL 4 MG/2 ML VIAL IV ONE (02:44)
== END 2024-11-11 03:15 | disposition home or self-care (01) ==
LOC: EDBD 21:32 → ER 21:32
DX: I12.9 Hypertensive chronic kidney disease with stage 1 through stage 4 chronic kidney disease, or unspecified chronic kidney disease (principal); G89.29 Other chronic pain; R10.13 Epigastric pain; R11.2 Nausea with vomiting, unspecified; E11.22 Type 2 diabetes mellitus with diabetic chronic kidney disease; N18.9 Chronic kidney disease, unspecified; E78.5 Hyperlipidemia, unspecified; F32.A Depression, unspecified; F41.9 Anxiety disorder, unspecified; Z79.899 Other long term (current) drug therapy; Z87.440 Personal history of urinary (tract) infections; Z87.442 Personal history of urinary calculi
CPT/HCPCS: 36415; 80048; 81001; 83690; 85025; 96361; 96374; 96375; 99284; J2405; J2765; J7030

== ENCOUNTER 2024-12-13 02:54 | Emergency (ER) | payer MEDICARE ==
[~2024-12-13] VITALS: Ht 170.2 cm; Wt 63.6 kg
[~2024-12-13 02:54] MED LIST changes: +DICY10CA PO; +ZOFR4T PO
[2024-12-13 03:00] VITALS: PULSE 83; RESP 19; O2SAT 98
[2024-12-13 04:47] LABS: Hematocrit 40.8 % (41.0-53.0); Hemoglobin 14.0 g/dL (13.5-17.5); Mean Corpuscular Hemoglobin 32.6 pg (28.0-32.0); Mean Corpuscular Volume 94.7 fL (80.0-100.0); Nucleated Red Blood Cells % 0.0 %
[2024-12-13 05:16] LABS: Alanine Aminotransferase 19 U/L (7-40); BUN/Creatinine Ratio 7.0 (10.0-20.0); Calcium 9.4 mg/dL (8.7-10.4); Glucose 83 mg/dL (74-106); Sodium 144 mmol/L (136-145); Total Protein 7.1 g/dL (5.7-8.2)
[2024-12-13 05:17] LABS: Bilirubin, Total 0.5 mg/dL (0.2-1.0)
[2024-12-13 05:55] LABS: Albumin 4.9 g/dL (3.2-4.8); Alkaline Phosphatase 134 U/L (46-116); Blood Urea Nitrogen 8 mg/dL (9-23); Chloride 108 mmol/L (98-107); Potassium 3.5 mmol/L (3.5-5.1)
[2024-12-13 05:56] LABS: Anion Gap 14 (5-15); Carbon Dioxide 22 mmol/L (20-31)
--- NOTE | 2024-12-13 06:02 | ED.PDOC ---
History of Present Illness HPI Comments 64-year-old male is brought in by ambulance from private residence for chief complaint of anxiety. Patient reports becoming anxious after receiving stressful news of regarding his siblings health and wellbeing. He comments then on drinking 16x beer bottles and experiencing chest pain afterwards. Significant history for CKF, GERD, IBS, and HTN. Patient denies on having any further acute symptoms. Chief Complaint: Anxiety Time Seen by MD: 03:00 Primary Care Provider: UNKNOWN Reviewed Notes: Nurses Notes, Manager Asset Management Notes, Medications, Allergies Allergies: Coded Allergies: NO KNOWN ALLERGIES (Unverified , 04/02/20) Home Meds Active Scripts Metoclopramide Hcl (Reglan) 10 Mg Tab, 10 MG PO Q6HP PRN, #20 TAB Prov:IGNACIO JACOBSEN PAC 11/11/24 Ondansetron Odt 4MG Tab (ZOFRAN PO) 4 Mg Tb, 4 MG PO Q6HP PRN, #20 TAB ODT TAB-DISSOLVE IN MOUTH, THEN SWALLOW Prov:IGNACIO JACOBSEN PAC 11/11/24 Dicyclomine Hcl (BENTYL CAPSULE) 10 Mg Cp, 1 CAP PO Q6HPRN, #20 CAP 0 Refills Prov:IGNACIO JACOBSEN PAC 11/11/24 Promethazine HCl (Promethegan) 25 Mg Sup, 25 MG UT Q6HP PRN, #20 SUPP Prov:IRAJ HERRERA MD 11/06/24 Ondansetron HCl (Ondansetron Hydrochloride) 8 Mg Tab, 8 MG PO Q6HP PRN, #30 TAB Prov:IRAJ HERRERA MD 11/06/24 Metoclopramide Hcl (Reglan) 10 Mg Tab, 10 MG PO Q8HP PRN, #30 TAB Prov:IRAJ HERRERA MD 09/26/24 Ondansetron HCl (Ondansetron Hydrochloride) 8 Mg Tab, 8 MG PO Q6HP PRN, #30 TAB Prov:IRAJ HERRERA MD 09/26/24 Amoxicillin & Pot Clavulanate (AUGMENTIN TABLET) 875 Mg Tb, 875 MG PO BID for 5 Days, #10 TAB Prov:DAVID ESTRADA 08/24/24 Ergocalciferol (VITAMIN D 26801 UNIT) 50,[address] [place], [address] UNIT PO weekly for 10 Days, #10 CAP Prov:DAVID ESTRADA RESIDENT 06/09/24 Reported Medications Albuterol Sulfate (Albuterol Sulfate Hfa) 108 Mcg/Act Aer, 2 PUFF INH PRN 11/10/23 Bupropion Hcl (Bupropion Hcl Xl) 300 Mg Tab, 1 TAB PO DAILY 11/10/23 Quetiapine Fumerate (QUETIAPINE FUMARATE) 50 Mg Tab, 50 TAB PO HS 11/10/23 Escitalopram Oxalate (ESCITALOPRAM OXALATE) 20 Mg Tab, 1 TAB PO DAILY 11/10/23 Amlodipine Besylate (Amlodipine Besylate) 10 Mg Tab, 1 TAB PO DAILY 11/10/23 [Phenergan] No Conflict Check 10/13/09 Hydrocodone-Acetaminophen ([place] 10/325MG) 1 Tab Tb 10/13/09 Information Source: Patient, Emergency Med Personnel Mode of Arrival: Ambulatory Severity: Moderate Timing: Hours Duration: Since onset Prehospital treatment: 12 Lead EKG, Accucheck, Cardroom Hand Past Medical History PAST MEDICAL HISTORY: Anxiety, CAD, CKF, Depression, High Lipids, HTN, Kidney Stones, UTI'S Surgical History: Denies all surgeries Family History Family History: Family hx of lung shilpa Social History Smoker: Non-Smoker Alcohol: Denies ETOH Use Drugs: Marijuana Lives In: Home All Other Systems: Reviewed and Negative (As per HPI) Physical Exam General Appearance: No Apparent Distress, Normal HEENT: Normal ENT Inspection, Pharynx Normal, TMs Normal Neck: Full Range of Motion, Non-Tender, Normal, Normal Inspection Respiratory: Chest Non-Tender, Lungs Clear, No Accessory Muscle Use, No Respiratory Distress, Normal Breath Sounds Cardiovascular: No Edema, No JVD, No Murmur, No Gallop, Normal Peripheral Pulses, Regular Rate/Rhythm Breast Exam: Deferred Gastrointestinal: No Organomegaly, Non Tender, No Pulsatile Mass, Normal Bowel Sounds, Soft Genitalia: Deferred Pelvic: Deferred Rectal: Deferred Extremities: No calf tenderness, Normal capillary refill, Normal inspection, Normal range of motion, Non-tender, No pedal edema Musculoskeletal : Apperance: Normal Neurologic: Alert, assembly manager II-XII nml as Tested, No Motor Deficits, Normal Mood, No Sensory Deficits, Other (Inebriated affect) Cerebellar Function: Normal Reflexes: Normal Skin: Dry, Normal Color, Warm Lymphatic: No Adenopathy Was a procedure done? Was a procedure done?: No Differential Dx Considerations may include: Alcohol intoxication, alcohol dependency, substance abuse, substance dependency, alcohol withdrawals, mi, PE, ACS, URI, among others X-Ray, Labs, Meds, VS Vital Signs Date Time Temp Pulse Resp B/P (MAP) Pulse Ox O2 Delivery O2 Flow Rate FiO2 12/13/24 10:00 86 17 141/87 (105) 99 12/13/24 08:00 98.2 88 17 127/83 (98) 99 98.2 12/13/24 07:00 86 24 127/83 (98) 95 12/13/24 05:00 78 18 133/81 (98) 95 12/13/24 04:00 83 19 134/82 (99) 97 12/13/24 03:01 97.6 80 26 146/94 99 97.6 12/13/24 03:00 97.8 84 19 153/92 (112) 98 97.8 12/13/24 03:00 83 19 98 Room Air* 0 21 12/13/24 02:55 79 Lab Test 12/13/24 08:44 12/13/24 06:45 12/13/24 03:55 Range/Units Troponin I High Sensitivity 7 7 8 </=54 ng/L White Blood Count 7.2 4.4-10.8 10^3/uL Red Blood Count 4.31 L 4.5-5.90 10^6/uL Hemoglobin 14.0 13.5-17.5 g/dL Hematocrit 40.8 L 41.0-53.0 % Mean Corpuscular Volume 94.7 80.0-100.0 fL Mean Corpuscular Hemoglobin 32.6 H 28.0-32.0 pg Mean Corpuscular Hemoglobin Concent 34.4 32.0-36.0 g/dL Red Cell Distribution Width 14.4 H 11.8-14.3 % Platelet Count 244 140-450 10^3/uL Mean Platelet Volume 8.0 6.9-10.8 fL Neutrophils (%) (Auto) 75.2 37.0-80.0 % Lymphocytes (%) (Auto) 13.1 10.0-50.0 % Monocytes (%) (Auto) 7.8 0.0-12.0 % Eosinophils (%) (Auto) 2.6 0.0-7.0 % Basophils (%) (Auto) 1.3 0.0-2.0 % Neutrophils # (Auto) 5.4 1.6-8.6 10 ^3/uL Lymphocytes # (Auto) 0.9 0.4-5.4 10 ^3/uL Monocytes # (Auto) 0.6 0-1.3 10 ^3/uL Eosinophils # (Auto) 0.2 0-0.8 10 ^3/uL Basophils # (Auto) 0.1 0-0.2 10 ^3/uL Nucleated Red Blood Cells 0.0 % Sodium Level 144 136-145 mmol/L Potassium Level 3.5 3.5-5.1 mmol/L Chloride Level 108 H 98-107 mmol/L Carbon Dioxide Level 22 20-31 mmol/L Anion Gap 14 5-15 Blood Urea Nitrogen 8 L 9-23 mg/dL Creatinine 1.14 0.700-1.30 mg/dL Glomerular Filtration Rate Calc 72 >90 mL/min BUN/Creatinine Ratio 7.0 L 10.0-20.0 Serum Glucose 83 74-106 mg/dL Calcium Level 9.4 8.7-10.4 mg/dL Total Bilirubin 0.5 0.2-1.0 mg/dL Aspartate Amino Transferase (AST) 28 13-40 U/L Alanine Aminotransferase (ALT) 19 7-40 U/L Alkaline Phosphatase 134 H 46-116 U/L Total Protein 7.1 5.7-8.2 g/dL Albumin 4.9 H 3.2-4.8 g/dL Plasma/Serum Blood Alcohol 129.2 H <10 mg/dL Time of 1ST Reevaluation: 03:30 Reevaluation 1ST: Unchanged Patient Education/Counseling: Diagnosis, Treatment Family Education/Counseling: No Family Present SEPSIS Sepsis Screen Date sepsis recognized/suspect: Dec 13, 2024 Time Sepsis recognized/suspect: 304 Recent Procedure: No On Antibiotic Therapy: No Respiratory Rate >20: No Heart Rate >90: No Temp<36 C (96.8 F) or >38.3 C: No SBP <90 or MAP <65 mmHG: No New Acute Mental Status Change: No Is the patient on CPAP, BIPAP,: No Physician Orders Electrocardigram (12/13/24 04:00) Electrocardigram (12/13/24 06:00) Chest Xray 1 View (12/13/24 03:06) Vital Signs Date Time Temp Pulse Resp B/P (MAP) Pulse Ox O2 Delivery O2 Flow Rate FiO2 12/13/24 10:00 86 17 141/87 (105) 99 12/13/24 08:00 98.2 88 17 127/83 (98) 99 98.2 12/13/24 07:00 86 24 127/83 (98) 95 12/13/24 05:00 78 18 133/81 (98) 95 12/13/24 04:00 83 19 134/82 (99) 97 12/13/24 03:01 97.6 80 26 146/94 99 97.6 12/13/24 03:00 97.8 84 19 153/92 (112) 98 97.8 12/13/24 03:00 83 19 98 Room Air* 0 21 12/13/24 02:55 79 Laboratory Tests Test 12/13/24 03:55 White Blood Count 7.2 10^3/uL (4.4-10.8) Departure 1 Departure Time of Disposition: 10:41 (Patient presenting with alcohol intoxication. Patient is now clinically sober. We will discharge patient home) Impression: Primary Impression: Alcohol intoxication Disposition: 01 HOME / SELF CARE / HOMELESS Condition: Stable Additional Instructions: You were intoxicated. It is important to only drink in moderation. If you need help quitting you can call (HELP). If your symptoms worsen or you have any other concerns then please return to the ER. Discharged With: Self Critical Care Note Critical Care Time?: No Stability Stability form required: No Heart Score Heart Score: Heart Score Response (Comments) Value History Slightly Suspicious 0 EKG Normal 0 Age 45-64 1 Risk Factors >3 or Hx ASHD 2 Troponin Normal limit 0 Total 3 I personally scribed for IRAJ HERRERA MD ([email or web address]) on 12/13/24 at 06:02. Electronically submitted by Saleem Abdalla ([email or web address]). IRAJ HERRERA MD Dec 13, 2024 06:02 HOWARD YANES MD Dec 13, 2024 10:42
--- NOTE | 2024-12-13 06:51 | DVH ---
CHEST RADIOGRAPH Indication: chest pain Technique: Single frontal view of the chest was obtained COMPARISON: XY CHEST XRAY 1 VIEW on DOS: 08/22/24 FINDINGS: Lines and Tubes: None Lungs: Clear Pleura: No effusion. No pneumothorax. Cardiomediastinal contours: Unremarkable Bones: Unremarkable IMPRESSION: No acute disease.
--- NOTE | 2024-12-13 06:58 | ECG ---
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
[2024-12-13 08:00] VITALS: TEMP 98.2
[2024-12-13 10:00] VITALS: BP 141/87; PULSE 86; RESP 17; O2SAT 99
== END 2024-12-13 10:52 | disposition home or self-care (01) ==
LOC: EDBD 02:54 → ER 02:54
DX: F10.129 Alcohol abuse with intoxication, unspecified (principal); F41.9 Anxiety disorder, unspecified; R07.9 Chest pain, unspecified; F32.A Depression, unspecified; I10 Essential (primary) hypertension; I25.10 Atherosclerotic heart disease of native coronary artery without angina pectoris; K21.9 Gastro-esophageal reflux disease without esophagitis; Z87.442 Personal history of urinary calculi; Z79.899 Other long term (current) drug therapy; Y90.9 Presence of alcohol in blood, level not specified
CPT/HCPCS: 36415; 71045; 80053; 80320; 84484; 85025; 93005